=== PATIENT | male | born 1965 | race Caucasian/White ===

== ENCOUNTER 2023-07-11 08:11 | Outpatient (OUT) | payer OTHER, SELFPAY ==
[2023-07-11 08:39] LABS: Basophils Absolute Auto 0.1 10^3/uL (0.0-0.1); Basophils Percent Auto 1.7 % (0.2-2.0); Eosinophils Percent Auto 0.5 % (0.9-7.0); Hematocrit 46.7 % (42.0-54.0); Hemoglobin 15.5 g/dL (14.0-18.0); Immature Granulocytes Pct Auto 1.7 % (0.0-0.5); Lymphocytes Absolute Auto 1.6 10^3/uL (1.2-3.8); Lymphocytes Percent Auto 26.2 % (20.5-60.0); Mean Corpuscular HGB Conc 33.2 g/dL (29.9-35.2); Mean Corpuscular Hemoglobin 29.6 pg (25.9-34.0); Mean Corpuscular Volume 89.3 fL (80.0-94.0); Monocytes Absolute Auto 1.1 10^3/uL (0.3-0.8); Monocytes Percent Auto 18.7 % (1.7-12.0); Neutrophils Absolute Auto 3.1 10^3/uL (1.4-6.5); Neutrophils Percent Auto 51.2 % (43.0-75.0); Platelet Count 144 10^3/uL (150-450); Red Blood Count 5.23 10^6/uL (4.70-6.10); Red Cell Distribution Width 13.2 % (11.0-15.0)
[2023-07-11 08:56] LABS: Alanine Aminotransferase 44 U/L (16-63); Albumin Globulin Ratio 0.9; Albumin Level 3.8 g/dL (3.4-5.0); Alkaline Phosphatase 59 U/L (46-116); Anion Gap 11.5; Aspartate Amino Transferase 38 U/L (15-37); BUN Creatinine Ratio 14.4; Bilirubin Total 0.7 mg/dL (0.2-1.0); Calcium 9.6 mg/dL (8.5-10.1); Carbon Dioxide 30.6 mmol/L (21.0-32.0); Chloride 99 mmol/L (98-107); Chol HDL Ratio 5.3; Cholesterol 282 mg/dL (<=200); Estimated GFR (African America >60 (>=60); Estimated GFR (Non-African Ame >60 (>=60); Globulin 4.3 g/dL; Glucose 117 mg/dL (74-106); HDL Cholesterol 53 mg/dL (40-60); Potassium 4.1 mmol/L (3.5-5.1); Sodium 137 mmol/L (136-145); Total Protein 8.1 g/dL (6.4-8.2); Triglycerides 201 mg/dL (<=150); VLDL CHOLESTEROL 40.2 mg/dL
[2023-07-11 09:16] LABS: Prostate Specific Antigen Scrn 1.58 ng/mL (<=4.00)
== END 2023-07-11 08:12 | disposition home or self-care (01) ==
LOC: LAB 08:15
PROVIDERS: PCP Internal Medicine; Visit Provider Internal Medicine
DX: Z00.00 Encounter for general adult medical examination without abnormal findings (principal)
CPT/HCPCS: 36415; 80053; 80061; 85025; G0103

== ENCOUNTER 2023-09-28 06:44 | Outpatient (OUT) | payer OTHER, SELFPAY ==
--- OUTSIDE RECORDS SUMMARY | 2023-09-28 06:47 | XMS_ITS | CCD ---
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 Name Role Phone Devendra Carr Primary Care Provider BERT WOOTEN Referring Unavailable DEVENDRA CARR Primary Care Unavailable Devendra Carr Primary Care Provider Devendra Carr DO Primary Care Provider [phone] DEVENDRA CARR Referring Unavailable DEVENDRA CARR Primary Care Unavailable Devendra Carr DO Primary Care Provider [phone] DR DEVENDRA CARR Attending Unavailable BALL, DR VIDALES Consulting Unavailable BALL, DR VIDALES Primary Care Unavailable BALL, DR VIDALES Admitting Unavailable Devendra Carr Unavailable Desmond Stoll Unavailable [phone] Allergies Allergy Classification Reported Allergen(s) Allergy Type Date of Onset Reaction(s) Facility (4 sources) Penicillins Propensity to adverse reactions to drug 0 [employer] Phone: (1 source) Penicillins Drug allergy (disorder) 5 [facility] Repository (7 sources) Substance with penicillin structure and antibacterial mechanism of action (substance) Drug allergy 5 Unknown [employer] Other Medications Current Medications Medication Drug Class(es) Dates Sig (Normalized) Sig (Original) atorvastatin 40 mg oral tablet (11 sources) HMG-CoA Reductase Inhibitor Start: 07-20-2019 atorvastatin (LIPITOR) 40 MG tablet take 5 tablets by mo uth every twenty-four hours Atorvastatin Calcium 40 MG 5 mL Orally Once a day for 30 days Active take 1 tablet by john paul th every twenty-four hours Atorvastatin Calcium 80 MG 1 tablet Oral ly Once a day Active cyproheptadine hydrochloride 4 mg oral tablet (11 sources) Start: 07-31-2018 take 1 tablet by mouth three times daily as needed cyproheptadine (PERIACTIN) 4 MG tablet TAKE 1/2 TO 1 TABLET BY MOUTH THREE TIMES DAILY NEEDED FOR ITCHING 0 07/31/2018 Active take 1 tablet by john paul th once daily at bedtime Cyproheptadine HCl 4 MG 1 tablet Orally qhs Not-Taking/PRN loratadine 10 mg oral tablet (7 sources) take 1 tablet by john paul th every twenty-four hours Claritin 10 MG 1 tablet Orally Once a day Active Completed/Discontinued Medications Medication Drug Class(es) Dates Sig (Normalized) Sig (Original) azithromycin 250 mg oral tablet (7 sources) Macrolide Antimicrobial Start: 05-20-2023 Azithromycin 250 MG as directed Orally daily for 5 days May, Not-Taking/PRN doxycycline hyclate 100 mg oral capsule (6 sources) Tetracycline-class Drug Start: 06-04-2023 take 1 capsule by mouth every twelve hours Doxycycline Hyclate 100 MG 1 capsule Orally Twice a day for 7 days May, Not-Taking/PRN fludeoxyglucose F 18 injection 12.46 millicurie (1 source) Start: 07-01-2019 End: 07-01-2019 fludeoxyglucose F 18 injection 12.46 [facility] levoFLOXacin 500 mg oral tablet (6 sources) Quinolone Antimicrobial Start: 06-04-2023 take 1 tablet by mouth every twenty-four hours levoFLOXacin 500 MG 1 tablet Orally Once a day for 7 days May, Not-Taking/PRN 10 ml lidocaine hydrochloride 10 mg/ml injection (1 source) Antiarrhythmic, Amide Local Anesthetic Start: 08-18-2019 End: 08-18-2019 lidocaine PF 1 % injection Suprep Bowel Prep . (7 sources) Start: 07-21-2014 Suprep Bowel Prep . as directed Orally as directed for 1 dose(s) Jul, Not-Taking/PRN Start: 07-21-2014 Suprep Bowel P rep . as directed Orally as directed for 1 dose(s) Jul, Not-Taking Problems Active Problems Problem Classification Problem Date Documented Da te Episodic/Chronic Acute bronchitis (2 sources) Acute bronchitis due to other specified organisms Episodic Allergic reactions (7 sources) Idiopathic urticaria; Translations: [Idiopathic urticaria] Episodic Cancer of testis (7 sources) Malignant neoplasm of descended left testis; Translations: [Primary malignant neoplasm of left descended testis (disorder)] Chronic Cancer of testis (1 source) Personal history of malignant neoplasm of testis Episodic Diabetes mellitus without complication (1 source) Hyperglycemia, unspecified Episodic Disorders of lipid metabolism (10 sources) Pure hypercholesterolemi a; 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 Hyperplasia of prostate (7 sources) Lower urinary tract symptoms due to benign prostatic hypertrophy; Translations: [Benign prostatic hyperplasia with lower urinary tract symptoms] Chronic Lymphadenitis (9 sources) Lymphadenopathy; Translations: [Axillary lymphadenopathy] Episodic Other and unspecified benign neoplasm (7 sources) Lipoma of left upper limb; Translations: [Benign lipomatous neoplasm of skin and subcutaneous tissue of left arm] Episodic Other and unspecified benign neoplasm (5 sources) History of polyp of colon; Translations: [Personal history of colonic polyps] Episodic Other and unspecified benign neoplasm (1 source) Personal history of colonic polyps Episodic Other liver diseases (7 sources) Steatosis of liver; Translations: [Fatty (change of) liver, not elsewhere classified] Chronic Other lower respiratory disease (7 sources) Nodule of lung; Translations: [Solitary pulmonary nodule] Episodic Other nutritional; endocrine; and metabolic disorders (12 sources) Body mass index 30+ - obesity; Translations: [Body mass index (BMI) 36.0-36.9, adult] Chronic Other nutritional; endocrine; and metabolic disorders (7 sources) Severe obesity; Translations: [Morbid (severe) obesity due to excess calories] Chronic Other nutritional; endocrine; and metabolic disorders (2 sources) Morbid (severe) obesity due to excess calories Chronic Other nutritional; endocrine; and metabolic disorders (1 source) Body mass index (BMI) 36.0-36.9, adult Chronic Other nutritional; endocrine; and metabolic disorders (1 source) Body mass index (BMI) 38.0-38.9, adult Chronic Other screening for suspected conditions (not mental disorders or infectious disease) (3 sources) Encounter for screening for malignant neoplasm of prostate; Translations: [Encounter for screening for malignant neoplasm of colon] Onset: 06-28-2022 Episodic Other skin disorders (7 sources) Hair follicle disorder; Translations: [Other specified follicular disorders] Episodic Residual codes; unclassified (7 sources) Family history of cancer of colon; Translations: [Family history of malignant neoplasm of digestive organs] Episodic Residual codes; unclassified (1 source) Family history of malignant neoplasm of digestive organs Episodic Past or Other Problems Problem Classification Problem Date Documented Da te Episodic/Chronic Other lower respiratory disease (1 source) Solitary nodule of lung; Translations: [Incidental pulmonary nodule] Episodic Other lower respiratory disease (1 source) Lung mass Episodic Results Test Name Value Interpretation Reference Range Facility CBC AUTO DIFFon 06-23-2022 BASO # 0.1 103/ul Normal 0.0-0.1 [facility] Comment on above: Performed By: #### C BC #### [facility] [address] [address] [address] Yonas Ivan Basophils/100 WBC (Bld) 1.8 % Normal 0.2-2.0 [facility] Comment on above: Performed By: #### C BC #### [facility] [address] [address] [address] Yonas Ivan EO # 0.2 103/ul Normal 0.0-0.7 [facility] Comment on above: Performed By: #### C BC #### [facility] [address] [address] [address] Yonas Ivan Eosinophils/100 WBC (Bld) 2.7 % Normal 0.9-7.0 [facility] Comment on above: Performed By: #### C BC #### [facility] [address] [place] [address] Dr. Yonas Ivan Erythrocyte distribution width (RBC) [Ratio] 13.1 % Normal 11.0-15.0 [facility] Comment on above: Performed By: #### C BC #### [facility] [address] [place] [address] Dr. Yonas Ivan Hematocrit (Bld) [Volume fraction] 46.8 % Normal 42.0-54.0 [facility] Comment on above: Performed By: #### C BC #### [facility] [address] [place] [address] Dr. Yonas Ivan Hemoglobin (Bld) [Mass/Vol] 15.9 g/dL Normal 14.0-18.0 [facility] Comment on above: Performed By: #### C BC #### [facility] [address] [address] [address] Yonas Ivan IG # 0.09 10e3/ul Critically high 0.00-0.03 [facility] Comment on above: Performed By: #### C BC #### [facility] [address] [address] [address] Yonas Ivan IG % 1.2 % Critically high 0.0-0.5 [facility] Comment on above: Performed By: #### C BC #### [facility] [address] [place] [address] Dr. Yonas Ivan LYMPH # 1.5 103/ul Normal 1.2-3.8 [facility] Comment on above: Performed By: #### C BC #### [facility] [address] [place] [address] Dr. Yonas Ivan Lymphocytes/100 WBC (Bld) 21.2 % Normal 20.5-60.0 [facility] Comment on above: Performed By: #### C BC #### [facility] [address] [place] [address] Dr. Yonas Ivan MANUAL DIFF REQ NO Normal [facility] Comment on above: Performed By: #### C BC #### [facility] [address] [place] [address] Dr. Yonas Ivan MCH (RBC) [Entitic mass] 29.3 pg Normal 25.9-34.0 [facility] Comment on above: Performed By: #### C BC #### [facility] [address] [place] [address] Dr. Yonas Ivan MCHC (RBC) [Mass/Vol] 34.0 g/dL Normal 29.9-35.2 [facility] Comment on above: Performed By: #### C BC #### [facility] [address] [place] [address] Dr. Yonas Ivan MCV (RBC) [Entitic vol] 86.2 fL Normal 80.0-94.0 [facility] Comment on above: Performed By: #### C BC #### [facility] [address] [address] [address] Yonas Ivan MONO # 0.6 103/ul Normal 0.3-0.8 [facility] Comment on above: Performed By: #### C BC #### [facility] [address] [place] [address] Dr. Yonas Ivan Monocytes/100 WBC (Bld) 8.0 % Normal 1.7-12.0 [facility] Comment on above: Performed By: #### C BC #### [facility] [address] [place] [address] Dr. Yonas Ivan NEUT # 4.7 103/ul Normal 1.4-6.5 [facility] Comment on above: Performed By: #### C BC #### [facility] [address] [place] [address] Dr. Yonas Ivan Neutrophils/100 WBC (Bld) 65.1 % Normal 43.0-75.0 [facility] Comment on above: Performed By: #### C BC #### [facility] [address] [place] [address] Dr. Yonas Ivan Platelet mean volume (Bld) [Entitic vol] 9.0 fL Critically low 9.5-13.5 [facility] Comment on above: Performed By: #### C BC #### [facility] [address] [place] [address] Dr. Yonas Ivan PLT 173 103/ul Normal 150-450 [facility] Comment on above: Performed By: #### C BC #### [facility] [address] [place] [address] Dr. Yonas Ivan RBC 5.43 106/ul Normal 4.70-6.10 [facility] Comment on above: Performed By: #### C BC #### [facility] [address] [place] [address] Dr. Yonas Ivan WBC 7.3 103/ul Normal 4.0-11.0 [facility] Comment on above: Performed By: #### C BC #### [facility] [address] [place] [address] Dr. Yonas Ivan LIPID PROFILEon 06-23-2022 CHOL-HDL RATIO NORM SEE BELOW Normal [facility] Comment on above: Result Comment: 3.3 - 4.4 LOW RISK 4.4 - 7.1 AVERAGE RISK 7.1 - 11.0 MODERATE RISK >11.0 HIGH RISK Performed By: #### L IPID, CMP #### [facility] [address] [address] [address] Yonas Ivan Cholesterol [Mass/Vol] 256 mg/dL Critically high <=200 [facility] Comment on above: Performed By: #### L IPID, CMP #### [facility] [address] [address] [address] Yonas Ivan Cholesterol in HDL [Mass/Vol] 52 mg/dL Normal 40-60 [facility] Comment on above: Performed By: #### L IPID, CMP #### [facility] [address] [address] [address] Yonas Ivan Cholesterol in LDL [Mass/Vol] 169.8 mg/dL Normal [facility] Comment on above: Performed By: #### L IPID, CMP #### [facility] [address] [address] [address] Yonas Ivan Cholesterol.total/C holesterol in HDL [Mass ratio] 4.9 {ratio} Normal [facility] Comment on above: Performed By: #### L IPID, CMP #### [facility] [address] [address] [address] Yonas Ivan HDL NORMAL > or = 60 mg/dl - LO W CARDIOVASCULAR RISK <40 mg/dl - HIGH CARDIOVASCULAR RISK Normal [facility] Comment on above: Performed By: #### L IPID, CMP #### [facility] [address] [address] [address] Yonas Ivan LDL CALC NORMAL SEE BELOW Normal [facility] Comment on above: Result Comment: <100 mg/dl OPTIMAL 100 - 129 mg/dl NEAR OR ABOVE OPTIMAL 130 - 159 mg/dl BORDERLINE HIGH 160 - 189 mg/dl HIGH >190 mg/dl VERY HIGH Performed By: #### L IPID, CMP #### [facility] [address] [address] [address] Yonas Ivan Triglyceride [Mass/Vol] 171 mg/dL Critically high <=150 [facility] Comment on above: Performed By: #### L IPID, CMP #### [facility] [address] [place] [address] Dr. Yonas Ivan VLDL CALC 34.2 mg/dL Normal [facility] Comment on above: Performed By: #### L IPID, CMP #### [facility] [address] [place] [address] Dr. Yonas Ivan PROF 14(COMP METB)on 022 Albumin [Mass/Vol] 4.0 g/dL Normal 3.4-5.0 [facility] Comment on above: Performed By: #### L IPID, CMP #### [facility] [address] [place] [address] Dr. Yonas Ivan Albumin/Globulin [Mass ratio] 1.1 {ratio} Normal [facility] Comment on above: Performed By: #### L IPID, CMP #### [facility] [address] [place] [address] Dr. Yonas Ivan ALP [Catalytic activity/Vol] 67 U/L Normal 46-116 [facility] Comment on above: Performed By: #### L IPID, CMP #### [facility] [address] [place] [address] Dr. Yonas Ivan ALT [Catalytic activity/Vol] 29 U/L Normal 16-63 [facility] Comment on above: Performed By: #### L IPID, CMP #### [facility] [address] [place] [address] Dr. Yonas Ivan Anion gap [Moles/Vol] 9.8 mmol/L Normal [facility] Comment on above: Performed By: #### L IPID, CMP #### [facility] [address] [place] [address] Dr. Yonas Ivan AST [Catalytic activity/Vol] 22 U/L Normal 15-37 [facility] Comment on above: Performed By: #### L IPID, CMP #### [facility] [address] [place] [address] Dr. Yonas Ivan Bilirubin [Mass/Vol] 0.6 mg/dL Normal 0.2-1.0 [facility] Comment on above: Performed By: #### L IPID, CMP #### [facility] [address] [place] [address] Dr. Yonas Ivan Calcium [Mass/Vol] 9.4 mg/dL Normal 8.5-10.1 [facility] Comment on above: Performed By: #### L IPID, CMP #### [facility] [address] [place] [address] Dr. Yonas Ivan Chloride [Moles/Vol] 101 mmol/L Normal 98-107 [facility] Comment on above: Performed By: #### L IPID, CMP #### [facility] [address] [place] [address] Dr. Yonas Ivan CO2 [Moles/Vol] 33.5 mmol/L Critically high 21.0-32.0 [facility] Comment on above: Performed By: #### L IPID, CMP #### [facility] [address] [place] [address] Dr. Yonas Ivan Creatinine [Mass/Vol] 0.97 mg/dL Normal 0.70-1.30 [facility] Comment on above: Performed By: #### L IPID, CMP #### [facility] [address] [place] [address] Dr. Yonas Ivan EGFR-AF DJIBOUTIAN >60 Normal >=60 [facility] Comment on above: Performed By: #### L IPID, CMP #### [facility] [address] [place] [address] Dr. Yonas Ivan EGFR-NON AF DJIBOUTIAN >60 Normal >=60 [facility] Comment on above: Performed By: #### L IPID, CMP #### [facility] [address] [place] [address] Dr. Yonas Ivan Globulin (S) [Mass/Vol] 3.7 g/dL Normal [facility] Comment on above: Performed By: #### L IPID, CMP #### [facility] [address] [address] [address] Yonas Ivan Glucose [Mass/Vol] 105 mg/dL Normal 74-106 [facility] Comment on above: Performed By: #### L IPID, CMP #### [facility] [address] [address] [address] Yonas Ivan Potassium [Moles/Vol] 4.3 mmol/L Normal 3.5-5.1 [facility] Comment on above: Performed By: #### L IPID, CMP #### [facility] [address] [place] [address] Dr. Yonas Ivan Protein [Mass/Vol] 7.7 g/dL Normal 6.4-8.2 [facility] Comment on above: Performed By: #### L IPID, CMP #### [facility] [address] [place] [address] Dr. Yonas Ivan Sodium [Moles/Vol] 140 mmol/L Normal 136-145 [facility] Comment on above: Performed By: #### L IPID, CMP #### [facility] [address] [place] [address] Dr. Yonas Ivan Urea nitrogen [Mass/Vol] 13.0 mg/dL Normal 7.0-18.0 [facility] Comment on above: Performed By: #### L IPID, CMP #### [facility] [address] [place] [address] Dr. Yonas Ivan Urea nitrogen/Creatinine [Mass ratio] 13.4 mg/mg Normal [facility] Comment on above: Performed By: #### L IPID, CMP #### [facility] [address] [place] [address] Dr. Yonas Ivan PSA, Screeningon 06-05-2021 Prostatic Spec. Ag 1.30 ug/L Normal <4.1 [facility] Comment on above: Result Comment: The [employer] ECLIA assay is used. Results obtained with different assay methods cannot be used interchangeably. Performed By: #### C P, ZFAST, CDP #### [facility] [address] [place] [address] [employer] Sales Representative: Leo Barnes MD #### PSAS, LIPR #### [employer] [address] [place] [address] [employer] Sales Representative: Al Arriaga MD CBC Auto Differentialon 11-2 Absolute Eos # 0.20 [facility] th Absolute Immature Granulocyte NOT REPORTED [facility] Absolute Lymph # 1.30 [facility] Absolute [place] # 0.50 [facility] He[facility] lth Basophils (Bld) [#/Vol] 0.10 10*3/uL [facility] Basophils/100 WBC (Bld) 1 % 0 - 2 % [facility] Differential Type YES [facility]alth Eosinophils/100 WBC (Bld) 3 % 0 - 5 % [facility] Hematocrit (Bld) [Volume fraction] 44.8 % 41 - 53 % [facility] Hemoglobin.gastroin testinal spec 1 Ql (Stl) 15.4 g/dL 13.5 - 17.5 g/dL [facility] Immature Granulocytes NOT REPORTED 0 % [facility] Lymphocytes/100 WBC (Bld) 18 % 13 - 44 % [facility] MCH (RBC) [Entitic mass] 29.8 pg 26 - [address] [facility] MCHC (RBC) [Mass/Vol] 34.3 g/dL 31 - 37 g/dL [facility] MCV (RBC) [Entitic vol] 87.0 fL 80 - [address] [facility] Monocytes/100 WBC (Bld) 7 % 5 - 9 % [facility] NRBC Automated NOT REPORTED per 100 WBC [facility] [employer] Platelet distribution width (Bld) [Ratio] 13.5 % 12.1 - 15.2 % [facility] Platelet Estimate NOT REPORTED [facility] Platelet mean volume (Bld) [Entitic vol] NOT REPORTED 6.0 - 12.[address] [facility] Platelets (Bld) [#/Vol] 218 10*3/uL [facility] RBC (Bld) [#/Vol] 5.15 10*6/uL 4.5 - 5.9 m/uL [facility] RBC (Bld) [#/Vol] NOT REPORTED [facility] Segmented neutrophils/100 WBC (Bld) 71 % 39 - 75 % [facility] Segs Absolute 5.40 [facility] W[facility] (Bld) [#/Vol] 7.5 10*3/uL [facility] WBC (Bld) [#/Vol] NOT REPORTED [facility] CBC with Diffon 06-04-2021 Abs. Basophil 0.10 k/uL Normal 0.0-0.2 [facility] Comment on above: Performed By: #### C P, ZFAST, CDP #### [facility] [address] [place] [address] [employer] Sales Representative: Leo Barnes MD #### PSAS, LIPR #### [address] [id number] [employer] Sales Representative: Al Arriaga MD Abs.Neutrophil (Seg) 5.40 k/uL Normal 2.1-6.5 [facility] Comment on above: Performed By: #### C P, ZFAST, CDP #### [facility] [address] [place] [address] [employer] Sales Representative: Leo Barnes MD #### PSAS, LIPR #### [address] [id number] [employer] Sales Representative: Al Arriaga MD Auto Diff Performed YES Normal [facility] Comment on above: Performed By: #### C P, ZFAST, CDP #### [facility] [address] [place], [place] [id number] [employer] Sales Representative: Leo Barnes MD #### PSAS, LIPR #### [address] [id number] [employer] Sales Representative: Al Arriaga MD Basophils/100 WBC (Bld) 1 % Normal 0-2 [facility] Comment on above: Performed By: #### C P, ZFAST, CDP #### [facility] [address] [place], [place] [id number] [employer] Sales Representative: Leo Barnes MD #### PSAS, LIPR #### [address], [place] [id number] [employer] Sales Representative: Al Arriaga MD Eosinophils (Bld) [#/Vol] 0.20 10*3/uL Normal 0.0-0.4 [facility] Comment on above: Performed By: #### C P, ZFAST, CDP #### [facility] [address] [place], [place] [id number] [employer] Sales Representative: Leo Barnes MD #### PSAS, LIPR #### [address] [place], [place] [id number] [employer] Sales Representative: Al Arriaga MD Eosinophils/100 WBC (Bld) 3 % Normal 0-5 [facility] Comment on above: Performed By: #### C P, ZFAST, CDP #### [facility] [address] [place] [address] [employer] Sales Representative: Leo Barnes MD #### PSAS, LIPR #### [id number] [place], [place] [id number] [employer] Sales Representative: Al Arriaga MD Erythrocyte distribution width (RBC) [Ratio] 13.5 % Normal 12.1-15.2 [facility] Comment on above: Performed By: #### C P, ZFAST, CDP #### [facility] [address] [place] [address] [employer] Sales Representative: Leo Barnes MD #### PSAS, LIPR #### [id number] [place], [place] [id number] [employer] Sales Representative: Al rAriaga MD Hematocrit (Bld) [Volume fraction] 44.8 % Normal 41-53 [facility] Comment on above: Performed By: #### C P, ZFAST, CDP #### [facility] [address] [place], [place] [id number] [employer] Sales Representative: Leo Barnes MD #### PSAS, LIPR #### [address] [place] [address] [employer] Sales Representative: Al Arriaga MD Hemoglobin (Bld) [Mass/Vol] 15.4 g/dL Normal 13.5-17.5 [facility] Comment on above: Performed By: #### C P, ZFAST, CDP #### [facility] Lab [address] [place], [place] [phone] Title Insurance Sales Representative: eLo Barnes MD #### PSAS, LIPR #### [address] [address] [employer] Sales Representative: Al Arriaga MD Lymphocytes (Bld) [#/Vol] 1.30 10*3/uL Normal 1.0-4.8 [facility] Comment on above: Performed By: #### C P, ZFAST, CDP #### [facility] Lab [address] [phone] [employer] Sales Representative: Leo Barnes MD #### PSAS, LIPR #### [address] [phone] [employer] Sales Representative: Al Arriaga MD Lymphocytes/100 WBC (Bld) 18 % Normal 13-44 [facility] Comment on above: Performed By: #### C P, ZFAST, CDP #### [facility] Lab [address] [phone] [employer] Sales Representative: Leo Barnes MD #### PSAS, LIPR #### [address] [phone] [employer] Sales Representative: Al Arriaga MD MCH (RBC) [Entitic mass] 29.8 pg Normal 26-34 [facility] Comment on above: Performed By: #### C P, ZFAST, CDP #### [facility] [address] [place], [place] [phone] [employer] Sales Representative: Leo Barnes MD #### PSAS, LIPR #### [address] [place], [place] [phone] [employer] Sales Representative: Al Arriaga MD MCHC (RBC) [Mass/Vol] 34.3 g/dL Normal 31-37 [facility] Comment on above: Performed By: #### C P, ZFAST, CDP #### [facility] [address] [phone] ( Title [employer] Sales Representative: Leo Barnes MD #### PSAS, LIPR #### [address] [phone] [employer] Sales Representative: Al Arriaga MD MCV (RBC) [Entitic vol] 87.0 fL Normal 80-100 [facility] Comment on above: Performed By: #### C P, ZFAST, CDP #### [facility] [address] [phone] ( Title [employer] Sales Representative: Leo Barnes MD #### PSAS, LIPR #### [address] [phone] [employer] Sales Representative: Al Arriaga MD Monocytes (Bld) [#/Vol] 0.50 10*3/uL Normal 0.0-1.0 [facility] Comment on above: Performed By: #### C P, ZFAST, CDP #### [facility] [address] [phone] [employer] Sales Representative: Leo Barnes MD #### PSAS, LIPR #### [address] [phone] [employer] Sales Representative: Al Arriaga MD Monocytes/100 WBC (Bld) 7 % Normal 5-9 [facility] Comment on above: Performed By: #### C P, ZFAST, CDP #### [facility] [address] [address] [employer] Sales Representative: Leo Barnes MD #### PSAS, LIPR #### [address] [place] [address] Title [employer] Sales Representative: Al Arriaga MD Neutrophil (Seg) 71 % Normal 39-75 [facility] Comment on above: Performed By: #### C P, ZFAST, CDP #### [facility] [address] [place] [address] Title [employer] Sales Representative: Leo Barnes MD #### PSAS, LIPR #### [address] [address] [employer] Sales Representative: Al Arriaga MD Platelets (Bld) [#/Vol] 218 10*3/uL Normal 140-450 [facility] Comment on above: Performed By: #### C P, ZFAST, CDP #### [facility] [address] [place] [address] [employer] Sales Representative: Leo Barnes MD #### PSAS, LIPR #### [address] [address] [employer] Sales Representative: Al Arriaga MD RBC (Bld) [#/Vol] 5.15 10*6/uL Normal 4.5-5.9 [facility] Comment on above: Performed By: #### C P, ZFAST, CDP #### [facility] [address] [place], [place] [phone] [employer] Sales Representative: Leo Barnes MD #### PSAS, LIPR #### [address] [id number] [employer] Sales Representative: Al Arriaga MD WBC (Bld) [#/Vol] 7.5 10*3/uL Normal 3.5-11.0 [facility] Comment on above: Performed By: #### C P, ZFAST, CDP #### [facility] [address] [place] [address] [employer] Sales Representative: Leo Barnes MD #### PSAS, LIPR #### [address] [phone] Title [employer] Sales Representative: Al Arriaga MD Abs.Imm.Granulocyte NOT REPORTED Normal 0.00-0.30 [facility] Comment on above: Performed By: #### C P, ZFAST, CDP #### [facility] [address] [place], [place] 2479290 Title [employer] Sales Representative: Leo Barnes MD #### PSAS, LIPR #### [address] [phone] Title [employer] Sales Representative: Al Arriaga MD Immature Granulocyte NOT REPORTED Normal 0 [facility] Comment on above: Performed By: #### C P, ZFAST, CDP #### [facility] [address] [phone] [employer] Sales Representative: Leo Barnes MD #### PSAS, LIPR #### [address] [phone] Title [employer] Sales Representative: Al Arriaga MD MPV NOT REPORTED Normal 6.0-12.0 [facility] Comment on above: Performed By: #### C P, ZFAST, CDP #### [facility] [address] [phone] [employer] Sales Representative: Leo Barnes MD #### PSAS, LIPR #### [address] [address] Title [employer] Sales Representative: Al Arriaga MD NRBC Automated NOT REPORTED Normal [facility] Comment on above: Performed By: #### C P, ZFAST, CDP #### [facility] [address] [place], [place] 1411090 Title [employer] Sales Representative: Leo Barnes MD #### PSAS, LIPR #### [address] [address] [employer] Sales Representative: Al Arriaga MD Platelet Comment NOT REPORTED Normal [facility] Comment on above: Performed By: #### C P, ZFAST, CDP #### [facility] [address] [place], [place] [phone] Title Insurance Sales Representative: Leo Barnes MD #### PSAS, LIPR #### [facility] [address] [place] [id number] [employer] Sales Representative: Al Arriaga MD RBC morphology finding Nom (Bld) NOT REPORTED Normal [facility] Comment on above: Performed By: #### C P, ZFAST, CDP #### [facility] [address] [place], [place] [phone] Title [employer] Sales Representative: Leo Barnes MD #### MARYLU, LIPR #### [address] [phone] [employer] Sales Representative: Al Arriaga MD WBC Morphology NOT REPORTED Normal [facility] Comment on above: Performed By: #### C PKOMALAST, CDP #### [facility] [address] [place] [address] [employer] Sales Representative: Leo Barnes MD #### PSAS, LIPR #### [address] [address] [employer] Sales Representative: Al Arriaga MD Comp Metabolic Profon 2020 (cont.) Normal [facility] Comment on above: Result Comment: Aver age GFR for 50-59 years old: 93 mL/min/1.73sq m Chronic Kidney Disease: <60 mL/min/1.73sq m Kidney failure: <15 mL/min/1.73sq m eGFR calculated using average adult body mass. Additional eGFR calculator available at: http://www.Rapidlea.com/multiple_crcl_2011.htm Performed By: #### C P ZFAST, CDP #### [facility] [address] [place], [place] [phone] Title [employer] Sales Representative: Leo Barnes MD #### PSAS, LIPR #### [address] [place], [place] [phone] Title [employer] Sales Representative: Al Arriaga MD Albumin [Mass/Vol] 4.5 g/dL Normal 3.5-5.2 [facility] Comment on above: Performed By: #### C P, ZFAST, CDP #### [facility] [address] [place], [place] [phone] [employer] Sales Representative: Leo Barnes MD #### MARYLU, LIPR #### [address] [phone] [employer] Sales Representative: Al Arriaga MD Alkaline Phos 66 U/L Normal 40-129 [facility] Comment on above: Performed By: #### C PKOMALAST, CDP #### [facility] [address] [place], [place] [phone] [employer] Sales Representative: Leo Barnes MD #### MARYLU, LIPR #### [address] [phone] [employer] Sales Representative: Al Arriaga MD ALT [Catalytic activity/Vol] 21 U/L Normal 5-41 [facility] Comment on above: Performed By: #### C P, ZFAST, CDP #### [facility] [address] [place], [place] [phone] [employer] Sales Representative: Leo Barnes MD #### PSAS, LIPR #### [address] [phone] [employer] Sales Representative: Al Arriaga MD Anion gap [Moles/Vol] 7 mmol/L Low 9-17 [facility] Comment on above: Performed By: #### C PKOMALAST, CDP #### [facility] [address] [place], [place] 9756190 Title [employer] Sales Representative: Leo Barnes MD #### PSAS, LIPR #### [address] [phone] [employer] Sales Representative: Al Arriaga MD AST [Catalytic activity/Vol] 19 U/L Normal <40 [facility] Comment on above: Performed By: #### C P, ZFAST, CDP #### [facility] [address] [place], [place] 1996390 [employer] Sales Representative: Leo Barnes MD #### MARYLU, LIPR #### [address] [phone] [employer] Sales Representative: Al Arriaga MD Bilirubin [Mass/Vol] 0.60 mg/dL Normal 0.30-1.20 [facility] Comment on above: Performed By: #### Len P, ZFAST, CDP #### [facility] [address] [place], [place] [phone] [employer] Sales Representative: Leo Barnes MD #### PSANoris, LIPR #### [address] [phone] [employer] Sales Representative: Al Arriaga MD BUN/CRE Ratio 19 Normal 9-20 [facility] Comment on above: Performed By: #### C P, ZFAST, CDP #### [facility] [address] [place], [place] [phone] Title [employer] Sales Representative: Leo Barnes MD #### PSAS, LIPR #### [address] [phone] [employer] Sales Representative: Al Arriaga MD Calcium [Mass/Vol] 10.0 mg/dL Normal 8.6-10.4 [facility] Comment on above: Performed By: #### C P, ZFAST, CDP #### [facility] [address] [place] [address] [employer] Sales Representative: Leo Barnes MD #### PSAS, LIPR #### [address] [place], [place] [phone] Title [employer] Sales Representative: Al Arriaga MD Chloride [Moles/Vol] 103 mmol/L Normal 98-107 [facility] Comment on above: Performed By: #### C P, ZFAST, CDP #### [facility] [address] [place], [place] [phone] [employer] Sales Representative: Leo Barnes MD #### PSAS, LIPR #### [address] [phone] [employer] Sales Representative: Al Arriaga MD CO2 [Moles/Vol] 30 mmol/L Normal 20-31 [facility] Comment on above: Performed By: #### C P, ZFAST, CDP #### [facility] [address] [phone] [employer] Sales Representative: Leo Barnes MD #### PSAS, LIPR #### [address] [phone] [employer] Sales Representative: Al Arriaga MD Creatinine [Mass/Vol] 0.90 mg/dL Normal 0.70-1.20 [facility] Comment on above: Performed By: #### C P, ZFAST, CDP #### [facility] [address] [place] [address] [employer] Sales Representative: Leo Barnes MD #### PSAS, LIPR #### [address] [phone] [employer] Sales Representative: Al Arriaga MD GFR, Amer >60 Normal >60 [facility] Comment on above: Performed By: #### C P, ZFAST, CDP #### [facility] [address] [place] [address] [employer] Sales Representative: Leo Barnes MD #### PSAS, LIPR #### [address] [place], [place] [phone] Title [employer] Sales Representative: Al Arriaga MD GFR,non Amer >60 Normal >60 [facility] Comment on above: Performed By: #### C P, ZFAST, CDP #### [facility] [address] [place], [place] [phone] [employer] Sales Representative: Leo Barnes MD #### PSAS, LIPR #### [address] [address] [place], [place] [phone] Title [employer] Sales Representative: Al Arriaga MD Glucose [Mass/Vol] 102 mg/dL High 70-99 [facility] Comment on above: Performed By: #### C P, ZFAST, CDP #### [facility] [address] [place] [address] [employer] Sales Representative: Leo Barnes MD #### PSAS, LIPR #### [address] [phone] [employer] Sales Representative: Al Arriaga MD Potassium [Moles/Vol] 4.4 mmol/L Normal 3.7-5.3 [facility] Comment on above: Performed By: #### C P, ZFAST, CDP #### [facility] [address] [place] [address] [employer] Sales Representative: Leo Barnes MD #### PSAS, LIPR #### [address] [phone] [employer] Sales Representative: Al Arriaga MD Protein [Mass/Vol] 7.4 g/dL Normal 6.4-8.3 [facility] Comment on above: Performed By: #### C P, ZFAST, CDP #### [facility] [address] [place] [address] [employer] Sales Representative: Leo Barnes MD #### PSAS, LIPR #### [address] [place], [place] 0003408 [employer] Sales Representative: Al Arriaga MD Sodium [Moles/Vol] 140 mmol/L Normal 135-144 [facility] Comment on above: Performed By: #### C P, ZFAST, CDP #### [facility] [address] [place], [place] [phone] [employer] Sales Representative: Leo Barnes MD #### PSAS, LIPR #### [address] [phone] [employer] Sales Representative: Al Arriaga MD Urea nitrogen [Mass/Vol] 17 mg/dL Normal 6-20 [facility] Comment on above: Performed By: #### C P, ZFAST, CDP #### [facility] [address] [place], [place] [phone] [employer] Sales Representative: Leo Barnes MD #### PSAS, LIPR #### [address] [address] [employer] Sales Representative: Al Arriaga MD Albumin/Glob Ratio NOT REPORTED Normal 1.0-2.5 [facility] Comment on above: Performed By: #### C P, ZFAST, CDP #### [facility] [address] [place] [address] [employer] Sales Representative: Leo Barnes MD #### PSAS, LIPR #### [address] [address] [employer] Sales Representative: Al Arriaga MD Staging: NOT REPORTED Normal [facility] Comment on above: Performed By: #### C P, ZFAST, CDP #### [facility] [address] [place] [address] [employer] Sales Representative: Leo Barnes MD #### PSAS, LIPR #### [address] [place] [address] [employer] Sales Representative: Al Arriaga MD Comprehensive Metabolic Pane larissa 06-04-2021 Albumin [Mass/Vol] 4.5 g/dL 3.5 - 5.2 g/dL [facility] Albumin/Globulin Ratio NOT REPORTED [facility] [employer] ALP (Bld) [Catalytic activity/Vol] 66 U/L 40 - 129 U/L [facility] [employer] ALT [Catalytic activity/Vol] 21 U/L 5 - 41 U/L [facility] [employer] Anion gap [Moles/Vol] 7 mmol/L Low 9 - 17 mmol/L [facility] [employer] AST [Catalytic activity/Vol] 19 U/L <40 [facility] [employer] Bilirubin [Mass/Vol] 0.60 mg/dL 0.30 - 1.20 mg/dL [facility] [employer] Calcium [Mass/Vol] 10.0 mg/dL 8.6 - 10. 4 mg/dL [facility] [employer] Chloride [Moles/Vol] 103 mmol/L 98 - 107 mmol/L [facility] [employer] CO2 [Moles/Vol] 30 mmol/L 20 - 31 mmol/L [facility] [employer] Creatinine [Mass/Vol] 0.9 mg/dL 0.70 - 1.20 mg/dL [facility] [employer] Free PSA/Total PSA [Mass fraction] 7.4 g/dL 6.4 - 8.3 g/dL [facility] [employer] GFR >60 >60 mL/min [facility] [employer] GFR Non- >60 >60 mL/min [facility] [employer] GFR/1.73 sq M.predicted MDRD (S/P/Bld) [Vol rate/Area] [facility] [employer] Comment on above: Average GFR for 50-5 9 years old: 93 mL/min/1.73sq m Chronic Kidney Disease: <60 mL/min/1.73sq m Kidney failure: <15 mL/min/1.73sq m eGFR calculated using average adult body mass. Additional eGFR calculator available at: http://www.Rapidlea.Countercepts/multiple_crcl_2012.htm GFR/1.73 sq M.predicted MDRD (S/P/Bld) [Vol rate/Area] NOT REPORTED [facility] [employer] Glucose [Mass/Vol] 102 mg/dL High 70 - 99 mg/dL [facility] Interpretation and review of laboratory results Abnormal [facility] Potassium [Moles/Vol] 4.4 mmol/L 3.7 - 5.3 mmol/L [facility] Sodium [Moles/Vol] 140 mmol/L 135 - 144 mmol/L [facility] Urea nitrogen (BldV) [Mass/Vol] 17 mg/dL 6 - 20 mg/dL [facility] Urea nitrogen/Creatinine (Bld) [Mass ratio] [address] [facility] Lipid Panelon 06-04-2021 Cholesterol [Mass/Vol] 254 mg/dL High <200 [facility] Comment on above: Cholesterol Guidelines: <200 Desirable 200-240 Borderline >240 Undesirable Cholesterol in HDL [Mass/Vol] 47 mg/dL >40 [facility] Comment on above: HDL Guidelines: <40 Undesirable 40-59 Borderline >59 Desirable Cholesterol in LDL [Mass/Vol] 169 mg/dL High 0 - 130 mg/dL [facility] Comment on above: LDL Guidelines: <100 Desirable 100-129 Near to/above Desirable 130-159 Borderline >159 Undesirable Direct (measured) LDL and calculated LDL are not interchangeable tests. Cholesterol in VLDL [Mass/Vol] NOT REPORTED High 1 - 30 mg/dL [facility] Cholesterol.total/C holesterol in HDL [Mass ratio] 5.4 {ratio} High <5 [facility] Interpretation and review of laboratory results Abnormal [facility] Triglyceride [Mass/Vol] 190 mg/dL High <150 [facility] Comment on above: Triglyceride Guidelines: <150 Desirable 150-199 Borderline 200-499 High >499 Very high Based on AHA Guidelines for fasting triglyceride, April 2012. [facility] Lipid Profileon 06-04-2021 Cholesterol [Mass/Vol] 254 mg/dL High <200 [facility] Comment on above: Result Comment: Cholesterol Guidelines: <200 Desirable 200-240 Borderline >240 Undesirable Performed By: #### C P, ZFAST, CDP #### [facility] [address] [place] [address] [employer] Sales Representative: Leo Barnes MD #### PSAS, LIPR #### [facility] [employer] [address] [place] [address] [employer] Sales Representative: Al Arriaga MD Cholesterol in HDL [Mass/Vol] 47 mg/dL Normal >40 [facility] Comment on above: Result Comment: HDL Guidelines: <40 Undesirable 40-59 Borderline >59 Desirable Performed By: #### C P, ZFAST, CDP #### [facility] [address] [place], [place] [phone] [employer] Sales Representative: Leo Barnes MD #### PSAS, LIPR #### [facility] [employer] [address] [place] [address] [phone] [employer] Sales Representative: Al Arriaga MD Cholesterol in LDL [Mass/Vol] 169 mg/dL High 0-130 [facility] Comment on above: Result Comment: LDL Guidelines: <100 Desirable 100-129 Near to/above Desirable 130-159 Borderline >159 Undesirable Direct (measured) LDL and calculated LDL are not interchangeable tests. Performed By: #### C P, KOMALAST, CDP #### [facility] [address] [phone] [employer] Sales Representative: Leo Barnes MD #### PSAS, LIPR #### [facility] [employer] [address] [place] [address] [phone] [employer] Sales Representative: Al Arriaga MD Cholesterol.total/C holesterol in HDL [Mass ratio] 5.4 {ratio} High <5 [facility] Comment on above: Performed By: #### C P, ZFAST, CDP #### [facility] [address] [phone] [employer] Sales Representative: Leo Barnes MD #### PSAS, LIPR #### [facility] [employer] [address] [place] [address] [phone] [employer] Sales Representative: Al Arriaga MD Triglyceride [Mass/Vol] 190 mg/dL High <150 [facility] Comment on above: Result Comment: Triglyceride Guidelines: <150 Desirable 150-199 Borderline 200-499 High >499 Very high Based on AHA Guidelines for fasting triglyceride, April 2012. Performed By: #### C P, ZFAST, CDP #### [facility] [address] [phone] [employer] Sales Representative: Leo Barnes MD #### PSAS, LIPR #### [facility] [address] [place] [address] [employer] Sales Representative: Al Arriaga MD Cholesterol,VLDL NOT REPORTED Normal 08-13 [facility] Comment on above: Performed By: #### C P, ZFAST, CDP #### [facility] [address] [place] [address] [employer] Sales Representative: Leo Barnes MD #### PSAS, LIPR #### [facility] [address] [place] [address] [employer] Sales Representative: Al Arriaga MD PSA screeningon 06-04-2021 [facility] Patient Fasting?on 1 Patient Fasting? YES [facility] Patient fasting?on 1 Patient fasting? YES Normal [facility] Comment on above: Performed By: #### C P, ZFAST, CDP #### [facility] [address] [place] [address] [employer] Sales Representative: Leo Barnes MD #### PSAS, LIPR #### [facility] [address] [place], [place] [phone] [employer] Sales Representative: Al Arriaga MD Comprehensive Metabolic Pane [facility] 06-04-2020 Albumin [Mass/Vol] 4.8 g/dL 3.5 - 5.2 g/dL [place], [place] Albumin/Globulin [Mass ratio] NOT REPORTED [place], [place] ALP [Catalytic activity/Vol] 79 U/L 40 - 129 U/L [place] ALT [Catalytic activity/Vol] 18 U/L 5 - 41 U/L [place] Anion gap [Moles/Vol] 9 mmol/L 9 - 17 mmol/L [place] AST [Catalytic activity/Vol] 20 U/L <40 [place] Bilirubin Ql (U) 0.80 mg/dL 0.3 - 1.2 mg/dL [place] Bun/Cre Ratio 17 [place], [place] Calcium [Mass/Vol] 10.1 mg/dL 8.6 - 10. 4 mg/dL [place] Chloride [Moles/Vol] 104 mmol/L 98 - 107 mmol/L [place] CO2 [Moles/Vol] 25 mmol/L 20 - 31 mmol/L [place] Creatinine [Mass/Vol] 0.75 mg/dL 0.7 - 1.2 mg/dL [place] GFR >60 >60 mL/min [place] GFR Non- >60 >60 mL/min [place] GFR/1.73 sq M predicted among non-blacks MDRD (S/P/Bld) [Vol rate/Area] NOT REPORTED [place] GFR/1.73 sq M predicted among non-blacks MDRD (S/P/Bld) [Vol rate/Area] [place] Comment on above: Average GFR for 50-5 9 years old: 93 mL/min/1.73sq m Chronic Kidney Disease: <60 mL/min/1.73sq m Kidney failure: <15 mL/min/1.73sq m eGFR calculated using average adult body mass. Additional eGFR calculator available at: http://www.[employer] Style/multiple_crcl_2012.htm Glucose [Mass/Vol] 92 mg/dL 70 - 99 mg/dL [place], [place] Potassium [Moles/Vol] 4.1 mmol/L 3.7 - 5.3 mmol/L [place] Protein [Mass/Vol] 8.0 g/dL 6.4 - 8.3 g/dL [place], [place] Sodium [Moles/Vol] 138 mmol/L 135 - 144 mmol/L [place] Urea nitrogen [Mass/Vol] 13 mg/dL 6 - 20 mg/dL [place] Lipid Panelon 06-04-2020 Cholesterol [Mass/Vol] 183 mg/dL <200 [place] Comment on above: Cholesterol Guidelines: <200 Desirable 200-240 Borderline >240 Undesirable Cholesterol in HDL [Mass/Vol] 47 mg/dL >40 [place] Comment on above: HDL Guidelines: <40 Undesirable 40-59 Borderline >59 Desirable Cholesterol in LDL [Mass/Vol] 113 mg/dL 0 - 130 mg/dL [place] Comment on above: LDL Guidelines: <100 Desirable 100-129 Near to/above Desirable 130-159 Borderline >159 Undesirable Direct (measured) LDL and calculated LDL are not interchangeable tests. Cholesterol in VLDL [Mass/Vol] NOT REPORTED 1 - 30 mg/dL [place] Cholesterol.total/C holesterol in HDL [Mass ratio] 3.9 {ratio} <5 [place] Triglyceride [Mass/Vol] 115 mg/dL <150 [place] Comment on above: Triglyceride Guidelines: <150 Desirable 150-199 Borderline 200-499 High >499 Very high Based on AHA Guidelines for fasting triglyceride, April 2012. Patient Fasting?on 0 Patient Fasting? YES [place], [place] Flow Cytometry,Nd/Flon 08-21 Flow Cyto,Node/Fluid VS20 1901 Normal [facility] Comment on above: Result Comment: SEE SEPARATE REPORT Performed By: #### F LNF #### [facility] [employer] [address] [place] [phone] [employer] Sales Representative: Al Arriaga MD Surgical Pathologyon 020 Surgical Pathology Report [id number] [facility] CONSULTING PATHOLOGISTS [facility] ANATOMIC PATHOLOGY [address] [place] [phone] SURGICAL PATHOLOGY CONSULTATION Patient Name: MARLO LACEY [facility] Rec: [id number] Path Number: [id number] Collected: 08/18/2019 Received: 08/19/2019 Reported: 08/20/2019 11:37 -- Diagnosis -- LEFT AXILLARY LYMPH NODE, ULTRASOUND-GUIDED CORE BIOPSIES: REACTIVE FOLLICULAR LYMPHOID HYPERPLASIA. NEGATIVE FOR MALIGNANCY AND GRANULOMATA. Jose Tang Electronically Signed Out ajb/08/20/2019 Procedures/Addenda FLOW CYTOMETRY REPORT Date Ordered: 08/19/2019 Status: Complete Date Complete: 08/19/2019 By: Date Reported: Clinical Information Pre-op Diagnosis: ABNORMAL LEFT AXILLARY LYMPH NODE, LYMPHADENOPATHY Operation Performed: ULTRASOUND GUIDED LEFT AXILLARY LYMPH NODE BIOPSY Source of Specimen 1: LEFT AXILLARY NODE (PER CONTAINER) Gross Description MARLO LACEY, LEFT AXILLARY NODE Three magana-white cores from 0.8 to 1.1 cm in length, < 0.1 cm in diameter. Entirely 1cs. mpb tm Microscopic Description Microscopic examination performed. [facility] [employer] Phone: Flow Cytometry,Nd/Flon 08-19 Flow Cytom Source LEFT AXILLARY LYMPH NODE Normal [facility] Comment on above: Performed By: #### F LNF #### [employer] [address] [place] [id number] Title Insurance Sales Representative: Al Arriaga MD Surgical Pathologyon 020 Surgical Pathology (NOTE) [id number] [employer] CONSULTING PATHOLOGISTS [facility] ANATOMIC PATHOLOGY [address] [place] [phone] SURGICAL PATHOLOGY CONSULTATION Patient Name: MARLO LACEY MR#: [id number] Specimen #[id number] Procedures/Addenda FLOW CYTOMETRY REPORT Date Ordered: 08/19/2019 Status: Signed Out Date Complete: 08/19/2019 By: Armando Huggins M.D. Date Reported: 08/20/2019 INTERPRETATION FLOW CYTOMETRIC IMMUNOPHENOTYPING OF LEFT AXILLARY LYMPH NODE IS NEGATIVE FOR B-CELL MONOCLONALITY AND T-CELL ABERRANCY (REACTIVE LYMPHOCYTES). RESULTS-COMMENTS SPECIMEN TYPE: CYTOCENTRIFUGE DIFFERENTIAL CELL COUNT: Lymph Node Tissue Lymphocytes 67% Degenerated Cells 30% Viability: 87% [place]/Hist 3% Flow cytometric immunophenotyping analysis is performed on left axillary lymph node following RBC lysis procedure. These cells are labeled by direct, five color immunostaining procedure, and analyzed on a FC500 flow cytometer. % POSITIVE Target Cells RESULTS: (Lymphocytes) 1. CD1a 0 2. CD2 63 3. CD3 61 4. CD4 49 5. CD5 67 6. CD7 58 7. CD8 12 8. CD10 3 9. CD11c 6 10. CD16/56 2 11. CD19 34 12. CD20 35 13. CD22 34 14. CD23 34 15. CD25 2 16. CD45 100 17. CD57 5 18. CD103 2 19. FMC7 34 20. [place] 20 21. Lambda 14 This test was developed and its performance characteristics determined by [facility]. It has not been cleared or approved by the U.S. Food and Drug Administration. The FDA does not require this test to go through premarket FDA review. This test is used for clinical purposes. It should not be regarded as investigational or for research. This laboratory is certified under the Clinical Laboratory Improvement Amendments of 1988 (CLIA) as qualified to perform high complexity clinical laboratory testing. Armando Huggins M.D. Final Diagnosis LEFT AXILLARY LYMPH NODE, ULTRASOUND-GUIDED CORE BIOPSIES: REACTIVE FOLLICULAR LYMPHOID HYPERPLASIA. NEGATIVE FOR MALIGNANCY AND GRANULOMATA. Jose Tang Electronically Signed Out ajb/08/20/2019 Clinical Information Pre-op Diagnosis: ABNORMAL LEFT AXILLARY LYMPH NODE, LYMPHADENOPATHY Operation Performed: ULTRASOUND GUIDED LEFT AXILLARY LYMPH NODE BIOPSY Source: 1: LEFT AXILLARY NODE (PER CONTAINER) Gross Description MARLO LACEY, LEFT AXILLARY NODE Three magana-white cores from 0.8 to 1.1 cm in length, < 0.1 cm in diameter. Entirely 1cs. mpb tm Microscopic Description Microscopic examination performed. Normal [facility] Comment on above: Performed By: #### P PPVS #### [facility] [employer] [facility] [place] [address] Title Insurance Sales Representative: Al Arriaga MD BIOPSY LYMPH NODEon 08-18 Lymphocytes (Bld) [#/Vol] PROCEDURE: ULTRASOUND GUIDED CORE BIOPSY LYMPH NODE 08/18/2019 HISTORY: ORDERING SYSTEM PROVIDED HISTORY: Enlarged lymph node History of testicular cancer with a hypermetabolic, enlarged left axillary lymph node. Biopsy has been requested. PHYSICIANS: Charlie Zavala MD SEDATION: None TECHNIQUE: Informed consent was obtained after a detailed discussion about the procedure including the risk, benefits, and alternatives. [place] protocol was followed. Axial images were obtained through the left axilla and the enlarged lymph node was localized. A suitable skin site was prepped and draped in sterile fashion. Local anesthesia was achieved with lidocaine. Core biopsy was performed with ultrasound guidance. 5 18 gauge core biopsy specimens were obtained using coaxial technique. Samples were submitted for both pathology and flow cytometry and the patient tolerated the procedure well. Dose modulation, iterative reconstruction, and/or weight based adjustment of the mA/kV was utilized to reduce the radiation dose to as low as reasonably achievable. FINDINGS: 5 18 gauge core needle biopsies obtained from an enlarged left axillary lymph node, with samples submitted for both pathology and flow cytometry. IMPRESSION: Successful ultrasound guided core needle left axillary lymph node biopsy. No immediate complications. Interpreted by: Charlie Zavala MD Signed by: Charlie Zavala MD 08/18/19 Final result Normal [facility] Successful ultrasoun d guided core needle left axillary lymph node biopsy. No immediate complications. [employer] Phone: PROCEDURE: ULTRASOUN D GUIDED CORE BIOPSY LYMPH NODE 08/18/2019 HISTORY: ORDERING SYSTEM PROVIDED HISTORY: Enlarged lymph node History of testicular cancer with a hypermetabolic, enlarged left axillary lymph node. Biopsy has been requested. PHYSICIANS: Charlie Zavala MD SEDATION: None TECHNIQUE: Informed consent was obtained after a detailed discussion about the procedure including the risk, benefits, and alternatives. [place] protocol was followed. Axial images were obtained through the left axilla and the enlarged lymph node was localized. A suitable skin site was prepped and draped in sterile fashion. Local anesthesia was achieved with lidocaine. Core biopsy was performed with ultrasound guidance. 5 18 gauge core biopsy specimens were obtained using coaxial technique. Samples were submitted for both pathology and flow cytometry and the patient tolerated the procedure well. Dose modulation, iterative reconstruction, and/or weight based adjustment of the mA/kV was utilized to reduce the radiation dose to as low as reasonably achievable. FINDINGS: 5 18 gauge core needle biopsies obtained from an enlarged left axillary lymph node, with samples submitted for both pathology and flow cytometry. [employer] Phone: [place], [facility] Incoming Radiant Results From reQwip/Zaask - 08/18/2019 2:35 PM EST PROCEDURE: ULTRASOUND GUIDED CORE BIOPSY LYMPH NODE 08/18/2019 HISTORY: ORDERING SYSTEM PROVIDED HISTORY: Enlarged lymph node History of testicular cancer with a hypermetabolic, enlarged left axillary lymph node. Biopsy has been requested. PHYSICIANS: Charlie Zavala MD SEDATION: None TECHNIQUE: Informed consent was obtained after a detailed discussion about the procedure including the risk, benefits, and alternatives. [place] protocol was followed. Axial images were obtained through the left axilla and the enlarged lymph node was localized. A suitable skin site was prepped and draped in sterile fashion. Local anesthesia was achieved with lidocaine. Core biopsy was performed with ultrasound guidance. 5 18 gauge core biopsy specimens were obtained using coaxial technique. Samples were submitted for both pathology and flow cytometry and the patient tolerated the procedure well. Dose modulation, iterative reconstruction, and/or weight based adjustment of the mA/kV was utilized to reduce the radiation dose to as low as reasonably achievable. FINDINGS: 5 18 gauge core needle biopsies obtained from an enlarged left axillary lymph node, with samples submitted for both pathology and flow cytometry. IMPRESSION: Successful ultrasound guided core needle left axillary lymph node biopsy. No immediate complications. [employer] Phone: US EXTREMITY LEFT NON VASC L IMITEDOrdered By: Bert Wooten on 07-30-2019 1. Confirmation of enlarged lymph node in the left axilla with a thickened cortex. 2. In light of the abnormal uptake on PET/CT, consider needle biopsy. The findings were discussed with Dr. Wooten. [employer] Phone: EXAM: US EXTREMITY LEFT NON VASC LIMITED HISTORY: Reason for exam:->Reference PET scan 07/01/19, enlarged lymph node left axilla COMPARISON: PET/CT 07/01/2019, CT chest 06/12/2019. TECHNIQUE: Left upper extremity nonvascular ultrasound. FINDINGS: Enlarged lymph node in the left axilla 3 cm deep to the skin measuring 2.1 x 0.3 x 1.4 cm shows a thickened cortex measuring up to 7 mm in thickness and is consistent with the abnormal lymph node on PET/CT of 07/01/2019. [employer] Phone: Fidel, pn Incoming Radiant Results From reQwip/Zaask - 07/30/2019 2:09 PM EST EXAM: US EXTREMITY LEFT NON VASC LIMITED HISTORY: Reason for exam:->Reference PET scan 07/01/19, enlarged lymph node left axilla COMPARISON: PET/CT 07/01/2019, CT chest 06/12/2019. TECHNIQUE: Left upper extremity nonvascular ultrasound. FINDINGS: Enlarged lymph node in the left axilla 3 cm deep to the skin measuring 2.1 x 0.3 x 1.4 cm shows a thickened cortex measuring up to 7 mm in thickness and is consistent with the abnormal lymph node on PET/CT of 07/01/2019. IMPRESSION: 1. Confirmation of enlarged lymph node in the left axilla with a thickened cortex. 2. In light of the abnormal uptake on PET/CT, consider needle biopsy. The findings were discussed with Dr. Wooten. [employer] Phone: PET CT SKULL BASE TO MID THI GHOrdered By: Devendra Carr on 07-01-2019 Metabolically active enlarged left axillary lymph node measuring 1.5 x 1.0 cm. Recommend tissue sampling. Non-metabolically active right middle lobe 1 cm pulmonary nodule consistent with pulmonary hamartoma. Fatty liver. [employer] Phone: NUCLEAR MEDICINE PET/CT HISTORY: Testicular carcinoma. Solitary pulmonary nodule. COMPARISON: CT chest 06/12/2019. METHOD: Following IV injection of 12.46 mCi of F-18 FDG, PET tumor imaging was acquired from above the vertex of the skull to the mid thighs. Computer tomography was for the sole purposes of attenuation correction and anatomic localization. The glucose level equals 86 mg/dL. FINDINGS: HEAD AND NECK: There are no metabolically active lymph nodes in the neck. CHEST: There are no metabolically active mediastinal or hilar lymph nodes. There is a stable left axillary enlarged 1.5 x 1.0 cm metabolically active lymph node with a maximum SUV of 2.4. The major airways are patent. There is no pericardial effusion. There is no evidence of abnormal metabolic uptake in the esophagus. There is a non-metabolically active right middle lobe pulmonary nodule measuring 1 cm with internal fat components. There is no evidence of abnormal metabolic uptake in the lung parenchyma. There are no pleural effusions. There is no pneumothorax. ABDOMEN AND PELVIS: There is no evidence of abnormal metabolic activity in the liver or adrenal glands. There is no evidence of abnormal metabolic activity active lymph nodes in the abdomen or pelvis. There is no free fluid. There is physiologic uptake in the urinary system and bowel. The liver is fatty. MUSCULOSKELETAL: There is no evidence of abnormal metabolically active bony lesions. [employer] Phone: Fidel, [facility] Incoming Radiant Results From reQwip/Zaask - 07/01/2019 7:09 PM EST NUCLEAR MEDICINE PET/CT HISTORY: Testicular carcinoma. Solitary pulmonary nodule. COMPARISON: CT chest 06/12/2019. METHOD: Following IV injection of 12.46 mCi of F-18 FDG, PET tumor imaging was acquired from above the vertex of the skull to the mid thighs. Computer tomography was for the sole purposes of attenuation correction and anatomic localization. The glucose level equals 86 mg/dL. FINDINGS: HEAD AND NECK: There are no metabolically active lymph nodes in the neck. CHEST: There are no metabolically active mediastinal or hilar lymph nodes. There is a stable left axillary enlarged 1.5 x 1.0 cm metabolically active lymph node with a maximum SUV of 2.4. The major airways are patent. There is no pericardial effusion. There is no evidence of abnormal metabolic uptake in the esophagus. There is a non-metabolically active right middle lobe pulmonary nodule measuring 1 cm with internal fat components. There is no evidence of abnormal metabolic uptake in the lung parenchyma. There are no pleural effusions. There is no pneumothorax. ABDOMEN AND PELVIS: There is no evidence of abnormal metabolic activity in the liver or adrenal glands. There is no evidence of abnormal metabolic activity active lymph nodes in the abdomen or pelvis. There is no free fluid. There is physiologic uptake in the urinary system and bowel. The liver is fatty. MUSCULOSKELETAL: There is no evidence of abnormal metabolically active bony lesions. IMPRESSION: Metabolically active enlarged left axillary lymph node measuring 1.5 x 1.0 cm. Recommend tissue sampling. Non-metabolically active right middle lobe 1 cm pulmonary nodule consistent with pulmonary hamartoma. Fatty liver. [employer] Phone: CT CHEST WO CONTRASTon 06-12 Indeterminant noncalcified pulmonary nodule in the lateral segment of the right middle lobe measuring 1 cm in size. This could be further evaluated with PET/CT or tissue sampling. Please note, a CT-guided biopsy may be technically challenging given its location to the nearby minor fissure and pulmonary vessels. At the very least, a follow-up CT in 3 months should be performed. Lastly, comparison imaging to document stability would be helpful, if available. Prominent left axillary lymph node of unknown clinical significance. Attention on follow-up imaging is recommended. No mediastinal lymphadenopathy. Hepatic steatosis. Small hiatal hernia. Distal esophageal wall thickening which could relate to incomplete distention or esophagitis. [place], [place] EXAMINATION: CT CHES T WO CONTRAST HISTORY: History of pulmonary nodule. Patient has a history of testicular cancer and is a nonsmoker. COMPARISON: Comparison study was not available at time of interpretation. TECHNIQUE: CT examination of the chest without IV contrast. Coronal and sagittal reformations were performed. Dose reduction techniques were achieved by using automated exposure control and/or adjustment of mA and/or kV according to patient size and/or use of iterative reconstruction technique. FINDINGS: The imaged thyroid appears homogenous. There is a left axillary lymph node measuring 1.1 cm in short axis. No supraclavicular, mediastinal or hilar lymphadenopathy is identified utilizing CT size criteria. The thoracic aorta is normal in caliber. The pulmonary trunk is unremarkable. The heart is normal in size without pericardial effusion. Coronary artery calcifications are present. The central airways are patent. Dilation of the lung parenchyma is motion degraded particularly in the middle third of the lungs and at the level of the subsequently mentioned pulmonary nodule. Within the lateral segment of the right middle lobe there is a noncalcified pulmonary nodule measuring approximately 1.0 x 1.0 x 0.9 cm. It is closely opposed to the minor fissure and close proximity to nearby pulmonary vasculature. No focal consolidation, pleural effusion or pneumothorax is identified. There is diffuse hepatic steatosis, as visualized. A small hiatal hernia is present. The remainder of the imaged upper abdomen appears unremarkable, as visualized. Gynecomastia is suspected bilaterally. The imaged osseous structures are intact without acute abnormality. No suspicious lytic or blastic lesion is identified. Multilevel endplate spurring is noted throughout the thoracic spine. [place], [place] Fidel, pn Incoming Radiant Results From reQwip/Zaask - 06/12/2019 4:49 PM EST EXAMINATION: CT CHEST WO CONTRAST HISTORY: History of pulmonary nodule. Patient has a history of testicular cancer and is a nonsmoker. COMPARISON: Comparison study was not available at time of interpretation. TECHNIQUE: CT examination of the chest without IV contrast. Coronal and sagittal reformations were performed. Dose reduction techniques were achieved by using automated exposure control and/or adjustment of mA and/or kV according to patient size and/or use of iterative reconstruction technique. FINDINGS: The imaged thyroid appears homogenous. There is a left axillary lymph node measuring 1.1 cm in short axis. No supraclavicular, mediastinal or hilar lymphadenopathy is identified utilizing CT size criteria. The thoracic aorta is normal in caliber. The pulmonary trunk is unremarkable. The heart is normal in size without pericardial effusion. Coronary artery calcifications are present. The central airways are patent. Dilation of the lung parenchyma is motion degraded particularly in the middle third of the lungs and at the level of the subsequently mentioned pulmonary nodule. Within the lateral segment of the right middle lobe there is a noncalcified pulmonary nodule measuring approximately 1.0 x 1.0 x 0.9 cm. It is closely opposed to the minor fissure and close proximity to nearby pulmonary vasculature. No focal consolidation, pleural effusion or pneumothorax is identified. There is diffuse hepatic steatosis, as visualized. A small hiatal hernia is present. The remainder of the imaged upper abdomen appears unremarkable, as visualized. Gynecomastia is suspected bilaterally. The imaged osseous structures are intact without acute abnormality. No suspicious lytic or blastic lesion is identified. Multilevel endplate spurring is noted throughout the thoracic spine. IMPRESSION: Indeterminant noncalcified pulmonary nodule in the lateral segment of the right middle lobe measuring 1 cm in size. This could be further evaluated with PET/CT or tissue sampling. Please note, a CT-guided biopsy may be technically challenging given its location to the nearby minor fissure and pulmonary vessels. At the very least, a follow-up CT in 3 months should be performed. Lastly, comparison imaging to document stability would be helpful, if available. Prominent left axillary lymph node of unknown clinical significance. Attention on follow-up imaging is recommended. No mediastinal lymphadenopathy. Hepatic steatosis. Small hiatal hernia. Distal esophageal wall thickening which could relate to incomplete distention or esophagitis. [place], [place] Comprehensive Metabolic Pane larissa 06-06-2019 Albumin [Mass/Vol] 4.7 g/dL 3.5 - 5.2 g/dL [place], [place] Albumin/Globulin [Mass ratio] NOT REPORTED [place], [place] ALP [Catalytic activity/Vol] 67 U/L 40 - 129 U/L [place] ALT [Catalytic activity/Vol] 21 U/L 5 - 41 U/L [place] Anion gap [Moles/Vol] 12 mmol/L 9 - 17 mmol/L [place] AST [Catalytic activity/Vol] 18 U/L <40 [place] Bilirubin Ql (U) 0.45 mg/dL 0.3 - 1.2 mg/dL [place] Bun/Cre Ratio 17 [place], [place] Calcium [Mass/Vol] 10.4 mg/dL 8.6 - 10. 4 mg/dL [place] Chloride [Moles/Vol] 101 mmol/L 98 - 107 mmol/L [place] CO2 [Moles/Vol] 27 mmol/L 20 - 31 mmol/L [place] Creatinine [Mass/Vol] 0.88 mg/dL 0.7 - 1.2 mg/dL [place] GFR >60 >60 mL/min [place] GFR Non- >60 >60 mL/min [place] GFR/1.73 sq M predicted among non-blacks MDRD (S/P/Bld) [Vol rate/Area] [place], [place] Comment on above: Average GFR for 50-5 9 years old: 93 mL/min/1.73sq m Chronic Kidney Disease: <60 mL/min/1.73sq m Kidney failure: <15 mL/min/1.73sq m eGFR calculated using average adult body mass. Additional eGFR calculator available at: http://www.[employer]/multiple_crcl_2012.htm GFR/1.73 sq M predicted among non-blacks MDRD (S/P/Bld) [Vol rate/Area] NOT REPORTED [place], [place] Glucose [Mass/Vol] 109 mg/dL High 70 - 99 mg/dL [place], [place] Potassium [Moles/Vol] 4.5 mmol/L 3.7 - 5.3 mmol/L [place] Protein [Mass/Vol] 8.0 g/dL 6.4 - 8.3 g/dL [place], [place] Sodium [Moles/Vol] 140 mmol/L 135 - 144 mmol/L [place] Urea nitrogen [Mass/Vol] 15 mg/dL 6 - 20 mg/dL [place] Lipid Panelon 06-06-2019 Cholesterol [Mass/Vol] 264 mg/dL High <200 [place] Comment on above: Cholesterol Guidelines: <200 Desirable 200-240 Borderline >240 Undesirable Cholesterol in HDL [Mass/Vol] 50 mg/dL >40 [place] Comment on above: HDL Guidelines: <40 Undesirable 40-59 Borderline >59 Desirable Cholesterol in LDL [Mass/Vol] 180 mg/dL High 0 - 130 mg/dL [place] Comment on above: LDL Guidelines: <100 Desirable 100-129 Near to/above Desirable 130-159 Borderline >159 Undesirable Direct (measured) LDL and calculated LDL are not interchangeable tests. Cholesterol in VLDL [Mass/Vol] NOT REPORTED High 1 - 30 mg/dL [place] Cholesterol.total/C holesterol in HDL [Mass ratio] 5.3 {ratio} High <5 [place] Triglyceride [Mass/Vol] 168 mg/dL High <150 [place] Comment on above: Triglyceride Guidelines: <150 Desirable 150-199 Borderline 200-499 High >499 Very high Based on AHA Guidelines for fasting triglyceride, April 2012. Otheron 06-06-2019 Interpretation and review of laboratory results Abnormal [place], [place] Patient Fasting?on 9 Patient Fasting? YES [place], [place] TSH without Reflexon 019 TSH Qn 2.56 m[IU]/L [place], [place] CNOVon 12-30-2018 CNOV Office Visit (GENSAV ) AGUSTÍN LACEY ([id number]) 1965 M Date Time Provider Department 12/30/18 9:00 AM SUNNY PACHECO During your visit today, we recorded the following information about you: Referring Provider: SUNNY PACHECO [[id number]] Allergies As of Date: 12/30/2018 Noted Allergy Reaction PENICILLIN 10/17/2018 16 - Unknown Comments: As a child. Date Reviewed: 12/30/2018 Reviewed by: Sunny Pacheco - Fully Assessed Reason for Visit: Post Op [174] Cmt: Incisional hernia Primary Visit Diagnosis:Incisional hernia, without obstruction or gangrene [K43.2] Prescriptions as of 12/30/2018 Sig: CYPROHEPTADINE 4 MG TABLET TAKE 1/2 TO 1 TABLET BY MOUTH* Problem List As Of Date 12/30/2018 Noted Resolved Class 2 obesity in adult [E66.9] INVALID FOR* More... Letter Text Encounter Status:Closed by SUNNY PACHECO MD on 12/30/18 Normal [facility] PROGRESSon 12-30-2018 Protein mass conc HNO ID: [id number] Author: Sunny Pacheco Service: General Surgery Author Type: Physician Type: Progress Notes Filed: 12/30/2018 12:46 PM Note Text: [facility] [place] General Surgery Sunny Pacheco M.D., F.A.C.S. [facility] [address] [address] NAME: AGUSTÍN LACEY [facility] NO: [id number] DATE OF SERVICE: 12/30/2018 PLACE OF ENCOUNTER: Vicenta Now [id number] weeks from incisional hernia right lower quadrant from old appendectomy. He has done quite well. Abdominal wall is quite stable. No pain patterns. Returning to work without restrictions on January 15. Call or return as needed otherwise. The patient is quite pleased with the results. SUNNY PACHECO M.D. BB/102 Audio #: [id number] cc: Dr. Bernarda Delacruz Date Dictated: 12/30/2018 09:22:40 Date Typed: 12/30/2018 12:09:13 Date Revised: Normal [facility] CNOVon 12-09-2018 CNOV Office Visit (GENSAV ) AGUSTÍN LACEY ([id number]) 1965 M Date Time Provider Department 12/09/18 10:15 AM SUNNY PACHECO During your visit today, we recorded the following information about you: Referring Provider: SUNNY PACHECO [[id number]] Allergies As of Date: 12/09/2018 Noted Allergy Reaction PENICILLIN 10/17/2018 16 - Unknown Comments: As a child. Date Reviewed: 12/09/2018 Reviewed by: Sunny Pacheco - Fully Assessed Reason for Visit: Post Op [174] Cmt: Incisional hernia Primary Visit Diagnosis:Incisional hernia, without obstruction or gangrene [K43.2] Prescriptions as of 12/09/2018 Sig: CYPROHEPTADINE 4 MG TABLET TAKE 1/2 TO 1 TABLET BY MOUTH* Problem List As Of Date 12/09/2018 Noted Resolved Class 2 obesity in adult [E66.9] INVALID FOR* More... Encounter Status:Closed by SUNNY PACHECO MD on 12/09/18 Normal [facility] PROGRESSon 12-09-2018 Protein mass conc HNO ID: [id number] Author: Sunny Pacheco Service: General Surgery Author Type: Physician Type: Progress Notes Filed: 12/09/2018 4:26 PM Note Text: [facility] [place] General Surgery Sunny Pacheco M.D., F.YessicaS. Chaitanya Guerrero [facility] [address] [address] NAME: AGUSTÍN LACEY CLINIC NO: [id number] DATE OF SERVICE: 12/09/2018 PLACE OF ENCOUNTER: [facility] Doing extremely well. No pain. Thick healing ridge throughout repair, as expected. All wounds progressing nicely. No avoid heavy lifting and straining for another three weeks and to return at that time. May become more active otherwise. Continue to lose weight. SUNNY PACHECO M.D. BB/089 Audio #: [id number] Date Dictated: 12/09/2018 10:39:41 Date Typed: 12/09/2018 14:35:16 Date Revised: Normal [facility] CNOVon 11-28-2018 CNOV Office Visit (GENSAV ) AGUSTÍN LACEY ([id number]) 1965 Jose Date Time Provider Department 11/28/18 10:00 AM SUNNY PACHECO GENSAV During your visit today, we recorded the following information about you: Referring Provider: SUNNY PACHECO [[id number]] Allergies As of Date: 11/28/2018 Noted Allergy Reaction PENICILLIN 10/17/2018 16 - Unknown Comments: As a child. Date Reviewed: 11/28/2018 Reviewed by: Sunny Pacheco - Fully Assessed Reason for Visit: Post Op [174] Cmt: Incisional hernia Primary Visit Diagnosis:Incisional hernia, without obstruction or gangrene [K43.2] Prescriptions as of 11/28/2018 Sig: HYDROCODONE 5 MG-ACETAMINOPHE* Take 1 tablet by mouth every * Patient not taking: Reported on 11/28/2018 CYPROHEPTADINE 4 MG TABLET TAKE 1/2 TO 1 TABLET BY MOUTH* Problem List As Of Date 11/28/2018 Noted Resolved Class 2 obesity in adult [E66.9] INVALID FOR* More... Encounter Status:Closed by SUNNY PACHECO MD on 11/28/18 Normal [facility] PROGRESSon 11-28-2018 Protein mass conc HNO ID: [id number] Author: Sunny Pacheco Service: General Surgery Author Type: Physician Type: Progress Notes Filed: 11/30/2018 8:15 AM Note Text: [facility] [place] General Surgery Sunny Pacheco M.D., F.A.C.S. Chaitanya Guerrero [facility] [address] [id number] NAME: AGUSTÍN LACEY CLINIC NO: [id number] DATE OF SERVICE: 11/28/2018 PLACE OF ENCOUNTER: [facility] One week status post repair of complex large right lower quadrant iliac fossa hernia with primary closure and bridging technique with intra-abdominal mesh. Minimal drainage, 15 mL total the last two days. This is serosanguineous. Removed without difficulty. All wounds progressing well and jony are removed. Tolerating a regular diet. Very little pain, not taking any narcotics. Avoid heavy lifting and straining. Continue wearing the binder. Return in 10-14 days, sooner p.r.n. SUNNY PACHECO M.D. 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 No Advance Directive: Current Advance Directive: None Fashion Consultant Selling Attempted to Assist with AD Completion: Yes Action: Education Provided Health Literacy: 1. How often do you need to have someone help you when you read instructions, pamphlets, or other written material from your doctor or pharmacy? Never - 1 2. How confident are you filling out medical forms by yourself? Extremely - 1 If Patient scores > 3 on either question, the following interventions were put into place: Patient did not score > 3 FUNCTIONAL AND COGNITIVE/BEHAVIORAL PRIOR TO ADMISSION: Baseline Mental Status: Alert AND Oriented, Person, Place , Time and Situation Functional Status: Independent Does Patient Currently Receive Any Community Services or Home Care? None Equipment Prior to Admission: None Has the Patient Been in a Prison Facility in the Past 30 days? No SOCIAL: Living Arrangement: Home Lives With: Spouse Financial Resources: Employed: Primary Contact: Extended Emergency Contact Information Primary Emergency Contact: Kathy Lacey Mobile Relation: Spouse Supportive: Yes Other Important Patient Contacts: None Caregiver Assessment: Caregiver is ready, willing and able to meet the patient's needs as recommended by the inter-professional team? No Caregiver Needed Patient's transition needs and plan for meeting these needs: physician follow up Does the patient have an acute stroke diagnosis, or has the patient had a stroke during this admission? No Medicaiton Adherence: Patient is unable to complete at this time due to patient does not take any home medications. Are you interested in bedside delivery of your medications? No Food Concerns: In the Last Month, Have You had Trouble Getting Food? No trouble getting food During the Last Month, Have You Worried Whether Your Food Would Run Out Before You Had Enough Money to Buy More? No Is the Patient Psychosocially Complex? No ASSESSMENT AND PLAN: Medical Needs: None Psychosocial Needs: None FREEDOM OF CHOICE EXPLAINED: N/A POTENTIAL TRANSITION PLANS No Services Indicated Pt from home and independent. Anticipate home no needs. SIGNATURE: Jena Valdez RN PATIENT NAME: Agustín Lacey DATE: November 22, 2018 TIME: 12:37 PM PAGER/CONTACT #: [phone] [facility] PROGRESSon 11-22-2018 Protein mass conc HNO ID: [id number] Author: Randall Jones Jr. Service: General Surgery Author Type: Physician Type: Progress Notes Filed: 11/22/2018 6:38 AM Note Text: Brief Note Doing well, pain well controlled. Hasn't gotten up out of bed. EXAM: abd soft, abdominal binder in place IMPRESSION: s/p lap incisional hernia PLAN: advance activities, possible home this afternoon. [facility] ANES Tricia 11-21-2018 ANES POST HNO ID: [id number] Author: Little Rose Service: Anesthesiology Author Type: Physician Type: Anesthesia PostOp Filed: 11/21/2018 7:36 PM Note Text: POST ANESTHESIA EVALUATION NOTE SERVICE DATE: 11/21/2018 SERVICE TIME: 1936 : 1965 Vitals: 11/21/18 1156 11/21/18 16511/21/181835 Temp: 36.3 ?C (97.3 ?F) 36.1 ?C (97 ?F) 36.4 ?C (97.5 ?F) 11/21/18174411/21/18179911/21/18181411/21/181835 BP: 119/67 111/66 124/79 120/70 11/21/18174411/21/18179911/21/18181411/21/181835 Pulse: 71 70 73 72 11/21/18174411/21/18179911/21/18181411/21/181835 Resp: 16 16 16 16 11/21/18174411/21/18179911/21/18181411/21/181835 SpO2: 98% 95% 98% 97% Validated Vital Signs: Yes POST ANES STATUS: No apparent anesthetic complications. The patient is appropriately hydrated with stable respiratory and cardiovascular status. Patient has safe and adequate airway control. The patient has appropriate pain relief and no significant post operative nausea or vomiting. The patient has achieved baseline mental status. Intra-Operative Events: No Significant Anesthesia Events Further assessment by Anesthesia Service: None Other Remarks: SIGNATURE: Little Rose MD PATIENT NAME: Agustín Lacey DATE: November 21, 2018 TIME: 7:36 PM PAGER/CONTACT #: [facility] ANES PREOPon 11-21-2018 ANES PREOP HNO ID: [id number] Author: Little Rose Service: Anesthesiology Author Type: Physician Type: Anesthesia PreOp Filed: 11/21/2018 12:31 PM Note Text: ANESTHESIOLOGY DAY OF SURGERY NOTE SERVICE DATE: 11/21/2018 SERVICE TIME: 9 : 1965 Procedure(s) (LRB): LAPAROSCOPIC REPAIR HERNIA REDUCIBLE INCISIONAL W/MESH (N/A) HERNIORRHAPHY INCISIONAL ABDOMINAL ADULT INITIAL REDUCIBLE (N/A) Surgeon(s): Sunny Pacheco Estimated body mass index is 38.77 kg/m? as calculated from the following: Height as of this encounter: 172.7 cm (5' 8 ). Weight as of this encounter: 115.7 kg (255 lb). Most recent hematocrit and potassium results: Hematocrit 45.5 10/30/2018 Potassium 4.3 10/30/2018 ANES DOS/PREOP NOTE: Vitals: 11/21/18 1156 BP: 135/79 Pulse: 76 Resp: 16 Temp: 36.3 ?C (97.3 ?F) TempSrc: Temporal SpO2: 99% Weight: 115.7 kg (255 lb) Height: 172.7 cm (5' 8 ) ACTIVE PROBLEM LIST Class 2 Obesity in Adult PAST MEDICAL HISTORY Diagnosis Date - Incisional hernia - Obesity - Testicular cancer (HCC) 2014 Radiation tx PAST SURGICAL HISTORY Procedure Laterality Date - APPENDECTOMY open ruptured - REMOVAL TESTIS,SIMPLE Left 2014 Orchiectomy FAMILY HISTORY Problem Relation Age of Onset - Heart Father Social History: Social History Tobacco Use - Smoking status: Never Smoker - Smokeless tobacco: Never Used Substance Use Topics - Alcohol use: Not Currently Frequency: Never - Drug use: Not Currently Comment: denies tx for drug/alcohol abuse in the past. No current facility-administered medications on file prior to encounter. Current Outpatient Medications on File Prior to Encounter: cyproheptadine (PERIACTIN) 4 mg tablet TAKE 1/2 TO 1 TABLET BY MOUTH THREE TIMES DAILY NEEDED FOR ITCHING Current Facility-Administered Medications: lactated ringers infusion 5-30 mL/hr INTRAVENOUS CONTINUOUS Sunny Pacheco Last Rate: 30 mL/hr at 11/21/18 1224 30 mL/hr at 11/21/18 1224 clindamycin iv piggyback 900 mg in D5W 50 mL (CLEOCIN) 900 mg INTRAVENOUS Pre-Op Once Sunny Pacheco Allergies: ALLERGIES Allergen Reactions - Penicillin Unknown As a child. DOS EXAM: Adequate NPO Status: Yes Anesthetic Risks, Benefits, Alternatives, Personnel and Consent Discussed: Yes Patient agrees to proceed: Yes Previous Anesthesia: No history of adverse event Airway Assessment: MP 2; Neck ROM: Full ROM without neurologic symptoms; Airway Evaluation: Thick neck Symptoms of Sleep Apnea: Snoring, BMI > 35, Age over 50 (53 year old), Neck circumference > 15.75 inches and Male gender Dentition: Teeth intact Additional Physical Exam: Lungs: Patient health status unchanged since recent history and physical. See history and physical for exam findings. Cardiac: Patient health status unchanged since recent history and physical. See history and physical for exam findings. Additional Pertinent Findings: N/A Blood Products: Not anticipated for this procedure Anesthetic Plan: General Anesthetic Monitoring: Standard ASA Monitors Pain Management Plan: Parenteral or Oral ASA Class: 3 Other Medical Problems: None Chronic Beta Toñito medication administered within 24 hours: N/A I have interviewed and examined the patient. I have reviewed the medical record and/or the pre-anesthesia evaluation, pertinent labs, and test results. Significant changes in the patient's condition since the History and Physical, not otherwise documented in primary service progress notes: No This contains updated information obtained within 48 hours of Surgery/Procedure. SIGNATURE: Little Rose MD PATIENT NAME: Agustín Lacey DATE: November 21, 2018 TIME: 12:29 PM CSN: [id number] Normal [facility] OPERATIVE NOon 11-21-2018 OPERATIVE NO HNO ID: [id number] Author: Sunny Pacheco Service: General Surgery Author Type: Physician Type: Operative Report Filed: 11/24/2018 9:16 AM Note Text: [facility] - Operative Report AGUSTÍN LACEY : 1965 AGE: 53. SEX: M PATIENT TYPE: A HOSP [facility] [place] [facility] [place] [facility] LOCATION: [facility] ATTENDING PHYSICIAN: Sunny Pacheco M.D. CSN NUMBER: [id number] DATE OF SURGERY/PROCEDURE: 11/21/2018 INCISION/PROCEDURE START TIME: 2:04 PM INCISION CLOSE/PROCEDURE END TIME: 4:40 PM PREOPERATIVE DIAGNOSIS: Incisional hernia; right lower quadrant, status post remote open appendectomy. POSTOPERATIVE DIAGNOSIS: Incisional hernia; right lower quadrant, status post remote open appendectomy. SURGEON: Sunny Pacheco M.D. BOBBIN HANDLER: Stella CORCORAN SURGERY/PROCEDURE: Laparoscopic and open repair of incisional hernia, right lower quadrant abdominal with implantation of 20 x 15 parietene DS mesh. ANESTHESIA: General BLEEDING: None. DRAINS: JOSE 19 x1, subcutaneous space. COMPLICATIONS: None. FINDINGS: The patient had a 10 cm defect with a large amount of small bowel and omentum present within a multiloculated hernia sac. DESCRIPTION OF PROCEDURE: With the patient under adequate general anesthesia, the entire abdomen widely prepped and draped with ChloraPrep, Ioban drape in a sterile manner. Audible time-out was completed with all team members. Beginning laparoscopically in the left upper quadrant, an Optiview 5 mm port was inserted under direct vision easily without difficulty. Pneumoperitoneum was well established. Additional 5 mm trocars were subsequently inserted as needed in the left lower quadrant, right upper quadrant and superior midline. He had a Huang catheter inserted preoperatively. Through these 4 ports, dissection was commenced primarily with sharp cold dissection and as needed Harmonic Scalpel of omentum. Great care was given in protection of very densely adherent small bowel to the mid abdominal wall and cecum in the right lower quadrant and in the hernia, this area was later inspected again through the open technique as well and again laparoscopically at conclusion of procedure, no enterotomies or serosal tears had occurred. After freeing up all the soft tissue from the hernia defect, the estimated size of mesh was made, but not yet chosen. He had a McBurney's long incision in the right lower quadrant laterally, which was excised full-thickness for better cosmetic appearance along with a large amount of subcutaneous fat scar in hernia sac. Antibacterial solution was liberally used throughout the case. The fascia was intact and I was able to plicate this with simple interrupted #0 PDS sutures. After the mesh had been chosen and oriented correctly, vertical mattresses in the 4 cardinal locations of this rectangular piece placed, this was placed in the abdominal cavity, oriented correctly after immersed in antibacterial solution. Before handling the mesh, surgical gloves were changed. The device was used to help close the fascia, this was removed. Sponge, needle and instrument counts were correct x2 after the fascia was completed. Before the fascia was completely closed, hemostasis was assured in the subcutaneous space. A JOSE 19 was brought out through inferior stab wound in the right lower quadrant and sewn in position with nylon. The Kat's and deep dermis reapproximated with 3-0 Vicryl and the skin closed with jony along the right lower quadrant incision. Laparoscopically again with pneumoperitoneum recreated, the mesh was oriented correctly and brought out through the abdominal wall, this paralleled and mirrored the right lower quadrant oblique incision. The lateral sutures were brought through 1st and it was noted that the mesh was slightly too low, these were removed and the mesh withdrawn back and taken through additional small stab wounds about 2 cm above the lateral initial site was chosen. These were the cardinal transfascial suture locations corresponding to replace opposite this on the other side of the repair and brought through the abdominal wall nicely. The mesh layed out nicely and overlapped the hernia repair in all directions by at least 5 cm. A ProTacker was used securely in all directions assuring that there were no open lips of exposed mesh. The mesh was oriented before placement, after placement and again laparoscopically before securing with the cardinal transfascial fixation sutures and ProTacker. Reinspected the abdominal cavity. There was no bleeding. There was no succus or any evidence of visceral injury. Pneumoperitoneum was evacuated and the trocar sites were removed. Marcaine with epinephrine had been infiltrated for postop pain control before removing the trocars. The pneumoperitoneum was evacuated and the trocars were removed. He was extubated in the operating room and transferred to recovery room in stable condition. As the operating surgeon, I was present throughout the entire procedure. esl instructional assistant, DELMI Douglas was responsible for exposure, retraction, and assistance with wound closure and camera operation. Sunny Pacheco M.D. BB:[id number] /[id number] Normal [facility] SURGICAL PATHOLOGYon -10-2 019 SURGICAL PATHOLOGY Specimen originated from [facility] Specimen #: [id number] Submitting Physician: SUNNY PACHECO FINAL DIAGNOSIS Soft tissue, abdominal, herniorrhaphy - Hernia sac and scar. RANDY/IRMA/vincent 11/26/2018 Bran Huerta M.D. (Electronic Signature) _ SPECIMEN SUBMITTED A: ABDOMINAL INCISION SCAR AND HERNIA SAC CLINICAL DATA Incisional hernia [K43.2] GROSS DESCRIPTION A. Received in formalin designated abdominal incisional scar and hernia is an elliptical-shaped segment of skin with attached fibrofatty tissue measuring 13.8 x 1.3 cm, excised to a depth of 8 cm. The skin surface is magana and wrinkled. On the opposing surface to the skin is adherent membranous tissue measuring 3 x 1.5 cm. Sectioning and palpation does not reveal any areas of induration or nodularity. Electrician Control Equipment sections are submitted as follows: A1 skin, A2 membranous tissue. Gross examination performed at [facility], [address] [place] [address] BF/lbk 11/24/2018 Date of Report: 11/26/2018 Date of Procedure: 11/21/2018 Date of Receipt: 11/21/2018 Submitted by: SUNNY PACHECO Location: AV5E Diagnostic interpretation performed at [place] [address]. CLIA Number: [id number] [facility] Comment on above: Performed By: #### S #### See report for performing lab information. NURSING PROGon 11-14-2018 Protein mass conc HNO ID: [id number] Author: Chey HernandezRn) HERLINDA Silva Service: Anesthesiology Author Type: Registered Nurse Type: Nursing Progress Note Filed: 11/14/2018 1:27 PM Note Text: PACC Nurse Progress Note History AND Physical: PACC Visit Date: 10/30/2018 Labs Within Last 6 Months: CBC: Date 10/30/2018 BMP/CMP: Date 10/30/2018 Labs in [facility] and within acceptable anesthesia guidelines Imaging Within Last 12 Months: CT Scan abd/pel Date 10/30/2018 Cardiac Testing: N/A Last Menstrual Period: LMP Date: N/A Postmenopausal >1yr: N/A, S/P Hysterectomy: N/A BMI Percentile (PEDS): N/A Risk Assessment: N/A Anesthesia Review: N/A Narrative: N/A Pre-op Considerations: Class 2 obesity in adult Assessment: Body mass index is 38.77 kg/m?. Chart Check: COMPLETED Chey Silva RN November 14, 2018 12:02 PM [facility] CBC and Differentialon 10-30 Abs Baso 0.10 k/uL Normal <0.11 [facility] Comment on above: Performed By: #### C BCDIF, CMP #### [place] [id number] [place] [phone] Abs [place] 0.61 k/uL Normal <0.87 [facility] Comment on above: Performed By: #### C BCDIF, CMP #### [place] [address] [place] [phone] Abs Neut 5.19 k/uL Normal 1.45-7.50 [facility] Comment on above: Performed By: #### C BCDIF, CMP #### [place] [phone] Absolute nRBC <0.01 Normal <0.01 [facility] Comment on above: Performed By: #### C BCDIF, CMP #### [place] [phone] Basophils/100 WBC (Bld) 1.3 % Normal [facility] Comment on above: Performed By: #### C BCDIF, CMP #### [place] [phone] DTYPE Auto Diff Normal [facility] Comment on above: Performed By: #### C BCDIF, CMP #### [phone] Eosinophils #/vol (Bld) 0.21 10*3/uL Normal <0.46 [facility] Comment on above: Performed By: #### C BCDIF, CMP #### [place] [phone] Eosinophils/100 WBC (Bld) 2.7 % Normal [facility] Comment on above: Performed By: #### C BCDIF, CMP #### [place] [phone] Erythrocyte distribution width Ratio (RBC) 13.2 % Normal 11.5-15.0 [facility] Comment on above: Performed By: #### C BCDIF, CMP #### [place] [address] Hematocrit Volume Fraction (Bld) 45.5 % Normal 39.0-51.0 [facility] Comment on above: Performed By: #### C BCDIF, CMP #### [place] [address] Hemoglobin mass conc (Bld) 15.1 g/dL Normal 13.0-17.0 [facility] Comment on above: Performed By: #### C BCDIF, CMP #### [place] [address] Lymphocytes #/vol (Bld) 1.77 10*3/uL Normal 1.00-4.00 [facility] Comment on above: Performed By: #### C BCDIF, CMP #### [place] [address] Lymphocytes/100 WBC (Bld) 22.5 % Normal [facility] Comment on above: Performed By: #### C BCDIF, CMP #### [place] [address] MCH Entitic mass (RBC) 29.6 pG Normal 26.0-34.0 [facility] Comment on above: Performed By: #### C BCDIF, CMP #### [place] [address] MCHC mass conc (RBC) 33.2 g/dL Normal 30.5-36.0 [facility] Comment on above: Performed By: #### C BCDIF, CMP #### [place] [address] MCV Entitic volume (RBC) 89.2 fL Normal 80.0-100.0 [facility] Comment on above: Performed By: #### C BCDIF, CMP #### [place] [id number] [place] [address] Monocytes/100 WBC (Bld) 7.7 % Normal [facility] Comment on above: Performed By: #### C BCDIF, CMP #### [place] [address] Neutrophils/100 WBC (Bld) 65.8 % Normal [facility] Comment on above: Performed By: #### C BCDIF, CMP #### [place] [phone] NRBCs 0.0 /100 WBC Normal 0 [facility] Comment on above: Performed By: #### C BCDIF, CMP #### [place] [phone] Platelet mean volume Entitic volume (Bld) 9.9 fL Normal 9.0-12.7 [facility] Comment on above: Performed By: #### C BCDIF, CMP #### [place] [address] Platelets #/vol (Bld) 241 10*3/uL Normal 150-400 [facility] Comment on above: Performed By: #### C BCDIF, CMP #### [place] [address] RBC #/vol (Bld) 5.10 10*6/uL Normal 4.20-6.00 [facility] Comment on above: Performed By: #### C BCDIF, CMP #### [place] [address] WBC #/vol (Bld) 7.88 10*3/uL Normal 3.70-11.00 [facility] Comment on above: Performed By: #### C BCDIF, CMP #### [facility] [address] [place], [place] [address] CT ABD/PEL W IVCONon 019 CT ABD/PEL W IVCON * * *Final Report* * * DATE OF EXAM: Oct 30 2018 3:15PM [facility] 0530 - CT ABD/PEL W IVCON / PROCEDURE REASON: Incisional hernia, without obstruction or gangrene * * * * Physician Interpretation * * * * RESULT: EXAMINATION: CT ABDOMEN AND PELVIS WITH IV CONTRAST CLINICAL HISTORY: Incisional hernia. TECHNIQUE: CT of the abdomen and pelvis was performed using standard technique, scanning from just above the dome of the diaphragm to the symphysis pubis. MQ: CTAP_3 Contrast: IV: 150 ml of Omnipaque 300 Oral: 900 ml of 50ML Omnipaque [address] Radiation dose: Integrated Dose-length product (DLP) for this visit = 1069 mGy*cm. CT Dose Reduction Employed: Automated exposure control (AEC) COMPARISON: None. RESULT: Liver: Mild fatty filtration is noted. No discrete hepatic lesion is appreciated. Biliary Tract: No bile duct dilation. No mass. Spleen: No splenomegaly. No mass. Pancreas: No mass or ductal dilatation. Adrenal glands: No mass. Kidneys: No enhancing mass or hydronephrosis. Lymph nodes: Mildly prominent portacaval lymph node measures 2.8 x 1.3 cm. A mildly prominent low-attenuation lymph node is noted within the periportal region measuring 1.3 x 1.0 cm, image 43, series 2. Additional, subcentimeter central mesenteric lymph nodes are identified. No substantial pelvic lymphadenopathy is identified. GI Tract: No bowel wall thickening or dilation. Mesentery: No ascites. No mass. Retroperitoneum: No mass. Vasculature: The celiac axis and SMA are patent. The portal vein and branches, splenic vein, SMV, and hepatic veins are patent. Arterial atherosclerotic disease, the abdominal aorta and common iliac arteries are normal in caliber. Pelvis: No free fluid or pelvic mass. Fat-containing left inguinal hernia is noted. Bones/Soft Tissues: Mild degenerative change within the lumbar spine is noted. No osseous destructive process is appreciated. Right lateral abdominal wall hernia, containing mesenteric fat, as well as a portion of the ascending colon and loops of nonobstructed small bowel are appreciated. Lower Thorax: 9 mm right middle lobe nodule is incompletely imaged, image 1, series 2. Further workup with dedicated CT examination of the chest is recommended. IMPRESSION: 1. 9 MM INCOMPLETELY IMAGED, PULMONARY NODULE IS NOTED WITHIN THE RIGHT MIDDLE LOBE, ABOVE. THE POSSIBILITY OF UNDERLYING NEOPLASM CANNOT BE EXCLUDED. FURTHER WORKUP WITH DEDICATED CT EXAMINATION OF THE CHEST IS RECOMMENDED. 2. Several mildly prominent periportal and portacaval lymph nodes are identified, as above. Suggest correlation with a follow-up examination in 6 months to assess for stability. 3. Right lateral abdominal wall hernia, containing loops of nonobstructed small and large bowel, as above. COMMUNICATION: Communicated via telephone with: Dr. Pacheco's office staff Nel on 10/31/2018 at 10:55. Transcribe Date/Time: Oct 31 2018 10:43A Dictated by: LYNETTE SALAZAR MD This examination was interpreted and the report reviewed and electronically signed by: LYNETTE SALAZAR MD on Oct 31 2018 10:59AM EST Thank you for allowing us to participate in the care of your patient. Should there be any questions regarding this interpretation, please call [phone]. If you are unable to reach us at the number above, please feel free to contact [facility] at [phone]. [id number] Normal [facility] Comp Metabolic Panelon 10-30 Albumin mass conc 4.5 g/dL Normal 3.9-4.9 [facility] Comment on above: Performed By: #### C BCDIF, CMP #### [facility] [employer] [address] [place], [place] [address] ALP enzyme act/vol 54 U/L Normal 38-[address] [facility] Comment on above: Performed By: #### C BCDIF, CMP #### [facility] [employer] [address] [place], [place] [address] ALT enzyme act/vol 29 U/L Normal 10-[address] [facility] Comment on above: Performed By: #### C BCDIF, CMP #### [facility] [employer] [address] [place] [phone] Anion gap molar conc 13 mmol/L Normal 9-18 [facility] Comment on above: Performed By: #### C BCDIF, CMP #### [place] [id number] [place] [phone] AST enzyme act/vol 29 U/L Normal 14-[address] [facility] Comment on above: Performed By: #### C BCDIF, CMP #### [place] [id number] [place] [phone] Bilirubin mass conc 0.5 mg/dL Normal 0.2-1.3 [facility] Comment on above: Performed By: #### C BCDIF, CMP #### [place] [phone] Calcium mass conc 9.4 mg/dL Normal 8.5-10.2 [facility] Comment on above: Performed By: #### C BCDIF, CMP #### [place] [id number] [place] [phone] Chloride molar conc 100 mmol/L Normal 97-105 [facility] Comment on above: Performed By: #### C BCDIF, CMP #### [place] [phone] CO2 molar conc 27 mmol/L Normal 22-30 [facility] Comment on above: Performed By: #### C BCDIF, CMP #### [place] [id number] [place] [phone] Creatinine mass conc 0.89 mg/dL Normal 0.73-1.22 [facility] Comment on above: Performed By: #### C BCDIF, CMP #### [place] [id number] [place] [phone] eGFR- Amer. >[address] [facility] Comment on above: Performed By: #### C BCDIF, CMP #### [place] [address] [place], [place] [address] GFR/1.73 sq M predicted among non-blacks MDRD vol rate/area (S/P/Bld) mL/min/{1.73_m2} Normal [facility] Comment on above: Result Comment: eGFR (Estimated GFR) Units of measure: mL/min/1.73 meters squared eGFR is derived from the reexpressed MDRD Study equation using the following parameters: serum creatinine, age, gender and race. The creatinine assay has been calibrated to be traceable to IDMS. An eGFR <60 mL/min/1.73m2 for >3 months is consistent with chronic kidney disease. Refer to KDOQI guidelines for clinical interpretation. In patients with unstable renal function, e.g. those with acute kidney injury, the eGFR may not accurately reflect actual GFR. Performed By: #### C REGIS, CMP #### [facility] [employer] [address] [place] [address] Glucose mass conc 75 mg/dL Normal 74-99 [facility] Comment on above: Result Comment: The [place] Diabetes Association (ADA) provides guidance for cutoff values for fasting glucose and random glucose. The ADA defines fasting as no caloric intake for at least 8 hours. Fasting plasma glucose results between 100 to 125 mg/dL indicate increased risk for diabetes (prediabetes). Fasting plasma glucose results greater than or equal to 126 mg/dL meet the criteria for diagnosis of diabetes. In the absence of unequivocal hyperglycemia, results should be confirmed by repeat testing. In a patient with classic symptoms of hyperglycemia or hyperglycemic crisis, random plasma glucose results greater than or equal to 200 mg/dL meet the criteria for diagnosis of diabetes. Reference: Standards of Medical Care in Diabetes 2016, [place] Diabetes Association. Diabetes Care. 2016.39(Suppl 1). Performed By: #### C REGIS, CMP #### [facility] [employer] [address] [place], [place] [address] Potassium molar conc 4.3 mmol/L Normal 3.7-5.1 [facility] Comment on above: Performed By: #### C REGIS, CMP #### [facility] [employer] [address], [place] [id number] Protein mass conc 7.5 g/dL Normal 6.3-8.0 [facility] Comment on above: Performed By: #### C BCDIF, CMP #### [facility] [address] [place], [place] [phone] Sodium molar conc 140 mmol/L Normal 136-144 [facility] Comment on above: Performed By: #### C BCDIF, CMP #### [facility] [address] [place], [place] [address] Urea nitrogen mass conc 12 mg/dL Normal 9-24 [facility] Comment on above: Performed By: #### C BCDIF, CMP #### [facility] [address] [place], [place] [address] HISTORY PHYSICALon HISTORY PHYSICAL HNO ID: [id number] Author: Khadijah Skaggs Service: ? Author Type: Nurse Practitioner Type: HANDP Filed: 10/31/2018 6:37 AM Note Text: HISTORY AND PHYSICAL EXAMINATION SERVICE DATE: 10/30/2018 SERVICE TIME: 12:51 PM PRIMARY CARE PHYSICIAN: Devendra Carr MD REASON FOR VISIT: Agustín Lacey is a 53 year old male who is scheduled for PAT at the request of Dr. Sunny Pacheco for consultation. My final recommendation will be communicated back to the requesting physician by way of shared medical record or letter. The patient has the following: There is no problem list on file for this patient. Subjective CHIEF COMPLAINT: Incisional hernia HPI: 53 yr old male with incisional hernia scheduled for repair -08/24 discomfort , pressure states since appendectomy and getting bigger Normal stool, takes nothing for pain No fever chills or nausea PAST MEDICAL HISTORY Diagnosis Date - Incisional hernia - Obesity - Testicular cancer (HCC) 2014 Radiation tx PAST SURGICAL HISTORY Procedure Laterality Date - APPENDECTOMY -2018 open ruptured - REMOVAL TESTIS,SIMPLE Left 2014 Orchiectomy FAMILY HISTORY Problem Relation Age of Onset - Heart Father SOCIAL HISTORY: Social History Socioeconomic History Marital status: Spouse name: Not on file Number of children: Not on file Years of education: Not on file Highest education level: Not on file Social Needs Financial resource strain: Not on file Food insecurity - worry: Not on file Food insecurity - inability: Not on file Transportation needs - medical: Not on file Transportation needs - non-medical: Not on file Occupational History Not on file Tobacco Use Smoking status: Never Smoker Smokeless tobacco: Never Used Substance and Sexual Activity Alcohol use: Not Currently Frequency: Never Drug use: Not Currently Comment: denies tx for drug/alcohol abuse in the past. Sexual activity: Not on file Other Topics Concerns: Not on file Social History Narrative Not on file MEDICATIONS: Prior to Admission medications as of 10/30/18 1302 Medication Sig Last Dose Taking cyproheptadine (PERIACTIN) 4 mg tablet TAKE 1/2 TO 1 TABLET BY MOUTH THREE TIMES DAILY NEEDED FOR ITCHING Yes No medication comments found. CURRENT ALLERGIES: ALLERGIES Allergen Reactions - Penicillin Unknown As a child. REVIEW OF SYSTEMS: PAIN ASSESSMENT: General: No weight loss, malaise or fevers. Neuro: No history of TIA's, stroke, MESMERIST tumor, impaired sensorium, hemiplegia, paraplegia or quadraplegia. No neurological symptoms or problems. Respiratory: No history of current cough or dyspnea, or pneumonia in the past 6 weeks. No history of respiratory/pulmonary symptoms or problems. Cardiovascular: No history of HTN requiring medication, no history of angina, CHF, AK, cardiac surgery or stents. Denies rest pain, gangrene or revascularization/ampu tation for PVD. No history of cardiovascular symptoms or problems. GI: See HPI : periactin daily, hx of testicular cancer Endocrine: No history of diabetes. Has not taken steroids within the past 30 days. No history of endocrinological symptoms or problems. Hematology: No history of bleeding or clotting disorder. Pt is not taking anti-coagulation or platelet medications. No history of hematological symptoms or problems. Oncology: hx of testicular cancer, surgery removed left testicle , radiation 4 years ago Psych: No history of psychiatric symptoms or problems. Musculoskeletal: Negative for joint pain or swelling, back pain or muscle pain. Skin: Negative for lesions, rash and itching. Objective PHYSICAL EXAM: VITALS: BP 127/66 Pulse 70 Temp (Src) 98.2 (Temporal Artery) Resp 18 Ht 5' 8 (1.73m) Wt 255 lb (115.7kg) SpO2 99% BMI 38.78 kg/(m2). General: Alert and oriented Skin: Normal color, no rash, no lesions. HEENT: EOM, pupils equal, round and reactive. Cardiovascular: Normal S1 AND S2, no rubs, murmurs or gallops. No JVD. Pulse regular. Lungs: Normal breath sounds, no wheezes or crackles. Abdomen: Positive bowel sounds, lower right quadrant incision s/p appendectomy -hernia, tender Extremities: No deformity, no edema or tenderness, no joint swelling or clubbing. Neurological: Normal cognition and motor skills. Pulses: Carotid and radial pulses normal +2. Diagnostic tests reviewed for today's visit: Lab Value Units Date High Low HB 15.1 g/dL 10/30/2018 17.0 13.0 HCT 45.5 % 10/30/2018 51.0 39.0 WBC 7.88 k/uL 10/30/2018 11.00 3.70 PLT 241 k/uL 10/30/2018 400 150 NA 140 mmol/L 10/30/2018 144 136 K 4.3 mmol/L 10/30/2018 5.1 3.7 GLUC 75 mg/dL 10/30/2018 99 74 BUN 12 mg/dL 10/30/2018 24 9 CREAT 0.89 mg/dL 10/30/2018 1.22 0.73 PTSEC No results within date range. INR No results within date range. APTT No results within date range. ALT 29 U/L 10/30/2018 54 10 AST 29 U/L 10/30/2018 40 14 TBILI 0.5 mg/dL 10/30/2018 1.3 0.2 TSH No results within date range. Lab Value Units Date High Low HCGQT No results within date range. UHCG No results within date range. HCG, BODY* No results within date range. Lab Value Units Date High Low ABORHD No results within date range. ABSCREEN No results within date range. Assessment/Plan Class 2 obesity in adult Assessment: Body mass index is 38.77 kg/m?. METS: Do yardwork, such as raking leaves, weeding,or pushing a power mower (4.50 METs) Climb a flight of stairs or walk up a hill (5.50 METs) Patient denies any chest pain or undue shortness of breath with the above physical activity. ASA Class: 3 ANESTHESIA FINDINGS: Intubation History: No history of difficult intubation Significant Anesthesia Considerations: None Airway Exam: General: Morbid obesity Mallampati Score is CLASS II ULBT: Unable to perform Neck: Distance from hyoid to mentum during neck extension is at least 3 finger breaths, Short neck, thick, facial hair, +snoring, Body mass index is 38.77 kg/m?. Mouth: Normal tongue size and Mouth opening greater than 2 finger breaths Dentition: Intact Airway History: No abnormal airway history STOP BANG Score: Criteria: Snoring BMI > 35 Age over 50 (53 year old) Neck circumference > 15.75 inches Male gender Score = 5 PLAN This patient is optimally prepared for surgery CONSULTS: Patient does not require consults for optimization at this time. The Following Tests/Procedures Have Been Initiated: per protocol Planned Anesthetic: General Instructions Given to Patient: Patient given verbal and written preop instructions and voices comprehension and compliance. SIGNATURE: Khadijah Skaggs APRN.CNP PATIENT NAME: Agustín Lacey DATE: October 30, 2018 TIME: 11:05 AM PAGER/CONTACT #: [facility] PROCEDUREon 10-30-2018 Protein mass conc HNO ID: [id number] Author: Rossy Hughes Service: ? Author Type: ? Type: Procedures Filed: 10/30/2018 3:13 PM Note Text: Radiology Service Progress Note DATE OF SERVICE: October 30, 2018 TIME: 3:12 PM PATIENT IDENTITY VERIFICATION COMPLETED USING TWO (2) METHODS: Patient confirmed name verbally and Date of . PATIENT GENDER DATA: Male PATIENT RELEVANT IMPLANT DATA REVIEWED: Not Applicable ALLERGIES: Reviewed and unchanged CONTRAST ALLERGY: NO. EXAM: CT -CONTRAST INDUCED NEPHROPATHY RISK FACTORS: Not applicable CREATININE: No results found for: CREAT, EGFROTH, EGFRAA P.O.C.T. RESULTS: POC done: Yes, See Lab Tab October 30, 2018 TREATMENT: N/A PERIPHERAL IV DATA: Ambulatory: A peripheral IV was started in the Right antecubital site with a Angio cath: 22 gauge. RADIOLOGY DEPARTMENT: CT; Exam(s) Completed: Abdomen/Pelvis SIGNATURE: Rossy Hughes PATIENT NAME: Agustín Lacey DATE: October 30, 2018 TIME: 3:12 PM Normal [facility] CNOVon 10-17-2018 CNOV Office Visit (GENSAV ) AGUSTÍN LACEY ([id number]) 1965 M Date Time Provider Department 10/17/18 1:15 PM SUNNY PACHECO During your visit today, we recorded the following information about you: Weight Height 113.9 kg 1.727 m Referring Provider: DEVENDRA CARR [[id number]] Allergies As of Date: 10/17/2018 Noted Allergy Reaction PENICILLIN 10/17/2018 16 - Unknown Comments: As a child Date Reviewed: 10/17/2018 Reviewed by: Sunny Pacheco - Fully Assessed Reason for Visit: Consult [173] Cmt: incisional hernia Primary Visit Diagnosis:Incisional hernia, without obstruction or gangrene [K43.2] Order(s):CT ABD/PEL W IVCON [[id number]] Order #: [id number] FUTURE iv contrast (will be provided with radiology test)CT ABD/PEL -Inject, intravenously, once for 1 dose.No IV access, insert saline lock prior to the beginning of sedation, infusion, injection of imaging exam. Discontinue saline lock post exam. If Pt. has a central line or IVAD, may access for administration according to line specific nursing protocol. Once exam is complete flush line and de-access according to line specific nursing protocol in the CT contrast administration guidelines link.Disp: 1 EachRfl: 0 enteric contrast (will be provided with radiology test)For CT ABD/PEL W IVCON Routine order Administer, As Directed One Time Only, via Oral, Rectal, both Oral and Rectal, Enteric Tube, Stoma or Indwelling Catheter, Enteric Contrast as designated per enteric contrast guidelinesDisp: 1 EachRfl: 0 Prescriptions as of 10/17/2018 Sig: CYPROHEPTADINE 4 MG TABLET TAKE 1/2 TO 1 TABLET BY MOUTH* TRIAMCINOLONE ACETONIDE 0.5 %* Apply to affected area twice * IV CONTRAST (RADIOLOGY PROCED* CT ABD/PEL -Inject, intraveno* ENTERIC CONTRAST (RADIOLOGY P* For CT ABD/PEL W IVCON Routin* Problem List As Of Date: 10/17/2018 (None) Prescriptions ordered this encounter Disp Refills Start End IV CONTRAST (RADIOLOGY PROCEDURE) 1 Ea* 0 10/17/2018 10/18/2018 Class: In Office Sig: CT ABD/PEL -Inject, intravenously, once for 1 dose.No IV access, insert saline lock prior to the beginning of sedation, infusion, injection of imaging exam. Discontinue saline lock post exam. If Pt. has a central line or IVAD, may access for administration according to line specific nursing protocol. Once exam is complete flush line and de-access according to line specific nursing protocol in the CT contrast administration guidelines link. ENTERIC CONTRAST (RADIOLOGY PROCEDUR* 1 Ea* 0 10/17/2018 10/18/2018 Class: In Office Sig: For CT ABD/PEL W IVCON Routine order Administer, As Directed One Time Only, via Oral, Rectal, both Oral and Rectal, Enteric Tube, Stoma or Indwelling Catheter, Enteric Contrast as designated per enteric contrast guidelines Encounter Status:Closed by SUNNY PACHECO MD on 10/17/18 [facility] HOSP 10-17-2018 HOSP Patient:Nicho Lacey joshua MRN: Height:5' 8 (1.727 m) Weight:255 lb (115.667 kg) Outpatient Medications as of 11/21/18: cyproheptadine (PERIACTIN) 4 mg tablet Admission/Clinic Administered Medications as of 11/21/18: lactated ringers infusion clindamycin iv piggyback 900 mg in D5W 50 mL (CLEOCIN) Problem List: Class 2 obesity in adult [E66.9] Allergies: Penicillin Date Verified: 11/21/18 Lab Values Lab Value Units Date High Low POTA* 4.3 mmol/L 10/30/2018 5.1 3.7 CHAI* 45.5 % 10/30/2018 51.0 39.0 Progress Notes ([facility]): Nel Garcia 11/07/2018 9:33 AM Signed From PA: Called and spoke to patient. He states he has known about this lung nodule for years and has remained stable. CT chest order has been placed, but will have him follow up with PCP for continued surveillance if necessary. Keep hernia surgery as scheduled. Thank you! Nel Garcia 11/07/2018 9:33 AM Signed Called and lmom to schedule CT Scan. Will follow up. Nel Garcai 11/07/2018 11:31 AM Signed Patient states that he is not interested in scheduling at this time. Patient states that he has had this for many years, PCP aware, and nodule is stable. Patient states that he follows with PCP for this, and will continue to do so. Nothing further needed at this time. Progress Notes ([facility]): Inés Evangelistaa COORD 11/05/2018 3:53 PM Signed Patient called inquiring about his medical leave forms faxed yesterday to Dr Pacheco's office, patient states forms have to be completed within 15 days, he is requesting to speak with [place] patient scheduler, please return his call at [phone]. Thank you. Cande Ortiz COORD 11/06/2018 11:11 AM Signed Spoke with patient and he will have the forms sent to [phone]. Sveta Zenaida COVARRUBIAS 11/17/2018 10:04 AM Signed FMLA forms recvd in [place], will complete and have Dr Pacheco sign after surgery on 11-21-18. [facility] Protein mass conc HNO ID: [id number] Author: Sunny Pacheco Service: General Surgery Author Type: Physician Type: Progress Notes Filed: 10/20/2018 8:09 AM Note Text: [facility] General Surgery Sunny Pacheco M.D., F.A.C.S. Chaitanya Guerrero [facility] [address] [place], [place] [address] NAME: AGUSTÍN LACEY [facility] NO: [id number] DATE OF SERVICE: 10/17/2018 PLACE OF ENCOUNTER: [place] HISTORY OF PRESENT ILLNESS: Referred by Dr. Devendra Carr D.O. at the [facility]. Mr. Lacey is here with his . He is a 54-year- old man with modest abdominal obesity at 5'8 and 261 pounds. 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 He lives in [place], [place]. No history of cigarettes. Enjoys reasonably good health. Available [facility] records are verified, confirmed and updated. He is here for a hernia in the right lower quadrant abdominal wall, incisional, from an appendectomy he had performed through a large McBurney's incision about six months ago in 03/2018 at [place], [place]. Those operative records are reviewed. His recovery was aggravated by discomfort and a bulge and an open wound that healed by secondary intention. 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 This was radiation therapy and a left orchiectomy. PHYSICAL EXAMINATION: Examination standing and supine, abdominal wall obesity. A very large 10-12 cm hernia in the right lower quadrant abdomen. Large McBurney's incision. This does self-reduce completely at recumbency. No abdominal organomegaly, masses or lymphadenopathy otherwise. PLAN: Available CT scan reports are reviewed. I would like another scan and will visualize this one with oral and I.V. contrast to confirm that there is no bowel present within hernia content which clinically is not apparent. He is not having any signs or symptoms of bowel obstruction or abdominal pain. He is continuing to work with this large hernia. I have asked him to lose some weight prior to surgery. Anticipate surgery in the next few weeks, however. This will be a combination of laparoscopic and open with intra- abdominal mesh repair for reinforcement. A subcutaneous drain will be placed for the large subcutaneous space that will exist postoperatively. Regarding the surgery, the benefits, risks, alternatives, no guarantees of the eventual outcome and personnel are discussed at length in detail in layman's terms with the patient and his . They understand, agree and wish to proceed with surgical alternative. To be performed at [facility]. SUNNY PACHECO M.D. BB/102 Audio #: [id number] cc: Devendra Carr D.O. [address] [place] [address] [address] [place] [address] Date Dictated: 10/17/2018 15:14:15 Date Typed: 10/18/2018 00:56:31 Date Revised: Normal [facility] Coding Summary.on 07-14-2018 Coding Summary. CODING DATE: 07/14/2018 FINAL [facility] STATUS: Home (Routine DC) PAYOR: [employer] Insurance APC DESCRIPTION 5571 Level 1 Imaging with Contrast ADMIT DX: REASON FOR VISIT DX: R10.11 Right upper quadrant pain R10.31 Right lower quadrant pain FINAL DX: PRINCIPAL: G89.18 Other acute postprocedural pain SECONDARY: R10.11 Right upper quadrant pain R10.31 Right lower quadrant pain E78.00 Pure hypercholesterolemia, unspecified Z88.0 Allergy status to penicillin PYMT PROC APC STAT DESCRIPTION DOCTOR NAME DATE NOTE: The code number assigned matches the documented diagnosis and / or procedure in the patient's chart. However, the narrative phrase printed from the coding software may appear abbreviated, or result in slightly different terminology. Coded By: Estee Travis Date Saved: 07/14/2018 12:19 pm Normal [facility] [place] [facility] ED Note-Physicianon 07-12-20 ED Note-Physician Basic Information Time Seen: Natacha Shaffer DO 07/11/2018 18:41 Chief Complaint Open appy 04/02. States swelling RUQ/RLQ abdomen. Unable to get in to see PCP or surgeon until next month. Incision closed with no drainage. Denies fever, N/V. C/O itching and visualized rash on upper incision. No unusual redness to incision noted. History of Present Illness 53M PRESENTS TO THE ED WITH SWELLING AROUND HIS SURGICAL SITE HE HAD AN OPEN APPENDECTOMY ON 04/02 AT [facility]. HE STATES HE DID NOT FEEL WELL POST OPERATIVELY, THE AREA HEALED WELL, NO DRAINAGE NOTED. HE DENIES ANY CHEST PAIN, SHORTNESS OF BREATH, NAUSEA, VOMITING OR ABDOMINAL PAIN. HE STATES HE FEEL SOME SWELLING AROUND THE SURGICAL SITE AND IT FEELS LIKE IT IS GETTING WORSE. HE IS HAVING NORMAL BOWEL MOVEMENTS, NO DIARRHEA OR CONSTIPATION. EATING AND DRINKING WELL. HE STATES HE DOES NOT WANT TO FOLLOW UP WITH HE SURGEON WHO DID THE SURGERY HE HAS BEEN VERY HARD TO GET A HOLD OF. NO RASH. Review of Systems Unless otherwise stated in this report the patient's positive and negative responses for review of systems for constitutional, eyes, ENT, cardiovascular, respiratory, gastrointestinal, neurological, genitourinary, musculoskeletal, and integument systems and related systems to the presenting problem are either as stated in the HPI or were not pertinent or were negative for the symptoms and/or complaints related to the presenting medical problem. Physical Exam Vitals & Measurements T: 36.8 ?C (Oral) HR: 80(Peripheral) RR: 18 BP: 138/80 SpO2: 97% HT: 173 cm WT: 113.5 kg BMI: 37.92 Nursing notes reviewed. Vitals reviewed. No hypoxia. Afebrile. General: Alert, no acute distress, patient resting comfortably, patient does not appear toxic or ill. Skin: warm, intact, no pallor noted Head: Normocephalic, atraumatic Eye: Normal conjunctiva Cardiac: Normal peripheral perfusion. Respiratory: No acute distress. Respirations nonlabored. Gastrointestinal: Abdomen soft, no distension, nontender, bowel sounds present. surgical scar present in the RLQ, there is some fluctuance around the area, no induration or erythema, no discharge, the scar is well appearing. no tenderness. Musculoskeletal: No deformity, full ROM. No edema Neurological: alert and oriented, normal sensory and motor observed. Psychiatric: Cooperative Medical Decision Making WILL CHECK LABS AND CT CT REVIEWED CASE DISCUSSED WITH WELDING PROCESS ENGINEER SURGEON HE WILL SEE THE PATIENT IN THE OFFICE - NO NEED FOR ANTIBIOTICS AT THIS TIME PATIENT IS ASYMPTOMATIC, NO FEVER AND NO LEUKOCYTOSIS PATIENT AND FAMILY UPDATED AND THEY AGREE WITH THE PLAN DISCHARGED HOME Assessment/Plan 1. Post-op pain Orders: Automated Diff CBC w/ Auto Diff Comprehensive Metabolic Panel CT Abdomen/Pelvis w/ Contrast eGFR Extra Blue Tube Extra SST Tube Disposition Plan Patient Discharge Condition STABLE Discharge Disposition HOME Discharge Prescription List Prescriptions No active prescription medications Follow-up With When Contact Information Bert QUIROZ In 3 days 07/14/2018 EST [address] [facility] [address] [place] [address]- Business (1) Additional Instructions: please call the office in the AM Dr Quiroz will see you for follow up if symptoms worsen, please return to the ED DEVENDRA CARR Within 1 to 2 days [address] [place] [address]- Business (1) Additional Instructions: Return to ED if symptoms worsen Patient Education Open Appendectomy, Care After Problem List/Past Medical History Ongoing Hypercholesterolemia Historical Appendicitis with perforation Benign polyp of colon. Cancer Procedure/Surgical History Appendectomy; for ruptured appendix with abscess or generalized peritonitis, Colonoscopy and biopsy of colon. Medications Inpatient No active inpatient medications Home No active home medications Allergies penicillin (unknown) Social History Alcohol - Denies Alcohol Use, 07/11/2018 Substance Abuse - Denies Substance Abuse, 07/11/2018 Tobacco - Denies Tobacco Use, 07/11/2018 Lab Results WBC: 8.8 E9/L (07/11/18 19:10:00 EST) RBC: 5 E12/L (07/11/18 19:10:00 EST) Hgb: 14.8 gm/dL (07/11/18 19:10:00 EST) Hct: 43.1 % (07/11/18 19:10:00 EST) MCV: 87.1 fL (07/11/18 19:10:00 EST) MCH: 29.9 pg (07/11/18 19:10:00 EST) MCHC: 34.3 gm/dL (07/11/18 19:10:00 EST) RDW: 14.2 % (07/11/18 19:10:00 EST) Platelet: 202 E9/L (07/11/18 19:10:00 EST) MPV: 7.2 fL (07/11/18 19:10:00 EST) Neutro Auto: 65.1 % (07/11/18 19:10:00 EST) Lymph Auto: 21.9 % (07/11/18 19:10:00 EST) [place] Auto: 7.2 % (07/11/18 19:10:00 EST) Eos Auto: 3.8 % (07/11/18 19:10:00 EST) Basophil Auto: 2 % (07/11/18 19:10:00 EST) Neutro Absolute: 5.7 E9/L (07/11/18 19:10:00 EST) Lymph Absolute: 1.9 E9/L (07/11/18 19:10:00 EST) [place] Absolute: 0.6 E9/L (07/11/18 19:10:00 EST) Eos Absolute: 0.3 E9/L (07/11/18 19:10:00 EST) Basophil Absolute: 0.2 E9/L (07/11/18 19:10:00 EST) Glucose Lvl: 89 mg/dL (07/11/18 19:10:00 EST) BUN: 14 mg/dL (07/11/18 19:10:00 EST) Creatinine: 0.9 mg/dL (07/11/18 19:10:00 EST) eGFR: >60 (07/11/18 19:10:00 EST) eGFR AA: >60 (07/11/18 19:10:00 EST) BUN/Creat Ratio: 16 (07/11/18 19:10:00 EST) Sodium Lvl: 135 mmol/L (07/11/18 19:10:00 EST) Potassium Lvl: 3.8 mmol/L (07/11/18 19:10:00 EST) Chloride: 100 mmol/L Low (07/11/18 19:10:00 EST) CO2: 26 mmol/L (07/11/18 19:10:00 EST) AGAP: 13 mEq/L (07/11/18 19:10:00 EST) Calcium Lvl: 9.2 mg/dL (07/11/18 19:10:00 EST) Alk Phos: 49 Int._Unit/L (07/11/18 19:10:00 EST) ALT: 32 Int._Unit/L (07/11/18 19:10:00 EST) AST: 27 Int._Unit/L (07/11/18 19:10:00 EST) Total Protein: 7.1 gm/dL (07/11/18 19:10:00 EST) Albumin Lvl: 4.1 gm/dL (07/11/18 19:10:00 EST) Globulin: 3 gm/dL (07/11/18 19:10:00 EST) A/G Ratio: 1.4 (07/11/18 19:10:00 EST) Bili Total: 0.6 mg/dL (07/11/18 19:10:00 EST) Diagnostic Results CT Abdomen/Pelvis w/ Contrast 07/11/18 20:21:17 IMPRESSION: 1. APPROXIMATELY 3 X 2 CM SOFT TISSUE DENSITY WITHIN RLQ ABDOMINAL WALL AT THE APPENDECTOMY SITE WITHOUT A FLUID COLLECTION OR KIRILL ABSCESS. HOWEVER, A FOCAL INFLAMMATORY PROCESS OR?PHLEGMON?IN RLQ ABDOMINAL WALL POSSIBLE. 2. NO MASS,?FREE FLUID?, ABSCESS OR PNEUMOPERITONEUM IN THE ABDOMEN. 3. HEPATIC STEATOSIS WITHOUT HEPATOMEGALY OR FOCAL LIVER LESIONS. 4. INCIDENTAL LEFT RENAL PARAPELVIC CYST AND A DISTAL RIGHT URETEROCELE. 5. NONDILATED LARGE AND SMALL BOWEL UNREMARKABLE AND NO BOWEL OBSTRUCTION. 6. ADDITIONAL INCIDENTAL FINDINGS IN BODY OF REPORT. CLINICAL HISTORY: HISTORY OF TESTICULAR CANCER WITH RADIOTHERAPY, PRIOR APPENDECTOMY, PATIENT WITH RLQ ABDOMINAL PAIN COMMENT: CT ABDOMEN AND PELVIS WITH IV CONTRAST TECHNIQUE: CT abdomen and pelvis was obtained following intravenous injection 100 cc of Isovue-300. Also, oral contrast media was given for this CT scan. FINDINGS: There is hepatic steatosis but no hepatomegaly or focal liver lesion. The gallbladder, spleen, pancreas and adrenal glands appear normal. There is a left renal parapelvic cyst. There is no nephrolithiasis or hydronephrosis. There is bilateral nonspecific mild?perinephric stranding?. There is no retroperitoneal adenopathy. There is atherosclerotic calcification of the abdominal aorta without an abdominal aorta aneurysm. No?free fluid?, abscess or pneumoperitoneum in abdomen. Nondistended stomach and upper GI tract unremarkable. Nondilated small bowel unremarkable and there is no SBO. There are postoperative changes in the RLQ abdominal wall presumably from the recent appendectomy. There is an approximately 3 x 2 cm soft tissue density in the RLQ abdominal wall which may very well represent a small phlegmon. However, there is no fluid collection or abscess in the RLQ. Nondilated colon unremarkable and no CT evidence of diverticulitis or colitis. No bowel obstruction. CT scan of the pelvis demonstrates normal appearance of the prostate gland and seminal vesicles. There is evidence of a 2 cm ureterocele in the right side of the urinary bladder. There is no pelvic mass, adenopathy or?free fluid?in the pelvis. There is a fat-containing left inguinal hernia. All CT scans at this facility use dose modulation, iterative reconstruction, and/or weight based dosing when appropriate to reduce radiation dose to as low as reasonably achievable. Signed By: Theodore Gee MD 07/11/18 19:55:39 GFR (mL/min/1/73m2) >60 Contrast: Isovue 300 Contrast amount in ml?s: 100 Rectal Contrast Given? No Signed By: Theodore Gee MD Normal [facility] Comment on above: Result Comment: Elec tronically Signed By: Natacha Shaffer DO\.br\Date and Time Signed: 07/12/18 03:41 EST Auto Diffon 07-11-2018 Basophils/100 WBC (Bld) 2.0 % Normal 0.0-2.0 [facility] Comment on above: Order Comment: Order Added by Discern Expert. Performed By: #### 2 [id number], 9363331, [id number], [id number] #### [facility] [address] [place] [address] Basophils/Leukocyte s Auto (Bld) [Pure # fraction] 0.2 E9/L Normal 0.0-0.2 [facility] Comment on above: Order Comment: Order Added by Discern Expert. Performed By: #### 2 312069, 0379184, 0176763, [id number] #### [facility] [address] [place] [address]52 Eosinophils/100 WBC (Bld) 3.8 % Normal 0.0-8.0 [facility] Comment on above: Order Comment: Order Added by Discern Expert. Performed By: #### 2 145433, 3798410, 7742582, [id number] #### [facility] [address] [place] [address] Eosinophils/Leukocy sandeep Auto (Bld) [Pure # fraction] 0.3 E9/L Normal 0.0-0.5 [facility] Comment on above: Order Comment: Order Added by Discern Expert. Performed By: #### 2 014085, 9327042, 0461222, [id number] #### [facility] [address] [place] [address] 21687 Lymphocytes/100 WBC (Bld) 21.9 % Normal 14.0-50.0 [facility] Comment on above: Order Comment: Order Added by Discern Expert. Performed By: #### 2 446414, 2976613, 3205831, [id number] #### [facility] [address] [place] [address]657 Lymphocytes/Leukocy sandeep Auto (Bld) [Pure # fraction] 1.9 E9/L Normal 1.0-4.0 [facility] Comment on above: Order Comment: Order Added by Discern Expert. Performed By: #### 2 566833, 1031127, 5280410, [id number] #### [facility] [address] [place] [address] Monocytes/100 WBC (Bld) 7.2 % Normal 4.0-14.0 [facility] Comment on above: Order Comment: Order Added by Discern Expert. Performed By: #### 2 762202, 1198386, 9529320, 60884760 #### [facility] [address] [place] [address] Monocytes/Leukocyte s Auto (Bld) [Pure # fraction] 0.6 E9/L Normal 0.2-1.0 [facility] Comment on above: Order Comment: Order Added by Discern Expert. Performed By: #### 2 002131, 9113966, 0778481, [id number] #### [facility] [address] [place] [address] Neutrophils/100 WBC (Bld) 65.1 % Normal 36.0-75.0 [facility] Comment on above: Order Comment: Order Added by Discern Expert. Performed By: #### 2 194419, 4808941, 3518364, 34557587 #### [facility] [address] [place] [address] Neutrophils/Leukocy sandeep Auto (Bld) [Pure # fraction] 5.7 E9/L Normal 2.0-7.5 [facility] Comment on above: Order Comment: Order Added by Discern Expert. Performed By: #### 2 070479, 1440740, 5410883, 74093378 #### [facility] [address] [place] [address] CBC w/ Auto Diffon 8 Erythrocyte distribution width (RBC) [Ratio] 14.2 % Normal 10.9-14.2 [facility] Comment on above: Performed By: #### 2 014677, 4711398, 9774918, 94962981 #### [facility] [address] [place] [address] Hematocrit (Bld) [Volume fraction] 43.1 % Normal 37.7-49.0 [facility] Comment on above: Performed By: #### 2 126462, 9775157, 0609537, 43912026 #### [facility] [address] [place] [address]8986 Hemoglobin (Bld) [Mass/Vol] 14.8 g/dL Normal 13.5-17.5 [facility] Comment on above: Performed By: #### 2 395772, 1668654, 4013064, 66886467 #### [facility] [address] [place] [address] MCH (RBC) [Entitic mass] 29.9 pg Normal 27.0-34.0 [facility] Comment on above: Performed By: #### 2 425917, 6637682, 0083894, 64403644 #### [facility] [address] [place] [address] MCHC (RBC) [Mass/Vol] 34.3 g/dL Normal 31.4-39.3 [facility] Comment on above: Performed By: #### 2 088703, 6778342, 7708209, 65862127 #### [facility] [address] [place] [address] MCV (RBC) [Entitic vol] 87.1 fL Normal 80.0-100.0 [facility] Comment on above: Performed By: #### 2 755296, 5873434, 3913952, 86049671 #### [facility] [address] [place] [address] Platelet mean volume (Bld) [Entitic vol] 7.2 fL Normal 6.4-10.8 [facility] Comment on above: Performed By: #### 2 028540, 7751800, 8762284, 60505498 #### [facility] [address] [place] [address] Platelets (Bld) [#/Vol] 202.0 E9/L Normal 150.0-500.0 [facility] Comment on above: Performed By: #### 2 691873, 4709127, 6475599, 08136045 #### [facility] [address] [place] [address] 53062 RBC (Bld) [#/Vol] 5.0 E12/L Normal 4.3-5.9 [facility] Comment on above: Performed By: #### 2 365692, 9266875, 8299842, 67711831 #### [facility] [address] [id number] WBC corrected for nucl RBC Auto (Bld) [#/Vol] 8.8 E9/L Normal 4.0-11.0 [facility] Comment on above: Performed By: #### 2 743767, 4139577, 4924481, 98322939 #### [facility] [address] [place] [address] CMPon 07-11-2018 Albumin [Mass/Vol] 4.1 g/dL Normal 3.3-5.0 [facility] Comment on above: Performed By: #### 2 538094, 0942382, 6132641, 96936193 #### [facility] [address] [place] [address] Albumin [Mass/Vol] 1.4 g/dL Normal 1.1-2.2 [facility] Comment on above: Performed By: #### 2 603489, 3707183, 9592764, 20768666 #### [facility] [address] [place] [address] ALP [Catalytic activity/Vol] 49 Int._Unit/L Normal 21-98 [facility] Comment on above: Performed By: #### 2 398460, 6192563, 5224221, 42589698 #### [facility] [address] [place] [address]57 ALT No additional P-5'-P [Catalytic activity/Vol] 32 Int._Unit/L Normal 6-46 [facility] Comment on above: Performed By: #### 2 501644, 5821235, 4898939, 43883158 #### [facility] [address] [place] [address] AST [Catalytic activity/Vol] 27 Int._Unit/L Normal 5-43 [facility] Comment on above: Performed By: #### 2 620477, 0128747, 4671418, 15591866 #### [facility] [address] [place] [address] Bilirubin [Mass/Vol] 0.6 mg/dL Normal 0.0-1.1 [facility] Comment on above: Performed By: #### 2 769934, 7380255, 2732621, 37052382 #### [facility] [address] [place] [address] Creatinine [Mass/Vol] 0.9 mg/dL Normal 0.5-1.3 [facility] Comment on above: Performed By: #### 2 958246, 0461082, 5361241, 37026936 #### [facility] [address] [place] [address] Globulin (S) [Mass/Vol] 3.0 g/dL Normal 1.4-4.0 [facility] Comment on above: Performed By: #### 2 563822, 7352639, 3004305, 35647226 #### [facility] [address] [place] [address] Protein [Mass/Vol] 7.1 g/dL Normal 6.0-7.8 [facility] Comment on above: Performed By: #### 2 954734, 2223234, 3269519, 97585135 #### [facility] [address] [place] [address] Urea nitrogen [Mass/Vol] 14 mg/dL Normal 5-21 [facility] Comment on above: Performed By: #### 2 189052, 2335607, 3273223, 59951317 #### [facility] [address] [place] [address] Urea nitrogen/Creatinine [Mass ratio] 16 No Units Normal 10-20 [facility] Comment on above: Performed By: #### 2 114416, 1720770, 8560791, 59258036 #### [facility] [address] [place] [address] Anion gap [Moles/Vol] 13 mmol/L Normal 6-16 [facility] Comment on above: Performed By: #### 2 328097, 1085563, 5563112, 89353700 #### [facility] [address] [place] [address] Calcium [Mass/Vol] 9.2 mg/dL Normal 8.9-11.1 [facility] Comment on above: Performed By: #### 2 877645, 1436518, 4216083, 13526482 #### [facility] [address] [place] [address] Chloride [Moles/Vol] 100 mmol/L Low 101-111 [facility] Comment on above: Performed By: #### 2 702833, 0272727, 5394893, 85135070 #### [facility] [address] [place] [address] CO2 [Moles/Vol] 26 mmol/L Normal 21-[address] [facility] Comment on above: Performed By: #### 2 002703, 5596815, 2828700, 89105083 #### [facility] [address] [place] [address] Glucose [Mass/Vol] 89 mg/dL Normal 55-199 [facility] Comment on above: Result Comment: If t his glucose result represents a fasting glucose, interpretation should refer to the following reference range: 55-99 mg/dL Performed By: #### 2 349480, 8897262, 3820313, 94770445 #### [facility] [address] [place] [address] Potassium [Moles/Vol] 3.8 mmol/L Normal 3.5-5.3 [facility] Comment on above: Performed By: #### 2 091764, 4231281, 0077485, 82970773 #### [facility] [address] [place] [address] Sodium [Moles/Vol] 135 mmol/L Normal 135-145 [facility] Comment on above: Performed By: #### 2 411593, 1076260, 3013480, 46644157 #### [facility] [address] [place] [address] ED Clinical Summaryon 2017 ED Clinical Summary [address] [address] ED Clinical Summary Person Information Name: AGUSTÍN LACEY Jyothi/[facility] Age: 53 Years : 1965 12:00 AM Sex: Male Language: Egyptian PCP: DEVENDRA CARR DO Marital Status: Phone: [phone] Visit Id: Visit Reason: Abdominal swelling; Rash; Abdominal pain; ABD PAIN Speciality: Acuity: 3 Enc Type: Emergency Med Service: Emergency Arrival: 07/11/2018 4:20 PM Discharge: 07/11/2018 9:18 PM LOS: 000 04:58 Checkin: 07/11/2018 4:20 PM Checkout: 07/11/2018 9:18 PM Dispo Type: Home (Routine DC) EVENTS: Event Name Event Status Request Date/Time Start Date/Time Complete Date/Time Arrive Complete 07/11/2018 4:20 PM 07/11/2018 4:20 PM 07/11/2018 4:20 PM Document Home Meds Complete 07/11/2018 4:20 PM 07/11/2018 6:38 PM 07/11/2018 6:38 PM Triage Complete 07/11/2018 4:20 PM 07/11/2018 4:44 PM 07/11/2018 4:44 PM Bed Assign Complete 07/11/2018 6:18 PM 07/11/2018 6:18 PM 07/11/2018 6:[address] Exam Complete 07/11/2018 6:18 PM 07/11/2018 6:41 PM 07/11/2018 6:41 PM RN Exam Complete 07/11/2018 6:18 PM 07/11/2018 6:38 PM 07/11/2018 6:38 PM Registration Complete 07/11/2018 6:41 PM 07/11/2018 6:41 PM 07/11/2018 6:41 PM Reg Complete Request 07/11/2018 6:41 PM Patient Care Request 07/11/2018 6:41 PM Patient Care Request 07/11/2018 6:41 PM Patient Care Request 07/11/2018 6:41 PM Patient Care Request 07/11/2018 6:41 PM Registration Complete 07/11/2018 6:41 PM 07/11/2018 6:48 PM 07/11/2018 6:48 PM Pending Labs Complete 07/11/2018 6:50 PM 07/11/2018 7:41 PM Lab Complete 07/11/2018 6:50 PM 07/11/2018 7:[address] Complete 07/11/2018 6:50 PM 07/11/2018 7:41 PM 07/11/2018 7:55 PM Pending Labs Complete 07/11/2018 7:20 PM 07/11/2018 7:20 PM 07/11/2018 7:41 PM Lab Complete 07/11/2018 7:20 PM 07/11/2018 7:20 PM 07/11/2018 7:41 PM Pending Labs Complete 07/11/2018 7:31 PM 07/11/2018 7:31 PM 07/11/2018 7:31 PM Lab Complete 07/11/2018 7:31 PM 07/11/2018 7:31 PM 07/11/2018 7:31 PM Pending Labs Complete 07/11/2018 8:35 PM 07/11/2018 8:35 PM 07/11/2018 8:35 PM Consult Request 07/11/2018 8:38 PM Discharge Complete 07/11/2018 8:39 PM 07/11/2018 9:18 PM 07/11/2018 9:18 PM Transfer Complete 07/11/2018 9:18 PM 07/11/2018 9:18 PM 07/11/2018 9:18 PM ADDRESS: [address] [place] [id number] [facility] DOC NOTES: MEDICAL INFORMATION: Prescriptions Given: PATIENT EDUCATION INFORMATION: Instructions: Open Appendectomy, Care After Follow up: With: Address: When: Bert ERIC, [address] [place] [address] Business (1) In 3 days 07/14/2018 Comments: please call the office in the AM Dr Quiroz will see you for follow up if symptoms worsen, please return to the ED With: Address: When: DEVENDRA CARR [address] [facility], [place], [place] [id number] Business (1) Within 1 to 2 days Comments: Return to ED if symptoms worsen DIAGNOSIS: 1:Post-op pain Normal [facility] ED Patient Education Noteon 07-11-2018 ED Patient Education Note Family Medicine Open Appendectomy Care After Refer to this sheet in the next few weeks. These instructions provide you with information on caring for yourself after your procedure. Your caregiver may also give you more specific instructions. Your treatment has been planned according to current medical practices, but problems sometimes occur. Call your caregiver if you have any problems or questions after your procedure. HOME CARE INSTRUCTIONS ? Do not drive while taking narcotic pain medicines. ? Use stool softener if you become constipated from your pain medicines. ? Change your bandages (dressings) as directed. ? Keep your wounds clean and dry. You may wash the wounds gently with soap and water. Gently pat the wounds dry with a clean towel. ? Do not take baths, swim, or use hot tubs for 10 days, or as instructed by your caregiver. ? Only take ezvp-dol-uegmyqe or prescription medicines for pain, discomfort, or fever as directed by your caregiver. ? You may continue your normal diet as directed. ? Do not lift more than 10 pounds (4.5 kg) or play contact sports for 3 weeks, or as directed. ? Slowly increase your activity after surgery. ? Take deep breaths to avoid getting a lung infection (pneumonia). SEEK MEDICAL CARE IF: ? You have redness, swelling, or increasing pain in your wounds. ? You have pus coming from your wounds. ? You have drainage from a wound that lasts longer than 1 day. ? You notice a bad smell coming from the wounds or dressing. ? Your wound edges break open after stitches (sutures) have been removed. ? You notice increasing pain in the shoulders (shoulder strap areas) or near your shoulder blades. ? You develop dizzy episodes or fainting while standing. ? You develop shortness of breath. ? You develop persistent nausea or vomiting. ? You cannot control your bowel functions or lose your appetite. ? You develop diarrhea. SEEK IMMEDIATE MEDICAL CARE IF: ? You have a fever. ? You develop a rash. ? You have difficulty breathing or chest pain. ? You develop any reaction or side effects to medicines given. MAKE SURE YOU: ? Understand these instructions. ? Will watch your condition. ? Will get help right away if you are not doing well or get worse. Document Released: 02/12/2005 Document Revised: 09/22/2012 Document Reviewed: 01/08/2012 ExitCare? Patient Information ?2014 [employer]. This information is not intended to replace advice given to you by your health care provider. Make sure you discuss any questions you have with your health care provider. Normal [facility] ED Patient Summaryon 018 ED Patient Summary [address] [address] Patient Discharge Instructions Person Information Name: AGUSTÍN LACEY Age: 53 Years Arrival Date: 07/11/2018 4:20 PM Discharge Diagnosis: 1:Post-op pain Primary Care Physician: DEVENDRA CARR DO Provider Information Primary Provider: Natacha Shaffer DO Advanced Litigation Paralegal:None The exam and treatment you received in the Emergency Department were for an urgent problem and are not intended as complete care. It is important that you follow up with a doctor, nurse practitioner, or physician?s account assistant for ongoing care. If your symptoms become worse or you do not improve as expected and you are unable to reach your usual health care provider, you should return to the Emergency Department. We are available 24 hours a day. AGUSTÍN LACEY has been given the following list of patient education materials, prescriptions and follow-up instructions: Follow-up Instructions: With: Address: When: Bert QUIROZ [address] [facility], [address] [place] [address] Business (1) In 3 days 07/14/2018 Comments: please call the office in the AM Dr Quiroz will see you for follow up if symptoms worsen, please return to the ED With: Address: When: DEVENDRA CARR [address] [place] [id number] Business (1) Within 1 to 2 days Comments: Return to ED if symptoms worsen In the event that this physician does not participate in your insurance network, please consult with your insurance company to find a nearby participating provider. Patient Education Materials: Open Appendectomy, Care After A MESSAGE TO ALL PATIENTS REGARDING OPIOIDS PRESCRIPTION OPIOIDS: WHAT YOU NEED TO KNOW Prescription opioids can be used to help relieve avfjqhrv-xy-vvzpnu pain and are often prescribed following a surgery or injury, or for certain health conditions. These medications can be an important part of the treatment but also come with serious risks. It is important to work with your healthcare provider to make sure you are getting the safest, most effective care. WHAT ARE THE RISKS AND SIDE EFFECTS OF OPIOID USE? Prescription opioids carry serious risks of addiction and overdose, especially with prolonged use. An opioid overdose, often marked by slowed breathing, can cause sudden . The use of prescription opioids can have a number of side effects as well, even when taken as directed: ? Tolerance?meaning you might need to take more of the medication for the same pain relief ? Physical dependence?meaning you have symptoms of withdrawal when a medication is stopped ? Increased sensitivity to pain ? Constipation ? Nausea, vomiting, and dry mouth ? Sleepiness and dizziness ? Confusion ? Depression ? Low levels of testosterone that can result in lower sex drive, energy, and strength ? Itching and sweating RISKS ARE GREATER WITH: ? History of drug misuse, substance use disorder, or overdose ? Mental health conditions (such as depression or anxiety) ? Sleep apnea ? Older age (65 years and older) ? Avoid alcohol while taking prescription opioids. Also, unless specifically advised by your health care provider, medications to avoid include: ? Benzodiazepines (such as Xanax or Valium) ? Muscle relaxants (such as Soma or Flexeril) ? Hypnotics (such as Ambien or Lunesta) ? Other prescription opioids KNOW YOUR OPTIONS Talk to your health care provider about ways to manage your pain that don?t involve prescription opioids. Some of these options may actually work better and have fewer risks and side effects. Options may include: ? Pain relievers such as acetaminophen, ibuprofen, and naproxen ? Some medication that are also used for depression or seizures ? Physical therapy and exercise ? Cognitive behavioral therapy, a psychological, goal-directed approach, in which patients learn how to modify physical, behavioral, and emotional triggers of pain and stress. IF YOU ARE PRESCRIBED OPIOIDS FOR PAIN: ? Never take opioids in greater amounts or more often than prescribed. ? Follow up with your primary health care provider. o Work together to create a plan on how to manage your pain. o Talk about ways to help manage your pain that don?t involve prescription opioids. o Talk about any and all concerns and side effects. ? Help prevent misuse and abuse o Never sell or share prescription opioids. o Never use another person?s prescription opioids. ? Store prescription opioids in a secure place and out of reach of others (this may include visitors, children, friends, and family). ? Safely dispose of unused prescription opioids: Find your community drug take-back program or your pharmacy mail-back program, or flush them down the toilet, following guidance from the Food and Drug Administration (www.fda.gov/Drugs/Res ourcesForYou). ? Visit www.cdc.gov/drugoverdo se to learn about the risks of opioids abuse and overdose. ? If you believe you may be struggling with addiction, tell your health career technical supervisor and ask for guidance or call [facility]S National Helpline at 8-053-403-VHRP. e Source: US Department of Health and Human Services/Center for Disease Control & Prevention [facility] Medications Given: Medication Dose Route No medications found. Medication Information: Comment: Pharmacy Information: PRISCILLA Nguyen Thank you for choosing [facility] Patient Education Materials: Open Appendectomy Care After Refer to this sheet in the next few weeks. These instructions provide you with information on caring for yourself after your procedure. Your caregiver may also give you more specific instructions. Your treatment has been planned according to current medical practices, but problems sometimes occur. Call your caregiver if you have any problems or questions after your procedure. HOME CARE INSTRUCTIONS ? Do not drive while taking narcotic pain medicines. ? Use stool softener if you become constipated from your pain medicines. ? Change your bandages (dressings) as directed. ? Keep your wounds clean and dry. You may wash the wounds gently with soap and water. Gently pat the wounds dry with a clean towel. ? Do not take baths, swim, or use hot tubs for 10 days, or as instructed by your caregiver. ? Only take ocqu-omv-quobnka or prescription medicines for pain, discomfort, or fever as directed by your caregiver. ? You may continue your normal diet as directed. ? Do not lift more than 10 pounds (4.5 kg) or play contact sports for 3 weeks, or as directed. ? Slowly increase your activity after surgery. ? Take deep breaths to avoid getting a lung infection (pneumonia). SEEK MEDICAL CARE IF: ? You have redness, swelling, or increasing pain in your wounds. ? You have pus coming from your wounds. ? You have drainage from a wound that lasts longer than 1 day. ? You notice a bad smell coming from the wounds or dressing. ? Your wound edges break open after stitches (sutures) have been removed. ? You notice increasing pain in the shoulders (shoulder strap areas) or near your shoulder blades. ? You develop dizzy episodes or fainting while standing. ? You develop shortness of breath. ? You develop persistent nausea or vomiting. ? You cannot control your bowel functions or lose your appetite. ? You develop diarrhea. SEEK IMMEDIATE MEDICAL CARE IF: ? You have a fever. ? You develop a rash. ? You have difficulty breathing or chest pain. ? You develop any reaction or side effects to medicines given. MAKE SURE YOU: ? Understand these instructions. ? Will watch your condition. ? Will get help right away if you are not doing well or get worse. Document Released: 02/12/2005 Document Revised: 09/22/2012 Document Reviewed: 01/08/2012 ExitCare? Patient Information ?2014 [employer]. This information is not intended to replace advice given to you by your health care provider. Make sure you discuss any questions you have with your health care provider. DEEPTHI Riley WILLIAM D , have received the following patient education materials/instructions and have verbalized understanding: Patient Education Materials: Open Appendectomy, Care After Follow-up Instructions: With: Address: When: [address], [address] [place], [place] [id number] [employer] (1) In 3 days 07/14/2018 Comments: please call the office in the AM Dr Quiroz will see you for follow up if symptoms worsen, please return to the ED With: Address: When: DEVENDRA CARR [address] [place] [address] Business (1) Within 1 to 2 days Comments: Return to ED if symptoms worsen Prescriptions: Patient Signature Date Clinician/Nurse Signature ___ Date 07/11/18 21:18:59 Normal [facility] eGFRon 07-11-2018 GFR/1.73 sq M predicted among blacks MDRD (S/P/Bld) [Vol rate/Area] mL/min/{1.73_m2} Normal >=59 [facility] Comment on above: Order Comment: Order added by Discern Expert. Result Comment: eGFR is race adjusted. AA=. Performed By: #### 2 [id number] #### [facility] [address] [place] [address] GFR/1.73 sq M predicted among non-blacks MDRD (S/P/Bld) [Vol rate/Area] mL/min/{1.73_m2} Normal >=59 [facility] Comment on above: Order Comment: Order added by Discern Expert. Result Comment: Mold Sander nilay kidney disease could be indicated at eGFR's of less than 60 mL/min/1.73m2. Kidney failure is indicated at less than 15 mL/min/1.73m2. Performed By: #### 2 [id number] #### [facility] [address] [place] [address] Coding Summary.on 06-09-2018 Coding Summary. CODING DATE: 06/09/2018 FINAL [facility] STATUS: Home (Routine DC) PAYOR: Commercial Insurance APC DESCRIPTION 5523 Level 3 Imaging without Contrast ADMIT DX: REASON FOR VISIT DX: R09.89 Other specified symptoms and signs involving the circulatory and respiratory systems FINAL DX: PRINCIPAL: R09.89 Other specified symptoms and signs involving the circulatory and respiratory systems SECONDARY: PYMT PROC APC STAT DESCRIPTION DOCTOR NAME DATE NOTE: The code number assigned matches the documented diagnosis and / or procedure in the patient's chart. However, the narrative phrase printed from the coding software may appear abbreviated, or result in slightly different terminology. Coded By: Elisa Hua CphT Date Saved: 06/09/2018 07:37 am [facility] Vital Signs Date Time Vital Sign Value Performing Clinician Facility 06-24-2023 15:30-0500 Body height 172.72 cm Devendra [employer] Other [employer] Other 06-24-2023 15:30-0500 Body mass index (BMI) [Ratio] 38.22 kg/m2 Devendra [employer] Other [facility] Other 06-24-2023 15:30-0500 Body weight 114.04 kg Devendra Ball Other [facility] Other 06-24-2023 15:30-0500 Diastolic blood pressure 80 mm[Hg] Devendra [employer] Other [facility] Other 06-24-2023 15:30-0500 Respiratory rate 12 /min Devendra [employer] Other [facility] Other 06-24-2023 15:30-0500 Systolic blood pressure 136 mm[Hg] Devendra Ball Other [facility] Other 08-18-2019 14:32-0500 BP Diastolic 89 mm[Hg] [facility] [employer] Phone: 08-18-2019 14:32-0500 BP Systolic 167 mm[Hg] [facility] [employer] Phone: 08-18-2019 14:32-0500 Pulse (Heart Rate) 78 /min [facility] [employer] Phone: 08-18-2019 14:32-0500 Pulse Oximetry 98 % [facility] [employer] Phone: 08-18-2019 14:32-0500 Respiratory Rate 16 /min [facility] [employer] Phone: Encounters Encounter Date Encounter Type Care Provider Facility Start: 08-22-2023 End: 08-22-2023 ambulatory Devendra Carr Other [facility] Other Start: 08-22-2023 Telephone encounter Devendra [facility] Start: 07-30-2023 End: 07-30-2023 ambulatory Desmond Stoll Other [employer] Other Start: 07-30-2023 Telephone encounter Desmond Bravo [facility] Start: 07-12-2023 End: 07-12-2023 ambulatory Devendra Carr Other [facility] Other Start: 07-12-2023 Telephone encounter Devendra [facility] Start: 06-24-2023 End: 06-24-2023 ambulatory Devendra Carr Other [employer] Other Start: 06-24-2023 Encounter for genera l adult medical examination without abnormal findings Devendra Carr [facility] Start: 06-24-2023 Periodic preventive med est patient 40-64yrs Devendra Carr [facility] Start: 06-24-2023 Telephone encounter Devendra [facility] Start: 06-04-2023 End: 06-04-2023 ambulatory Devendra Carr Other [employer] Other Start: 06-04-2023 Office outpatient visit 15 minutes Devendra Carr [facility] Start: 05-20-2023 End: 05-20-2023 ambulatory Devendra Carr Other [employer] Other Start: 05-20-2023 Office outpatient visit 15 minutes [facility] Start: 06-28-2022 Encounter for genera l adult medical examination without abnormal findings DR DEVENDRA CARR [facility] Start: 06-23-2022 End: 06-24-[address] DEVENDRA CARR Facility:[facility] Start: 06-23-2022 End: 06-24-2022 Encounter for general adult medical examination without abnormal findings DR DEVENDRA CARR Facility:[facility] Start: 06-04-2021 End: 06-05-2021 ambulatory [facility]ENDRA CARR [facility] Start: 06-04-2021 End: 06-04-2021 Subsequent hospital visit by physician Devendra Carr DO Work Phone: [facility] Start: 06-04-2020 End: 06-04-2020 Subsequent hospital visit by physician Devendra Carr [facility] Start: 08-18-2019 End: 08-21-2019 Patient encounter procedure BERT WOOTEN [facility] Start: 08-18-2019 End: 08-20-2019 Subsequent hospital visit by physician [facility] Ultrasound Comment on above: Enlarged lymph node Start: 07-30-2019 End: 08-01-2019 [facility] Ultrasound Comment on above: Enlarged lymph node Start: 07-01-2019 End: 07-01-2019 Subsequent hospital visit by physician [facility] PET Scan Comment on above: Lung nodule Start: 06-12-2019 End: 06-14-2019 Subsequent hospital visit by physician [facility] Cat Scan Room [facility] CT Scan Comment on above: Incidental pulmonary nodule Start: 06-06-2019 End: 06-06-2019 Subsequent hospital visit by physician Devendra Carr [facility] Laboratory Procedures Date Procedure Procedure Detail Performing Clinician Start: 06-23-[address] BONNY CARR Comment on above: Performed By: #### [facility] #### [facility] [address] [place] [address] Dr. Yonas Ivan Start: 06-04-2021 PSA screening Devendra Carr DO Work Phone: Comment on above: The [employer] ECLIA as say is used. Results obtained with different assay methods cannot be used interchangeably. Start: 06-04-2021 Comprehensive metabo lic panel Devendra Carr DO Work Phone: Start: 06-04-2021 Lipid panel Devendra Quick all DO Work Phone: Start: 06-04-2021 PATIENT FASTING? Bonny in Bruno DO Work Phone: Start: 06-04-2020 [object Object] Randi Carr Comment on above: The [employer] ECLIA as say is used. Results obtained with different assay methods cannot be used interchangeably. Start: 06-04-2020 Comprehensive metabo lic panel Devendra Carr Work Phone: Start: 06-04-2020 Lipid panel Devendra Quick all Work Phone: Start: 06-04-2020 PATIENT FASTING? Bonny in [place] Work Phone: Start: 06-04-2020 PSA screening Devendra Carr Work Phone: Start: 08-18-2019 Bx/exc lymph node ne edle superficial BERT WOOTEN Start: 08-18-2019 Protein total xcpt refractometry urine BERT WOOTEN Start: 08-18-2019 Bx/exc lymph node ne edle superficial Bert Wooten Work Phone: Start: 08-18-2019 Level iv surg pathol ogy gross&microscopic exam BERT WOOTEN Start: 08-18-2019 Level iv surg pathol ogy gross&microscopic exam Charlie Zavala Work Phone: Start: 07-30-2019 Us lmtd joint/oth no nvasc xtr strux r-t w/img Bert Wooten MD Work Phone: Start: 07-01-[address] atten uation skull base mid-thigh Devendra Carr DO Work Phone: Start: 06-12-2019 Ct thorax w/o contra st material Devendra Carr Work Phone: Start: 06-06-2019 Assay of thyroid stimulating hormone tsh Devendra Carr Work Phone: Start: 06-06-2019 Comprehensive metabo lic panel Devendra Carr Work Phone: Start: 06-06-2019 Lipid panel Devendra piper Work Phone: Start: 06-06-2019 PATIENT FASTING? Benjam in Bruno Work Phone: Start: 06-06-2019 End: 06-06-2019 PSA screening Devendra Carr Work Phone: Comment on above: The [employer] ECLIA as say is used. Results obtained with different assay methods cannot be used interchangeably. Plan of Treatment Date Care Activity Detail Author Start: 06-06-2024 Lipid screen Lipid screen [place], [place] Start: 06-04-2021 Lipid panel Lipid screen [facility] Start: 03-15-2021 Influenza vaccination Flu vaccine (# 1) [facility] Start: 06-06-2020 Lipid panel Lipid screen [place], [place] Start: 06-06-2020 Lipid screen Lipid screen [facility] Work Phone: Start: 03-15-2020 Influenza vaccination Flu vaccine (# 1) [place], [place] Start: 03-15-2019 Influenza vaccination Flu vaccine (# 1) [place], [place] Start: 2013 Colon cancer screen colonoscopy Colon cancer screen colonoscopy [place], [place] Start: 2013 Screening for malign ant neoplasm of colon Colon cancer screen colonoscopy [place], [place] Start: 2013 Shingles Vaccine (1 of 2) Shingles Vaccine (1 of 2) [facility] Start: 2008 Screening for malign ant neoplasm of colon Colon cancer screen colonoscopy [facility] Start: 2003 Diabetes screen Diabetes screen [facility] Work Phone: Start: 1982 DTaP/Tdap/Td vaccine (1 - Tdap) DTaP/Tdap/Td vaccine (1 - Tdap) [facility] Start: 1978 HIV screen HIV screen [place], [place] Start: 1978 HIV screening HIV screen [facility] Start: 1975 COVID-19 Vaccine (1) COVID-19 Vaccin e (1) [facility] Start: 1974 DTaP/Tdap/Td vaccine (1 - Tdap) DTaP/Tdap/Td vaccine (1 - Tdap) [place], [place] Start: 1963 Hepatitis C screen Hepatitis C darin pineda [place], [place] Start: 1963 Hepatitis C screening Hepatitis C prince benitez [facility] End: 08-18-2019 Flow cytometry leukemia/lymphoma nodes or fluids Flow cytometry leukemia/lymphoma nodes or fluids Lab Routine Once for 1 Occurrences starting 08/18/2019 until 08/18/[address] [facility]: Comment on above: Once for 1 Occurrenc es starting 08/18/2019 until 08/18/2019 Flow cytometry leukemia/lymphoma nodes or fluids Flow cytometry leukemia/lymphoma nodes or fluids Lab Routine 08/18/2019 2:09 PM [facility] [employer] Phone: End: 06-04-2020 HbA1c (Bld) [Mass fraction] Hemoglobin A1C Lab Routine Once for 1 Occurrences starting 06/04/2020 until 06/04/2020 [place], [place] Comment on above: Once for 1 Occurrenc es starting 06/04/2020 until 06/04/2020 HbA1c (Bld) [Mass fraction] Hemoglobin A1C Lab Routine 06/04/2020 8:05 AM [place], [place] Immunizations Immunization Date Immunization Notes Care Provider Bin dodson 10-21-2020 COVID-19 Vaccine Pfi zer - Documentation Purposes Only Devendra Carr Other [employer] Other 09-30-2020 COVID-19 Vaccine Pfi zer - Documentation Purposes Only Devendra Carr Other [employer] Other Payers Date Payer Category Payer Unknown [employer] xxxxxxxxx 2014-Present [phone] [address] [place] [address] xxxxxxxxx [id number] 1965 Unknown [id number] 1965 Unknown [id number] 1965 Unknown [id number] 1959 Unknown [id number] Unknown [id number] Unknown [id number] Social History Date Type Detail Facility Tobacco smoking status NHIS Unknown if ever smoked [employer] Start: 1965 Sex Assigned At Not on file M Yu Rong Start: 07-30-2019 End: 08-18-2019 Tobacco smoking status NHIS Never smoker [employer] Phone: Start: 07-30-2019 End: 08-18-2019 Alcohol intake Ex-drinker (finding) [employer] Phone: Start: 07-30-2019 End: 08-18-2019 Tobacco use and exposure Never used [employer] Sex Assigned At Sex Assigned At Bir th [facility] Other Evaluation note 08-22-2023 Note Date & Type Note Facility 08-22-2023 Evaluation note Encounter Date Diagnosis Assessment Notes Aug, Hyperlipidemia type II (ICD-10 - E78.01) Aug, Hyperglycemia (ICD-10 - R73.9) [facility] Other Evaluation note 07-12-2023 Note Date & Type Note Facility 07-12-2023 Evaluation note Encounter Date Diagnosis Assessment Notes Jun, Hyperlipidemia type II (ICD-10 - E78.01) [facility] Other Evaluation note 06-24-2023 Note Date & Type Note Facility 06-24-2023 Evaluation note Encounter Date Diagnosis Assessment Notes Jun, Wellness examination (ICD-10 - Z00.00) Healthy diet and exercise. Reviewed age-appropriate preventive testing recommended. Jun, Hyperlipidemia type II (ICD-10 - E78.01) Instructed on diet and exercise with continued statin therapy.Discussed the beneficial effects of lowering cholesterol in reducing the risk for cerebrovascular and cardiovascular disease. Jun, Morbid (severe) obesity due to excess calories (ICD-10 - E66.01) This patient has been instructed on a low-fat, high-fiber diet. They are instructed to reduce calories, portion sizes and snacks. It is recommended that they exercise for 30 minutes, 3-5 times weekly. Jun, Body mass index [BMI] 38.0-38.9, adult (ICD-10 - Z68.38) Jun, Personal history of testicular cancer (ICD-10 - Z85.47) Orchiectomy left testes 2014 No s/s recurrence. No longer being followed by Urology. Jun, Hx of colonic polyp (ICD-10 - Z86.010) Due to personal hx of polyps as well as family hx of colon cancer, he is being referred for screening colonoscopy. Jun, Family history of colon cancer (ICD-10 - Z80.0) Places him at higher risk for developing CRC. Recommend screening colonoscopy, last scope in 2014. Jun, Colon cancer screening (ICD-10 - Z12.11) Asymptomatic, high risk patient. He has father w/ colon cancer and personal hx of polyps. Due to COVID pandemic, routine surveillance was not completed. He denies change in appetite, weight or bowel habits He denies melena or hematochezia Recommend referral for screening colonoscopy, previous scope was in 2014Jun, Screening PSA (prostate specific antigen) (ICD-10 - Z12.5) Yearly ALEXANDER and PSA [employer] Other Evaluation note 06-04-2023 Note Date & Type Note Facility 06-04-2023 Evaluation note Encounter Date Diagnosis Assessment Notes May, Acute bronchitis due to other specified organisms (ICD-10 - J20.8) Instructed to use Robitussin or Mucinex for cough, saline or Flonase NS for congestion, Tylenol for pain and fever. Switched to Levofloxacin due to Doryx not on health plan formulary [facility] Other Evaluation note 05-20-2023 Note Date & Type Note Facility 05-20-2023 Evaluation note Encounter Date Diagnosis Assessment Notes May, Acute bronchitis due to other specified organisms (ICD-10 - J20.8) Instructed to use Robitussin or Mucinex for cough, saline or Flonase NS for congestion, Tylenol for pain and fever. May, Morbid (severe) obesity due to excess calories (ICD-10 - E66.01) This patient has been instructed on a low-fat, high-fiber diet. They are instructed to reduce calories, portion sizes and snacks. It is recommended that they exercise for 30 minutes, 3-5 times weekly. Increases risk for respiratory complications May, Body mass index [BMI] 36.0-36.9, adult (ICD-10 - Z68.36) [facility] Other Evaluation note Note Date & Type Note Facility Evaluation note Diagnosis Lung nodule Solitary pulmonary nodule documented in this encounter [employer] Phone: Evaluation note Note Date & Type Note Facility Evaluation note Diagnosis Enlarged lymph node Enlargement of lymph nodes documented in this encounter [employer] Phone: Evaluation note Note Date & Type Note Facility Evaluation note No Information [employer] Other History general Narrative - Reported Note Date & Type Note Facility History general Narrative - Reported Type Medical History Hepatic steatosis Medical History Pulmonary nodule Medical History 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 Medical History Lipoma of left upper extremity Medical History Family history of colon cancer Medical History Idiopathic urticaria Medical History Axillary lymphadenopathy Medical History Infected sebaceous gland Medical History Hyperlipidemia type II Medical History Benign prostatic hyp erplasia with lower urinary tract symptoms Surgical History APPENDECTOMY 03/2018 Surgical History BIOPSY, LYMPH NODE, AXILLARY 2019 Surgical History COLONOSCOPY 2014 Surgical History INCISIONAL HERNIA REPAIR WITH M ESH 11/2018 Surgical History ORCHIECTOMY, LEFT 08/2014 Hospitalization History see surgical history [employer] Other Summary Purpose Family History No Family History Records FoundNo Family History Records FoundNo Family History Records FoundNo Family History Records FoundNo Family History Records FoundNo Family History Records FoundNo Family History Records Found Advance Directives Documents on File Type Date Recorded Patient Electrician Control Equipment Expl anation Advance Directives and Living Will Power of Shoe Shanker Documents on File Type Date Recorded Patient Electrician Control Equipment Expl anation Advance Directives and Living Will Power of Shoe Shanker Documents on File Type Date Recorded Patient Electrician Control Equipment Expl anation ACP-Advance Directive ACP-Power of Shoe Shanker Procedure Findings Note HNO ID: [id number] Author: Ynes Pacheco Service: General Surgery Author Type: Physician Type: Brief Op Note Filed: 11/21/2018 5:05 PM Note Text: BRIEF OPERATIVE / PROCEDURE NOTE LOG ID: [id number] SURGERY/PROCEDURE DATE: 11/21/2018 INCISION/PROCEDURE START TIME: 2:04 PM INCISION CLOSE/PROCEDURE END TIME: 4:40 PM SURGEON(S)/PROCEDURALIST(S) AND BOBBIN HANDLER(S): Surgeon(s) and Role: * Sunny Pacheco - Primary Physician Ticket Dispenser Changer: Anastasia Douglas (Pa) SURGERY/PROCEDURE(S): lap and open repair of incisional hernia with intra-abdominal implantation of mesh, #19 jose ANESTHESIA: General FINDINGS: 10 cm rlq henia incisional ESTIMATED BLOOD LOSS: 0 ml SPECIMENS: skin scar and hernia sac COMPLICATIONS: None PRE-OP/PRE-PROCEDURE DIAGNOSIS: incisional hernia POST-OP/POST-PROCEDURE DIAGNOSIS: Incisional hernia [K43.2] SIGNATURE: Sunny Pacheco MD PATIENT NAME: Agustín Lacey DATE: November 21, 2018 TIME: 4:57 PM PAGER/CONTACT #: [id number] Reason for Referral Status Reason Specialty Diagnoses / Procedures Referre d By Contact Referred To Contact [facility] Diagn[facility] Enlarged lymph node Procedures US BIOPSY LYMPH NODE Bert Wooten MD [address] [place] [address] Status Reason Specialty Diagnoses / Procedures Referre d By Contact Referred To Contact [facility] Incidental pulmonary nodule Procedures CT CHEST WO CONTRAST Bruno Devendra, DO [address] [id number] Status Reason Specialty Diagnoses / Procedures Referre d By Contact Referred To Contact [facility] Lung nodule Procedures PET CT SKULL BASE TO MID THIGH Devendra Carr, DO [address] [place] [address] Status Reason Specialty Diagnoses / Procedures Referre d By Contact Referred To Contact Open [facility] Enlarged lymph node Procedures US EXTREMITY LEFT NON VASC LIMITED HC US EXTREM LIMITED NONVASC Bert Wooten MD [address] [facility] [address] [place] [address] Reason *Waiting for appt He is being referred for screening colonoscopy Diagnosis 1 Colon cancer cheryl sanabria (Z12.11) Diagnosis 2 Hx of colonic polyp (Z86.010) Diagnosis 3 Family history of co larissa cancer (Z80.0) Referral Organization [facility] Bruno Ivy C linjaylene Referring Provider First Name Devendra Referring Provider Last Name Bruno Referring Provider Specialty Internal Me dicine Referred Organization [facility] Gastroenterolo gy Referred Provider Desmond Stoll Referred Address [address] [facility] [address] ,[place], [place],[address] Referred Provider Specialty Gastroentero logy Referral Priority Routine General Notes Mr. Lacey is belen ng referred for a screening colonoscopy. He is a asymptomatic, high risk patient with a family history for colon cancer and a personal history for polyps. He is overdue for a screening colonoscopy due to the pandemic and hesitancy of the patient to pursue screening. He denies change in appetite, weight or bowel habits. He denies abdominal pain, melena or hematochezia. Ju Ordonez 06/25/2023 04:41:08 PM >received today, referral faxed P2P Discharge Instructions * Instructions* Lois Benedict, RN - 08/18/2019 Needle Biopsy: What to Expect at Home (thyroid, neck, axilla, etc) Your Recovery During your biopsy, your doctor placed a thin needle through your skin to take a sample of tissue. This may have been done to find what is causing a lump or growth. You may find it uncomfortable to lie still. The biopsy site may be sore and tender for 1 to 2 days. This care sheet gives you a general idea about how long it will take for you to recover, but each person recovers at a different pace. Follow the steps below to feel better as quickly as possible. How can you care for yourself at home? Activity Rest when you feel tired. Getting enough sleep will help you recover. Diet You can eat your normal diet. If your stomach is upset, try bland, low-fat foods like plain rice, broiled chicken, toast, and yogurt. Medicines Your doctor will tell you if and when you can restart your medicines. He or she will also give you instructions about taking any new medicines. If you take blood thinners, such as warfarin (Coumadin), clopidogrel (Plavix), or aspirin, be sure to talk to your doctor. He or she will tell you if and when to start taking those medicines again. Make sure that you understand exactly what your doctor wants you to do. Take pain medicines exactly as directed. If the doctor gave you a prescription medicine for pain, take it as prescribed. If you are not taking a prescription pain medicine, ask your doctor if you can take an [id number] medicine. Ice may also applied to site for 15-20 minutes every hour as needed. (Place light cloth between iceand skin to prevent injury). If you think your pain medicine is making you sick to your stomach: Take your medicine after meals (unless your doctor has told you not to). Ask your doctor for a different pain medicine. Incision care Keep the biopsy site covered and dry for 24 hours. A small amount of bleeding from the biopsy site can be expected. Ask your doctor how much drainage to expect. Follow-up care is a simons part of your treatment and safety. Be sure to make and go to all appointments, and call your doctor if you are having problems. It's also a good idea to know your test resultsand keep a list of the medicines you take. When should you call for help? Call 911 anytime you think you may need emergency care. For example, call if: You have severe trouble breathing. Call your doctor now or seek immediate medical care if: You have a lot of bleeding through the bandage. You have new or worsening pain. You have symptoms of infection, such as: Increased pain, swelling, warmth, or redness. Red streaks leading from the biopsy site. Pus draining from the biopsy site. A fever. Watch closely for any changes in your health, and be sure to contact your doctor if: You're not getting better as expected. You notice a change in your voice. documented in this encounter Assessments Diagnosis Enlarged lymph node Enlargement of lymph nodes Diagnosis Incidental pulmonary nodule Solitary pulmonary nodule Additional Source Comments (unrecognized sect ion and content) No Status Records FoundNo Status Records FoundNo Status Records FoundNo Status Records FoundNo Status Records FoundNo Status Records FoundNo Status Records Found INFORMATION SOURCE (unrecogn ized section and content) DATE CREATED AUTHOR 12/05/2018 [facility] DATE CREATED AUTHOR AUTHOR'S ORGANIZ ATION 12/06/2018 [facility] DATE CREATED AUTHOR AUTHOR'S ORGANIZ ATION 12/31/2018 [facility] DATE CREATED AUTHOR AUTHOR'S ORGANIZ ATION 01/17/2019 Pravin Costa [facility] DATE CREATED AUTHOR AUTHOR'S ORGANIZ ATION 08/21/2019 [facility] DATE CREATED AUTHOR AUTHOR'S ORGANIZ ATION 06/05/2021 [facility] DATE CREATED AUTHOR AUTHOR'S ORGANIZ ATION 08/30/2022 [facility] Reason for Visit (unrecogniz ed section and content) Repeat labs Status Reason Specialty Diagnoses / Procedures Referre d By Contact Referred To Contact [facility] Diagnoses Enlarged lymph node Procedures US BIOPSY LYMPH NODE Bert Wooten MD [address] [facility] [address] [place] [address] Status Reason Specialty Diagnoses / Procedures Referre d By Contact Referred To Contact Closed Radiology Diagnoses Solitary pulmonary nodule Procedures HC CT CHEST W/O CONTRAST Devendra Carr, DO [address] [place] [address] [place] [address] Status Reason Specialty Diagnoses / Procedures Referred By Contact Referred To Contact Pending Review Radiology Diagnoses Solitary pulmonary nodule Procedures HC PET/CT SKULL BASE TO MID THIGH Devendra Carr, DO [address] [place] [address] [facility] [address] [place] [address] Status Reason Specialty Diagnoses / Procedures Referre d By Contact Referred To Contact [facility] Enlarged lymph node Procedures US EXTREMITY LEFT NON VASC LIMITED HC US EXTREM LIMITED NONVASC Bert Wooten MD [address] [facility] [address] [place] [address] Care Teams (unrecognized sec tion and content) Odd Shoe Examiner Relationship Specialty Start Date End Date Devendra Carr DO PCP - General Internal Medicine 06/06/19 FOR RECORDS PERTAINING TO PATIENTS WHO ARE OR HAVE BEEN ENROLLED IN A CHEMICAL DEPENDENCY/SUBSTANCEABUSE PROGRAM, SOME INFORMATION MAY BE OMITTED. This clinical summary was aggregated from multiple sources. Caution should be exercised in using it in the provision of clinical care. This summary normalizes information from multiple sources, and as a consequence, information in this document may materially change the coding, format and clinical context of patient data. In addition, data may be omitted in some cases. CLINICAL DECISIONS SHOULD BE BASED ON THE PRIMARY CLINICAL RECORDS. [employer]. provides no warranty or guarantee of the accuracy or completeness of information in this document.
[2023-09-28 07:09] LABS: Estimated Average Glucose 114 mg/dL; Glycohemoglobin A1C 5.6 % (4.5-6.2)
[2023-09-28 07:32] LABS: Alanine Aminotransferase 40 U/L (16-63); Chol HDL Ratio 3.4; Cholesterol 180 mg/dL (<=200); HDL Cholesterol 53 mg/dL (40-60); LDL Cholesterol Calculated 100.4 mg/dL; Triglycerides 133 mg/dL (<=150); VLDL CHOLESTEROL 26.6 mg/dL
== END 2023-09-28 06:45 | disposition home or self-care (01) ==
LOC: LAB 06:45
PROVIDERS: PCP Internal Medicine; Visit Provider Internal Medicine
DX: E78.01 Familial hypercholesterolemia (principal); R73.9 Hyperglycemia, unspecified
CPT/HCPCS: 36415; 80061; 83036; 84460

== ENCOUNTER 2024-11-28 09:16 | Outpatient (OUT) | payer OTHER, SELFPAY ==
--- OUTSIDE RECORDS SUMMARY | 2024-11-28 09:21 | XMS_ITS | CCD ---
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 Role Phone Devendra Carr Primary Care Provider [phone] BERT WOOTEN Referring Unavailable DEVENDRA CARR Primary Care Unavailable Devendra Carr Primary Care Provider Devendra Carr DO Primary Care Provider DEVENDRA CARR Referring Unavailable DEVENDRA CARR Primary Care Unavailable Devendra Carr DO Primary Care Provider DR DEVENDRA CARR Attending Unavailable BALL, DR VIDALES Consulting Unavailable BALL, DR VIDALES Primary Care Unavailable TRINY, DR VIDALES Admitting Unavailable Devendra Carr Unavailable Desmond Stoll Unavailable Allergies Allergy Classification Reported Allergen(s) Allergy Type Date of Onset Reaction(s) Facility (4 sources) Penicillins Propensity to adverse reactions to drug 0 [facility] Phone: (1 source) Penicillins Drug allergy (disorder) 5 [facility] Repository (7 sources) Substance with penicillin structure and antibacterial mechanism of action (substance) Drug allergy 5 Unknown imgix Other Medications Current Medications Medication Drug Class(es) Dates Sig (Normalized) Sig (Original) amLODIPine 5 mg oral tablet (1 source) Dihydropyridine Calcium Channel Toñito Start: 11-17-2024 take 1 tablet by mouth once daily Amlodipine 5 mg tablet Active 5 MG PO Daily November 17, 2024 12:00am atorvastatin 40 mg oral tablet (17 sources) HMG-CoA Reductase Inhibitor Start: 10-21-2024 take 1 tablet by mouth once daily Atorvastatin 40 mg tablet Active 40 MG PO Daily October 21, 2024 9:26am Start: 03-03-2024 End: 10-21-2024 take 1 tablet by mouth once daily Atorvastatin 40 mg tablet Discontinued 0 .ROUTE .COMPLEX March 03, 2024 1:11pm October 21, 2024 9:27am TAKE 1 TABLET BY MOUTH EVERY DAY Start: 11-04-2023 End: 03-03-2024 take 1 tablet by mouth once daily Atorvastatin 40 mg tablet Discontinued 40 MG PO Daily November 04, 2023 12:00am March 03, 2024 1:11pm Start: 07-20-2019 atorvastatin ( LIPITOR) 40 MG tablet take 5 tablets by mo [facility] every twenty-four hours Atorvastatin Calcium 40 MG 5 mL Orally Once a day for 30 days Active take 1 tablet by john paul every twenty-four hours Atorvastatin Calcium 80 MG 1 tablet Orally Once a day Active cyproheptadine hydrochloride 4 mg oral tablet (11 sources) Start: 07-31-2018 take 1 tablet by mouth three times daily as needed cyproheptadine (PERIACTIN) 4 MG tablet TAKE 1/2 TO 1 TABLET BY MOUTH THREE TIMES DAILY NEEDED FOR ITCHING 0 07/31/2018 Active take 1 tablet by john paul once daily at bedtime Cyproheptadine HCl 4 MG 1 tablet Orally qhs Not-Taking/PRN loratadine 10 mg oral tablet (11 sources) Start: 11-04-2023 take 1 tablet by mouth once daily Loratadine (Claritin) 10 mg tablet Active 10 MG PO Daily November 04, 2023 12:00am take 1 tablet by john paul every twenty-four hours Claritin 10 MG 1 tablet Orally Once a day Active Completed/Discontinued Medications Medication Drug Class(es) Dates Sig (Normalized) Sig (Original) azithromycin 250 mg oral tablet (7 sources) Macrolide Antimicrobial Start: 3 Azithromycin 250 MG as directed Orally daily for 5 days May, Not-Taking/PRN doxycycline hyclate 100 mg oral capsule (6 sources) Tetracycline-class Drug Start: 3 take 1 capsule by mouth every twelve hours Doxycycline Hyclate 100 MG 1 capsule Orally Twice a day for 7 days May, Not-Taking/PRN fludeoxyglucose F 18 injection 12.46 millicurie (1 source) Start: 9 End: 9 fludeoxyglucose F 18 injection 12.46 millicurie levoFLOXacin 500 mg oral tablet (6 sources) Quinolone Antimicrobial Start: 3 take 1 tablet by mouth every twenty-four hours levoFLOXacin 500 MG 1 tablet Orally Once a day for 7 days May, Not-Taking/PRN 10 ml lidocaine hydrochloride 10 mg/ml injection (1 source) Antiarrhythmic, Amide Local Anesthetic Start: 0 End: 0 lidocaine PF 1 % injection methylPREDNISolone 4 mg oral tablet (4 sources) Corticosteroid Start: 4 End: 4 take 1 tablet by mouth once Methylprednisolone (Medrol (Ward)) 4 mg tablets,dose pack Discontinued 0 PO per package directions 02 01November 04, 2023 12:00am December 11, 2023 4:30pm PO PER PKG DIR predniSONE 20 mg oral tablet (6 sources) Start: 4 End: 5 Prednisone 20 mg tablet Discontinued 20 MG PO As Directed 01 04December 11, 2023 4:31pm November 17, 2024 3:34pm 1 tab tid w/ food x 3 days, then bid w/ food x 3 days, then qd w/ food x 3 days Suprep Bowel Prep . (7 sources) Start: 5 Suprep Bowel Prep . as directed Orally [...] Hyperglycemia, unspecified Episodic Disorders of lipid metabolism (12 sources) Pure hypercholesterolemi a; 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 Essential hypertension (2 sources) Hypertensive disorder; Translations: [Essential (primary) hypertension] 11-17-2024 Chronic Hyperplasia of prostate (7 sources) Lower urinary tract symptoms due to benign prostatic hypertrophy; Translations: [Benign prostatic hyperplasia with lower urinary tract symptoms] Chronic Joint disorders and dislocations; trauma-related (4 sources) Derangement of left knee; Translations: [Unspecified internal derangement of left knee] 12-11-2023 Chronic Lymphadenitis (9 sources) Lymphadenopathy; Translations: [Axillary [...] lung; Translations: [Solitary pulmonary nodule] Episodic Other nervous system disorders (3 sources) Paresthesia; Translations: [Paresthesia of skin] 12-11-2023 Episodic Other nervous system disorders (3 sources) Paresthesia of skin; Translations: [Disturbance of skin sensation] 12-11-2023 Episodic Other non-traumatic joint disorders (6 sources) Pain in left knee; Translations: [Left knee pain] 12-11-2023 Episodic Other nutritional; endocrine; and metabolic disorders [...] mass index (BMI) 38.0-38.9, adult Chronic Other nutritional; endocrine; and metabolic disorders (1 source) Obesity; Translations: [Obesity, unspecified] 11-17-2024 Chronic Other nutritional; endocrine; and metabolic disorders (1 source) Obesity, unspecified; Translations: [Obesity, unspecified] 11-17-2024 Chronic Other screening for suspected conditions (not mental disorders or infectious disease) (6 sources) Encounter for screening for malignant neoplasm [...] of malignant neoplasm of digestive organs Episodic Sprains and strains (5 sources) Strain of knee; Translations: [Strain of unspecified muscle(s) and tendon(s) at lower leg level, left leg, initial encounter] 11-04-2023 Episodic Past or Other Problems Problem Classification Problem Date Documented Da te Episodic/Chronic Other lower respiratory disease (1 source) Solitary nodule of lung; Translations: [Incidental pulmonary nodule] Episodic Other lower respiratory disease (1 source) Lung mass Episodic Results Test Name Value Interpretation Reference Range Facility Cholesterol in LDL Calc [Mas s/Vol]on 09-28-2023 Cholesterol in LDL [Mass/Vol] 100.4 mg/dL [facility] Comment on above: <100 mg/dl [id number] 0-129 mg/dl NEAR OR ABOVE [id number] mg/dl BORDERLINE [id number] mg/dl HIGH>190 mg/dl VERY HIGH Cholesterol in VLDL Calc [Ma ss/Vol]on 09-28-2023 Cholesterol in VLDL [Mass/Vol] 26.6 mg/dL [facility] Glucose mean value [Mass/vol ume] in Blood Estimated from glycated hemoglobinon 09-28-2023 Average glucose Estimated from glycated hemoglobin (Bld) [Mass/Vol] 114 mg/dL [facility] Laboratory - Chemistry and C hemistry - challengeon 09-28-2023 ALT [Catalytic activity/Vol] 40 U/L 16-63 [facility] Cholesterol [Mass/Vol] 180 mg/dL <=200 [facility] Cholesterol in HDL [Mass/Vol] 53 mg/dL 40-60 [facility] Comment on above: > or =60 mg/dl - LOW CARDIOVASCULAR RISK<40 mg/dl - HIGH CARDIOVASCULAR RISK Triglyceride [Mass/Vol] 133 mg/dL <=150 [facility] Laboratory - Hematology and Cell countson 09-28-2023 HbA1c (Bld) [Mass fraction] 5.6 % 4.5-6.2 [facility] Comment on above: ADA RECOMMENDED LIMI T 4.0 - 6.0ADA THERAPEUTIC TARGET < 7.0ACTION SUGGESTED> 7.0 Serum or plasma total choles terol/high density lipoprotein (HDL) cholesterol mass cathryn 09-28-2023 Cholesterol.total/C holesterol in HDL [Mass ratio] 3.4 {ratio} [facility] Comment on above: 3.3 - 4.4 LOW RISK4. 4 - 7.1 AVERAGE RISK7.1 - 11.0 MODERATE RISK>11.0 HIGH RISK CBC AUTO DIFFon 06-23-2022 BASO # 0.1 103/ul Normal 0.0-0.1 [facility] Comment on above: Performed By: #### C BC #### [facility] [address] [place] [address] Dr. Yonas Ivan Basophils/100 WBC (Bld) 1.8 % Normal 0.2-2.0 [facility] Comment on above: Performed By: #### C BC #### [facility] [address] [address] [address] Yonas Ivan EO # 0.2 103/ul Normal 0.0-0.7 [facility] Comment on above: Performed By: #### C BC #### [facility] [address] [address] [address] Yonas Ivan Eosinophils/100 WBC (Bld) 2.7 % Normal 0.9-7.0 [facility] Comment on above: Performed By: #### C BC #### [facility] [address] [address] [address] Yonas Ivan Erythrocyte distribution width (RBC) [Ratio] 13.1 % Normal 11.0-15.0 [facility] Comment on above: Performed By: #### C BC #### [facility] [address] [address] [address] Yonas Ivan Hematocrit (Bld) [Volume fraction] 46.8 % Normal 42.0-54.0 [facility] Comment on above: Performed By: #### C BC #### [facility] [address] [place] [address] Dr. Yonas Ivan Hemoglobin (Bld) [Mass/Vol] 15.9 g/dL Normal 14.0-18.0 [facility] Comment on above: Performed By: #### C BC #### [facility] [address] [place] [address] Dr. Yonas Ivan IG # 0.09 10e3/ul Critically high 0.00-0.03 [facility] Comment on above: Performed By: #### C BC #### [facility] [address] [place] [address] Dr. Yoans Iavn IG % 1.2 % Critically high 0.0-0.5 [facility] Comment on above: Performed By: #### C BC #### [facility] [address] [place] [address] Dr. Yonas Ivan LYMPH # 1.5 103/ul Normal 1.2-3.8 [facility] Comment on above: Performed By: #### C BC #### [facility] [address] [place] [address] Dr. Yonas Ivan Lymphocytes/100 WBC (Bld) 21.2 % Normal 20.5-60.0 [facility] Comment on above: Performed By: #### C BC #### [facility] [address] [place] [address] Dr. Yonas Ivan MANUAL DIFF REQ NO Normal [facility] Comment on above: Performed By: #### C BC #### [facility] [address] [place] [address] Dr. Yonas Ivan MCH (RBC) [Entitic mass] 29.3 pg Normal 25.9-34.0 [facility] Comment on above: Performed By: #### C BC #### [facility] [address] [place] [address] Dr. Yonas Ivan MCHC (RBC) [Mass/Vol] 34.0 g/dL Normal 29.9-35.2 [facility] Comment on above: Performed By: #### C BC #### [facility] [address] [address] [address] Yonas Ivan MCV (RBC) [Entitic vol] 86.2 fL Normal 80.0-94.0 [facility] Comment on above: Performed By: #### C BC #### [facility] [address] [address] [address] Yonas Ivan MONO # 0.6 103/ul Normal 0.3-0.8 [facility] Comment on above: Performed By: #### C BC #### [facility] [address] [address] [address] Yonas Ivan Monocytes/100 WBC (Bld) 8.0 % Normal 1.7-12.0 [facility] Comment on above: Performed By: #### C BC #### [facility] [address] [place] [address] Dr. Yonas Ivan NEUT # 4.7 103/ul Normal 1.4-6.5 [facility] Comment on above: Performed By: #### C BC #### [facility] [address] [place] [address] Dr. Yonas Ivan Neutrophils/100 WBC (Bld) 65.1 % Normal 43.0-75.0 [facility] Comment on above: Performed By: #### C BC #### [facility] [address] [place] [address] Dr. Yonas Ivan Platelet mean volume (Bld) [Entitic vol] 9.0 fL Critically low 9.5-13.5 [facility] Comment on above: Performed By: #### C BC #### [facility] [address] [place] [address] Dr. Yonas Ivan PLT 173 103/ul Normal 150-450 [facility] Comment on above: Performed By: #### C BC #### [facility] [address] [place] [address] Dr. Yonas Ivan RBC 5.43 106/ul Normal 4.70-6.10 [facility] Comment on above: Performed By: #### C BC #### [facility] [address] [place] [address] Dr. Yonas Ivan WBC 7.3 103/ul Normal 4.0-11.0 [facility] Comment on above: Performed By: #### C BC #### [facility] [address] [address] [address] Yonas Ivan LIPID PROFILEon 06-23-2022 CHOL-HDL RATIO NORM SEE BELOW Normal [facility] Comment on above: Result Comment: 3.3 - 4.4 LOW RISK 4.4 - 7.1 AVERAGE RISK 7.1 - 11.0 MODERATE RISK >11.0 HIGH RISK Performed By: #### L IPID, CMP #### [facility] [address] [address] [address] Yonas Ivan Cholesterol [Mass/Vol] 256 mg/dL Critically high <=200 [facility] Comment on above: Performed By: #### L IPID, CMP #### [facility] [address] [address] [address] Yonas Ivan Cholesterol in HDL [Mass/Vol] 52 mg/dL Normal 40-60 [facility] Comment on above: Performed By: #### L IPID, CMP #### [facility] [address] [address] [address] Yonas Ivan Cholesterol in LDL [Mass/Vol] 169.8 mg/dL Normal [facility] Comment on above: Performed By: #### L IPID, CMP #### [facility] [address] [address] [address] Yonas Ivan Cholesterol.total/C holesterol in HDL [Mass ratio] 4.9 {ratio} Normal [facility] Comment on above: Performed By: #### L IPID, CMP #### [facility] [address] [address] [address] Yonas Ivan HDL NORMAL > or = 60 mg/dl - LO W CARDIOVASCULAR RISK <40 mg/dl - HIGH CARDIOVASCULAR RISK Normal [facility] Comment on above: Performed By: #### L IPID, CMP #### [facility] [address] [address] [address] Yonas Ivan LDL CALC NORMAL SEE BELOW Normal [facility] Comment on above: Result Comment: <100 mg/dl OPTIMAL 100 - 129 mg/dl NEAR OR ABOVE OPTIMAL 130 - 159 mg/dl BORDERLINE HIGH 160 - 189 mg/dl HIGH >190 mg/dl VERY HIGH Performed By: #### L IPID, CMP #### [facility] [address] [address] [address] Yonas Ivan Triglyceride [Mass/Vol] 171 mg/dL Critically high <=150 [facility] Comment on above: Performed By: #### L IPID, CMP #### [facility] [address] [address] [address] Yonas Ivan VLDL CALC 34.2 mg/dL Normal [facility] Comment on above: Performed By: #### L IPID, CMP #### [facility] [address] [place] [address] Dr. Yonas Ivan PROF 14(COMP METB)on 022 Albumin [Mass/Vol] 4.0 g/dL Normal 3.4-5.0 [facility] Comment on above: Performed By: #### L IPID, CMP #### [facility] [address] [place] [address] Dr. Yonas Ivan Albumin/Globulin [Mass ratio] 1.1 {ratio} Normal [facility] Comment on above: Performed By: #### L IPID, CMP #### [facility] [address] [place] [address] Dr. Yonas Ivan ALP [Catalytic activity/Vol] 67 U/L Normal 46-116 [facility] Comment on above: Performed By: #### L IPID, CMP #### [facility] [address] [place] [address] Dr. Yonas Ivan ALT [Catalytic activity/Vol] 29 U/L Normal 16-63 [facility] Comment on above: Performed By: #### L IPID, CMP #### [facility] [address] [place] [address] Dr. Yonas Ivan Anion gap [Moles/Vol] 9.8 mmol/L Normal [facility] Comment on above: Performed By: #### L IPID, CMP #### [facility] [address] [address] [address] Yonas Ivan AST [Catalytic activity/Vol] 22 U/L Normal 15-37 [facility] Comment on above: Performed By: #### L IPID, CMP #### [facility] [address] [address] [address] Yonas Ivan Bilirubin [Mass/Vol] 0.6 mg/dL Normal 0.2-1.0 [facility] Comment on above: Performed By: #### L IPID, CMP #### [facility] [address] [address] [address] Yonas Ivan Calcium [Mass/Vol] 9.4 mg/dL Normal 8.5-10.1 [facility] Comment on above: Performed By: #### L IPID, CMP #### [facility] [address] [place] [address] Dr. Yonas Ivan Chloride [Moles/Vol] 101 mmol/L Normal 98-107 [facility] Comment on above: Performed By: #### L IPID, CMP #### [facility] [address] [place] [address] Dr. Yonas Ivan CO2 [Moles/Vol] 33.5 mmol/L Critically high 21.0-32.0 [facility] Comment on above: Performed By: #### L IPID, CMP #### [facility] [address] [place] [address] Dr. Yonas Ivan Creatinine [Mass/Vol] 0.97 mg/dL Normal 0.70-1.30 [facility] Comment on above: Performed By: #### L IPID, CMP #### [facility] [address] [place] [address] Dr. Yonas Ivan EGFR-AF ARMENIAN >60 Normal >=[address] [facility] Comment on above: Performed By: #### L IPID, CMP #### [facility] [address] [place] [address] Dr. Yonas Ivan EGFR-NON AF ARMENIAN >60 Normal >=60 [facility] Comment on above: Performed By: #### L IPID, CMP #### [facility] [address] [address] [address] Yonas Ivan Globulin (S) [Mass/Vol] 3.7 g/dL Normal [facility] Comment on above: Performed By: #### L IPID, CMP #### [facility] [address] [address] [address] Yonas Ivan Glucose [Mass/Vol] 105 mg/dL Normal 74-106 [facility] Comment on above: Performed By: #### L IPID, CMP #### [facility] [address] [place] [address] Dr. Yonas Ivan Potassium [Moles/Vol] 4.3 mmol/L Normal 3.5-5.1 [facility] Comment on above: Performed By: #### L IPID, CMP #### [facility] [address] [place] [address] Dr. Yonas Ivan Protein [Mass/Vol] 7.7 g/dL Normal 6.4-8.2 [facility] Comment on above: Performed By: #### L IPID, CMP #### [facility] [address] [place] [address] Dr. Yonas Ivan Sodium [Moles/Vol] 140 mmol/L Normal 136-145 [facility] Comment on above: Performed By: #### L IPID, CMP #### [facility] [address] [place] [address] Dr. Yonas Ivan Urea nitrogen [Mass/Vol] 13.0 mg/dL Normal 7.0-18.0 [facility] Comment on above: Performed By: #### L IPID, CMP #### [facility] [address] [place] [address] Dr. Yonas Ivan Urea nitrogen/Creatinine [Mass ratio] 13.4 mg/mg Normal [facility] Comment on above: Performed By: #### L IPID, CMP #### [facility] [address] [place] [address] Dr. Yonas Ivan PSA, Screeningon 06-05-2021 Prostatic Spec. Ag 1.30 ug/L Normal <4.1 [facility] Comment on above: Result Comment: The [employer] ECLIA assay is used. Results obtained with different assay methods cannot be used interchangeably. Performed By: #### C P, ZFAST, CDP #### [facility] [address] [place] [address] Microbiology Quality Control Technician: Leo Barnes MD #### PSAS, LIPR #### [facility] [address] [place] [address] Microbiology Quality Control Technician: Al Arriaga MD CBC Auto Differentialon 11-2 Absolute Eos # 0.20 [facility] th Absolute Immature Granulocyte NOT REPORTED [facility] Absolute Lymph # 1.30 [facility] He alth Absolute [place] [facility] Basophils (Bld) [#/Vol] 0.10 10*3/uL [facility] Basophils/100 WBC (Bld) 1 % 0 - 2 % [facility] [place] Differential Type YES [facility] ealt Eosinophils/100 WBC (Bld) 3 % 0 - 5 % [facility] Hematocrit (Bld) [Volume fraction] 44.8 % 41 - 53 % [facility] Hemoglobin.gastroin testinal spec 1 Ql (Stl) 15.4 g/dL 13.5 - 17.5 g/dL [facility] [place] Immature Granulocytes NOT REPORTED 0 % [facility] [place] Lymphocytes/100 WBC (Bld) 18 % 13 - 44 % [facility] MCH (RBC) [Entitic mass] 29.8 pg 26 - 34 pg [facility] MCHC (RBC) [Mass/Vol] 34.3 g/dL 31 - 37 g/dL [facility] MCV (RBC) [Entitic vol] 87.0 fL 80 - 100 fL [facility] Monocytes/100 WBC (Bld) 7 % 5 - 9 % [facility] [place] NRBC Automated NOT REPORTED per 100 WBC [facility] ealt Platelet distribution width (Bld) [Ratio] 13.5 % 12.1 - 15.2 % [facility] [place] Platelet Estimate NOT REPORTED [facility] [place] Platelet mean volume (Bld) [Entitic vol] NOT REPORTED 6.0 - 12.0 fL [facility] [place] Platelets (Bld) [#/Vol] 218 10*3/uL [facility] [place] RBC (Bld) [#/Vol] 5.15 10*6/uL 4.5 - 5.9 m/uL M [facility] RBC (Bld) [#/Vol] NOT REPORTED [facility] Segmented neutrophils/100 WBC (Bld) 71 % 39 - 75 % [facility] Segs [facility].40 [facility] [#/Vol] 7.5 10*3/uL [facility] WBC (Bld) [#/Vol] NOT REPORTED [facility] CBC with Diffon 06-04-2021 Abs. Basophil 0.10 k/uL Normal 0.0-0.2 [facility] Comment on above: Performed By: #### C P, ZFAST, CDP #### [facility] [address] [id number] Microbiology Quality Control Technician: Loe Barnes MD #### PSAS, LIPR #### [place] [id number] Microbiology Quality Control Technician: Al Arriaga MD Abs.Neutrophil (Seg) 5.40 k/uL Normal 2.1-6.5 [facility] Comment on above: Performed By: #### C P, ZFAST, CDP #### [facility] [address] [place] [address] Microbiology Quality Control Technician: Leo Barnes MD #### PSAS, LIPR #### [place] [phone] Microbiology Quality Control Technician: Al Arriaga MD Auto Diff Performed YES Normal [facility] Comment on above: Performed By: #### C P, ZFAST, CDP #### [facility] [address] [place] [phone] Microbiology Quality Control Technician: Leo Barnes MD #### PSAS, LIPR #### [facility] [address] [place] [address] [phone] Microbiology Quality Control Technician: Al Arriaga MD Basophils/100 WBC (Bld) 1 % Normal 0-2 [facility] Comment on above: Performed By: #### C P, ZFAST, CDP #### [facility] [address] [place], [place] [phone] Microbiology Quality Control Technician: Leo Barnes MD #### PSAS, LIPR #### [address] [phone] Microbiology Quality Control Technician: Al Arriaga MD Eosinophils (Bld) [#/Vol] 0.20 10*3/uL Normal 0.0-0.4 [facility] Comment on above: Performed By: #### C P, ZFAST, CDP #### [facility] [address] [place], [place] [phone] Microbiology Quality Control Technician: Leo Barnes MD #### PSAS, LIPR #### [address] [phone] Microbiology Quality Control Technician: Al Arriaga MD Eosinophils/100 WBC (Bld) 3 % Normal 0-5 [facility] Comment on above: Performed By: #### C P, ZFAST, CDP #### [facility] [address] [place] [address] Microbiology Quality Control Technician: Leo Barnes MD #### PSAS, LIPR #### [address] [phone] Microbiology Quality Control Technician: Al Arriaga MD Erythrocyte distribution width (RBC) [Ratio] 13.5 % Normal 12.1-15.2 [facility] Comment on above: Performed By: #### C P, ZFAST, CDP #### [facility] [address] [place], [place] [phone] Microbiology Quality Control Technician: Leo Barnes MD #### PSAS, LIPR #### [address] [phone] Microbiology Quality Control Technician: Al Arriaga MD Hematocrit (Bld) [Volume fraction] 44.8 % Normal 41-53 [facility] Comment on above: Performed By: #### C P, ZFAST, CDP #### [facility] [address] [place], [place] [phone] Microbiology Quality Control Technician: Leo Barnes MD #### PSAS, LIPR #### [address] [phone] Microbiology Quality Control Technician: Al Arriaga MD Hemoglobin (Bld) [Mass/Vol] 15.4 g/dL Normal 13.5-17.5 [facility] Comment on above: Performed By: #### C P, ZFAST, CDP #### [facility] [address] [place] [address] Microbiology Quality Control Technician: Leo Barnes MD #### PSAS, LIPR #### [address] [phone] Microbiology Quality Control Technician: Al Arriaga MD Lymphocytes (Bld) [#/Vol] 1.30 10*3/uL Normal 1.0-4.8 [facility] Comment on above: Performed By: #### C P, ZFAST, CDP #### [facility] [address] [place] [address] Microbiology Quality Control Technician: Leo Barnes MD #### PSANoris, LIPR #### [address] [address] Microbiology Quality Control Technician: Al Arriaga MD Lymphocytes/100 WBC (Bld) 18 % Normal 13-44 [facility] Comment on above: Performed By: #### C P, ZFAST, CDP #### [facility] [address] [place], [place] [phone] Microbiology Quality Control Technician: Leo Barnes MD #### PSAS, LIPR #### [address] [address] Microbiology Quality Control Technician: Al Arriaga MD MCH (RBC) [Entitic mass] 29.8 pg Normal 26-34 [facility] Comment on above: Performed By: #### C P, ZFAST, CDP #### [facility] [address] [place] [address] Microbiology Quality Control Technician: Leo Barnes MD #### PSAS, LIPR #### [address] [phone] Microbiology Quality Control Technician: Al Arriaga MD MCHC (RBC) [Mass/Vol] 34.3 g/dL Normal 31-37 [facility] Comment on above: Performed By: #### C P, ZFAST, CDP #### [facility] [address] [place] [address] Microbiology Quality Control Technician: Leo Barnes MD #### PSAS, LIPR #### [place] [phone] Microbiology Quality Control Technician: Al Arriaga MD MCV (RBC) [Entitic vol] 87.0 fL Normal 80-100 [facility] Comment on above: Performed By: #### Len P, ZFAST, CDP #### [facility] [address] [place] [address] Microbiology Quality Control Technician: Leo Barnes MD #### PSANoris, LIPR #### [address] [phone] Microbiology Quality Control Technician: Al Arriaga MD Monocytes (Bld) [#/Vol] 0.50 10*3/uL Normal 0.0-1.0 [facility] Comment on above: Performed By: #### C P, ZFAST, CDP #### [facility] [address] [place] [address] Microbiology Quality Control Technician: Leo Barnes MD #### PSAS, LIPR #### [address] [phone] Microbiology Quality Control Technician: Al Arriaga MD Monocytes/100 WBC (Bld) 7 % Normal 5-9 [facility] Comment on above: Performed By: #### C P, ZFAST, CDP #### [facility] [address] [place] [address] Microbiology Quality Control Technician: Leo Barnes MD #### PSAS, LIPR #### [place] [phone] [place], [place] 7030008 Microbiology Quality Control Technician: Al Arriaga MD Neutrophil (Seg) 71 % Normal 39-75 [facility] Comment on above: Performed By: #### C P, ZFAST, CDP #### [facility] [address] [place] [address] Microbiology Quality Control Technician: Leo Barnes MD #### PSAS, LIPR #### [address] [phone] Microbiology Quality Control Technician: Al Arriaga MD Platelets (Bld) [#/Vol] 218 10*3/uL Normal 140-450 [facility] Comment on above: Performed By: #### C P, ZFAST, CDP #### [facility] [address] [place] [address] Microbiology Quality Control Technician: Leo Barnes MD #### PSAS, LIPR #### [place] [phone] [place], [place] [phone] Microbiology Quality Control Technician: Al Arriaga MD RBC (Bld) [#/Vol] 5.15 10*6/uL Normal 4.5-5.9 [facility] Comment on above: Performed By: #### C P, ZFAST, CDP #### [facility] [address] [place] [address] Microbiology Quality Control Technician: Leo Barnes MD #### PSAS, LIPR #### [place] [id number] [place], [place] [phone] Microbiology Quality Control Technician: lA Arriaga MD WBC (Bld) [#/Vol] 7.5 10*3/uL Normal 3.5-11.0 [facility] Comment on above: Performed By: #### C P, ZFAST, CDP #### [facility] [address] [place], [place] [phone] Microbiology Quality Control Technician: Leo Barnes MD #### PSAS, LIPR #### [address] [address] Microbiology Quality Control Technician: Al Arriaga MD Abs.Imm.Granulocyte NOT REPORTED Normal 0.00-0.30 [facility] Comment on above: Performed By: #### C P, ZFAST, CDP #### [facility] [address] [place], [place] [phone] Microbiology Quality Control Technician: Leo Barnes MD #### PSAS, LIPR #### [address] [address] Microbiology Quality Control Technician: Al Arriaga MD Immature Granulocyte NOT REPORTED Normal 0 [facility] Comment on above: Performed By: #### C P, ZFAST, CDP #### [facility] [address] [place], [place] [phone] Microbiology Quality Control Technician: Leo Barnes MD #### PSAS, LIPR #### [address] [address] Microbiology Quality Control Technician: Al Arriaga MD MPV NOT REPORTED Normal 6.0-12.0 [facility] Comment on above: Performed By: #### C P, ZFAST, CDP #### [facility] [address] [place] [address] Microbiology Quality Control Technician: Leo Barnes MD #### PSAS, LIPR #### [address] [address] Microbiology Quality Control Technician: Al Arriaga MD NRBC Automated NOT REPORTED Normal [facility] Comment on above: Performed By: #### C P, ZFAST, CDP #### [facility] [address] [place], [place] [phone] Microbiology Quality Control Technician: Leo Barnes MD #### PSAS, LIPR #### [facility] [address] [place] [address] Microbiology Quality Control Technician: Al Arriaga MD Platelet Comment NOT REPORTED Normal [facility] Comment on above: Performed By: #### C P, ZFAST, CDP #### [facility] [address] [place] [address] Microbiology Quality Control Technician: Leo Barnes MD #### PSAS, LIPR #### [address] [address] Microbiology Quality Control Technician: Al Arriaga MD RBC morphology finding Nom (Bld) NOT REPORTED Normal [facility] Comment on above: Performed By: #### C P, ZFAST, CDP #### [facility] [address] [place] [address] Microbiology Quality Control Technician: Leo Barnes MD #### PSAS, LIPR #### [facility] [address] [place] [phone] Microbiology Quality Control Technician: Al Arriaga MD WBC Morphology NOT REPORTED Normal [facility] Comment on above: Performed By: #### C P, ZFAST, CDP #### [facility] [address] [place], [place] [phone] Microbiology Quality Control Technician: Leo Barnes MD #### PSAS, LIPR #### [address] [address] Microbiology Quality Control Technician: Al Arriaga MD Comp Metabolic Profon 2020 (cont.) Normal [facility] Comment on above: Result Comment: Aver age GFR for 50-59 years old: 93 mL/min/1.73sq m Chronic Kidney Disease: <60 mL/min/1.73sq m Kidney failure: <15 mL/min/1.73sq m eGFR calculated using average adult body mass. Additional eGFR calculator available at: http://www.[employer].ecoInsight/multiple_crcl_2012.htm Performed By: #### C P, TEENA, CDP #### [facility] [address] [place], [place] [phone] Microbiology Quality Control Technician: Leo Barnes MD #### PSANoris, LIPR #### [facility] [address] [place] [address] Microbiology Quality Control Technician: Al Arriaga MD Albumin [Mass/Vol] 4.5 g/dL Normal 3.5-5.2 [facility] Comment on above: Performed By: #### TEENA Carrillo, CDP #### [facility] [address] [place], [place] [phone] Microbiology Quality Control Technician: Leo Barnes MD #### PSANoris, LIPR #### [address] [address] Microbiology Quality Control Technician: Al Arriaga MD Alkaline Phos 66 U/L Normal 40-129 [facility] Comment on above: Performed By: #### KOMAL CarrilloAST, CDP #### [facility] [address] [place], [place] [phone] Microbiology Quality Control Technician: Leo Barnes MD #### PSANoris, LIPR #### [facility] [address] [place] [address] Microbiology Quality Control Technician: Al Arriaga MD ALT [Catalytic activity/Vol] 21 U/L Normal 5-41 [facility] Comment on above: Performed By: #### Len PTEENA, CDP #### [facility] [address] [place], [place] [phone] Microbiology Quality Control Technician: Leo Barnes MD #### PSANoris, LIPR #### [address] [address] Microbiology Quality Control Technician: Al Arriaga MD Anion gap [Moles/Vol] 7 mmol/L Low 9-17 [facility] Comment on above: Performed By: #### C P, ZFAST, CDP #### [facility] [address] [place] [address] Microbiology Quality Control Technician: Leo Barnes MD #### PSAS, LIPR #### [address] [address] Microbiology Quality Control Technician: Al Arriaga MD AST [Catalytic activity/Vol] 19 U/L Normal <40 [facility] Comment on above: Performed By: #### C P, ZFAST, CDP #### [facility] [address] [place] [address] Microbiology Quality Control Technician: Leo Barnes MD #### PSAS, LIPR #### [address] [address] Microbiology Quality Control Technician: Al Arriaga MD Bilirubin [Mass/Vol] 0.60 mg/dL Normal 0.30-1.20 [facility] Comment on above: Performed By: #### C P, ZFAST, CDP #### [facility] [address] [place] [address] Microbiology Quality Control Technician: Leo Barnes MD #### PSAS, LIPR #### [address] [address] Microbiology Quality Control Technician: Al Arriaga MD BUN/CRE Ratio 19 Normal 9-20 [facility] Comment on above: Performed By: #### C P, ZFAST, CDP #### [facility] [address] [place] [address] Microbiology Quality Control Technician: Leo Barnes MD #### PSAS, LIPR #### [address] [address] Microbiology Quality Control Technician: Al Arriaga MD Calcium [Mass/Vol] 10.0 mg/dL Normal 8.6-10.4 [facility] Comment on above: Performed By: #### Len P, ZFAST, CDP #### [facility] [address] [place], [place] [phone] Microbiology Quality Control Technician: Leo Barnes MD #### PSAS, LIPR #### [address] [phone] Microbiology Quality Control Technician: Al Arriaga MD Chloride [Moles/Vol] 103 mmol/L Normal 98-107 [facility] Comment on above: Performed By: #### Len P ZFAST, CDP #### [facility] [address] [place], [place] [phone] Microbiology Quality Control Technician: Leo Barnes MD #### MARYLU, LIPR #### [address] [phone] Microbiology Quality Control Technician: Al Arriaga MD CO2 [Moles/Vol] 30 mmol/L Normal 20-31 [facility] Comment on above: Performed By: #### Len P ZFAST, CDP #### [facility] [address] [place], [place] [phone] Microbiology Quality Control Technician: Leo Barnes MD #### MARYLU, LIPR #### [address] [phone] Microbiology Quality Control Technician: Al Arriaga MD Creatinine [Mass/Vol] 0.90 mg/dL Normal 0.70-1.20 [facility] Comment on above: Performed By: #### Len P, ZFAST, CDP #### [facility] [address] [place], [place] [phone] Microbiology Quality Control Technician: Leo Barnes MD #### MARYLU, LIPR #### [address] [phone] Microbiology Quality Control Technician: Al Arriaga MD GFR, Amer >60 Normal >60 [facility] Comment on above: Performed By: #### C P, ZFAST, CDP #### [facility] [address] [place], [place] [phone] Microbiology Quality Control Technician: Leo Barnes MD #### PSAS, LIPR #### [address] [phone] Microbiology Quality Control Technician: Al Arriaga MD GFR,non Amer >60 Normal >60 [facility] Comment on above: Performed By: #### C P, ZFAST, CDP #### [facility] [address] [place], [place] [phone] Microbiology Quality Control Technician: Leo Barnes MD #### PSAS, LIPR #### [address] [phone] Microbiology Quality Control Technician: Al Arriaga MD Glucose [Mass/Vol] 102 mg/dL High 70-99 [facility] Comment on above: Performed By: #### C P, ZFAST, CDP #### [facility] [address] [place], [place] [phone] Microbiology Quality Control Technician: Leo Barnes MD #### PSAS, LIPR #### [address] [phone] Microbiology Quality Control Technician: Al Arriaga MD Potassium [Moles/Vol] 4.4 mmol/L Normal 3.7-5.3 [facility] Comment on above: Performed By: #### C P, ZFAST, CDP #### [facility] [address] [place], [place] [phone] Microbiology Quality Control Technician: Leo Barnes MD #### PSAS, LIPR #### [address] [phone] Microbiology Quality Control Technician: Al Arriaga MD Protein [Mass/Vol] 7.4 g/dL Normal 6.4-8.3 [facility] Comment on above: Performed By: #### C P, ZFAST, CDP #### [facility] [address] [place], [place] [phone] Microbiology Quality Control Technician: Leo Barnes MD #### PSAS, LIPR #### [address] [phone] Microbiology Quality Control Technician: Al Arriaga MD Sodium [Moles/Vol] 140 mmol/L Normal 135-144 [facility] Comment on above: Performed By: #### C P, ZFAST, CDP #### [facility] [address] [place], [place] [phone] Microbiology Quality Control Technician: Leo Barnes MD #### PSAS, LIPR #### [address] [phone] Microbiology Quality Control Technician: Al Arriaga MD Urea nitrogen [Mass/Vol] 17 mg/dL Normal 6-20 [facility] Comment on above: Performed By: #### C P, ZFAST, CDP #### [facility] [address] [place], [place] [phone] Microbiology Quality Control Technician: Leo Barnes MD #### PSAS, LIPR #### [address] [phone] Microbiology Quality Control Technician: Al Arriaga MD Albumin/Glob Ratio NOT REPORTED Normal 1.0-2.5 [facility] Comment on above: Performed By: #### C P, ZFAST, CDP #### [facility] [address] [place], [place] [phone] Microbiology Quality Control Technician: Leo Barnes MD #### PSAS, LIPR #### [address] [address] Microbiology Quality Control Technician: Al Arriaga MD Staging: NOT REPORTED Normal [facility] Comment on above: Performed By: #### C P, ZFAST, CDP #### [facility] [address] [place] [address] Microbiology Quality Control Technician: Leo Barnes MD #### PSAS, LIPR #### [facility] [address] [place] [address] Microbiology Quality Control Technician: Al Arriaga MD Comprehensive Metabolic Pane [facility] 06-04-2021 Albumin [Mass/Vol] 4.5 g/dL 3.5 - 5.2 g/dL [facility] Albumin/Globulin Ratio NOT REPORTED [facility] ALP (Bld) [Catalytic activity/Vol] 66 U/L 40 - 129 U/L [facility] ALT [Catalytic activity/Vol] 21 U/L 5 - 41 U/[facility] Anion gap [Moles/Vol] 7 mmol/L Low 9 - 17 mmol/L [facility] AST [Catalytic activity/Vol] 19 U/L <40 [facility] Bilirubin [Mass/Vol] 0.60 mg/dL 0.30 - 1.20 mg/dL [facility] Calcium [Mass/Vol] 10.0 mg/dL 8.6 - 10. 4 mg/dL [facility] Chloride [Moles/Vol] 103 mmol/L 98 - 107 mmol/L [facility] CO2 [Moles/Vol] 30 mmol/L 20 - 31 mmol/L [facility] Creatinine [Mass/Vol] 0.9 mg/dL 0.70 - 1.20 mg/dL [facility] Free PSA/Total PSA [Mass fraction] 7.4 g/dL 6.4 - 8.3 g/dL [facility] GFR >60 >60 mL/min [facility] GFR Non- >60 >60 mL/min [facility] GFR/1.73 sq M.predicted MDRD (S/P/Bld) [Vol rate/Area] [facility] Comment on above: Average GFR for 50-5 9 years old: 93 mL/min/1.73sq m Chronic Kidney Disease: <60 mL/min/1.73sq m Kidney failure: <15 mL/min/1.73sq m eGFR calculated using average adult body mass. Additional eGFR calculator available at: http://www.[employer].ecoInsight/multiple_crcl_2012.htm GFR/1.73 sq M.predicted MDRD (S/P/Bld) [Vol rate/Area] NOT REPORTED [facility] Glucose [Mass/Vol] 102 mg/dL High 70 - 99 mg/dL [facility] Interpretation and review of laboratory results Abnormal [facility] Potassium [Moles/Vol] 4.4 mmol/L 3.7 - 5.3 mmol/L [facility] Sodium [Moles/Vol] 140 mmol/L 135 - 144 mmol/L [facility] Urea nitrogen (BldV) [Mass/Vol] 17 mg/dL 6 - 20 mg/dL [facility] Urea nitrogen/Creatinine (Bld) [Mass ratio] 19 [facility] Lipid Panelon 06-04-2021 Cholesterol [Mass/Vol] 254 mg/dL High <200 [facility] Comment on above: Cholesterol Guidelines: <200 Desirable 200-240 Borderline >240 Undesirable Cholesterol in HDL [Mass/Vol] 47 mg/dL >40 [facility] Comment on above: HDL Guidelines: <40 Undesirable 40-59 Borderline >59 Desirable Cholesterol in LDL [Mass/Vol] 169 mg/dL High 0 - 130 mg/dL [facility] Comment on above: LDL Guidelines: <100 Desirable 100-129 Near to/above Desirable 130-159 Borderline >159 Undesirable Direct (measured) LDL and calculated LDL are not interchangeable tests. Cholesterol in VLDL [Mass/Vol] NOT REPORTED High 1 - 30 mg/dL [facility] Cholesterol.total/C holesterol in HDL [Mass ratio] 5.4 {ratio} High <5 [facility] Interpretation and review of laboratory results Abnormal [facility] Triglyceride [Mass/Vol] 190 mg/dL High <150 [facility] Comment on above: Triglyceride Guidelines: <150 Desirable 150-199 Borderline 200-499 High >499 Very high Based on AHA Guidelines for fasting triglyceride, April 2012. [facility] Lipid Profileon 06-04-2021 Cholesterol [Mass/Vol] 254 mg/dL High <200 [facility] Comment on above: Result Comment: Cholesterol Guidelines: <200 Desirable 200-240 Borderline >240 Undesirable Performed By: #### C P, ZFAST, CDP #### [facility] [address] [place] [address] Microbiology Quality Control Technician: Leo Barnes MD #### PSAS, LIPR #### [facility] [address] [place], [place] [phone] Microbiology Quality Control Technician: Al Arriaga MD Cholesterol in HDL [Mass/Vol] 47 mg/dL Normal >40 [facility] Comment on above: Result Comment: HDL Guidelines: <40 Undesirable 40-59 Borderline >59 Desirable Performed By: #### C P, ZFAST, CDP #### [facility] [address] [place], [place] [phone] Microbiology Quality Control Technician: Leo Barnes MD #### PSAS, LIPR #### [address] [phone] Microbiology Quality Control Technician: Al Arriaga MD Cholesterol in LDL [Mass/Vol] 169 mg/dL High 0-130 [facility] Comment on above: Result Comment: LDL Guidelines: <100 Desirable 100-129 Near to/above Desirable 130-159 Borderline >159 Undesirable Direct (measured) LDL and calculated LDL are not interchangeable tests. Performed By: #### C P, ZFAST, CDP #### [facility] [address] [place], [place] [phone] Microbiology Quality Control Technician: Leo Barnes MD #### PSAS, LIPR #### [address] [phone] Microbiology Quality Control Technician: Al Arriaga MD Cholesterol.total/C holesterol in HDL [Mass ratio] 5.4 {ratio} High <5 [facility] Comment on above: Performed By: #### C P, ZFAST, CDP #### [facility] [address] [place], [place] [phone] Microbiology Quality Control Technician: Leo Barnes MD #### PSAS, LIPR #### [place] [id number] [place], [place] [phone] Microbiology Quality Control Technician: Al Arriaga MD Triglyceride [Mass/Vol] 190 mg/dL High <150 [facility] Comment on above: Result Comment: Triglyceride Guidelines: <150 Desirable 150-199 Borderline 200-499 High >499 Very high Based on AHA Guidelines for fasting triglyceride, April 2012. Performed By: #### C P, ZFAST, CDP #### [facility] [address] [place], [place] [phone] Microbiology Quality Control Technician: Leo Barnes MD #### PSAS, LIPR #### [facility] [address] [place], [place] [phone] Microbiology Quality Control Technician: Al Arriaga MD Cholesterol,VLDL NOT REPORTED Normal 08-13 [facility] Comment on above: Performed By: #### C P, ZFAST, CDP #### [facility] [address] [place], [place] [phone] Microbiology Quality Control Technician: Leo Barnes MD #### MARYLU, LIPR #### [facility] [address] [place], [place] [phone] Microbiology Quality Control Technician: Al Arriaga MD PSA screeningon 06-04-2021 [facility] Patient Fasting?on 1 Patient Fasting? YES [facility] Patient fasting?on 1 Patient fasting? YES Normal [facility] Comment on above: Performed By: #### C P, ZFAST, CDP #### [facility] [address] [place], [place] [phone] Microbiology Quality Control Technician: Leo Barnes MD #### PSAS, LIPR #### [facility] [address] [place], [place] [phone] Microbiology Quality Control Technician: Al Arriaga MD Comprehensive Metabolic Pane larissa 06-04-2020 Albumin [Mass/Vol] 4.8 g/dL 3.5 - 5.2 g/dL [place], [place] Albumin/Globulin [Mass ratio] NOT REPORTED [place], [place] ALP [Catalytic activity/Vol] 79 U/L 40 - 129 U/L [place] ALT [Catalytic activity/Vol] 18 U/L 5 - 41 U/L [place] Anion gap [Moles/Vol] 9 mmol/L 9 - 17 mmol/L [place] AST [Catalytic activity/Vol] 20 U/L <40 [place] Bilirubin Ql (U) 0.80 mg/dL 0.3 - 1.2 mg/dL [place] Bun/Cre Ratio 17 [place] Calcium [Mass/Vol] 10.1 mg/dL 8.6 - 10. 4 mg/dL [place] Chloride [Moles/Vol] 104 mmol/L 98 - 107 mmol/L [place] CO2 [Moles/Vol] 25 mmol/L 20 - 31 mmol/L [place] Creatinine [Mass/Vol] 0.75 mg/dL 0.7 - 1.2 mg/dL [place] GFR >60 >60 mL/min [place] GFR Non- >60 >60 mL/min [place] GFR/1.73 sq M predicted among non-blacks MDRD (S/P/Bld) [Vol rate/Area] NOT REPORTED [place] GFR/1.73 sq M predicted among non-blacks MDRD (S/P/Bld) [Vol rate/Area] [place] Comment on above: Average GFR for 50-5 9 years old: 93 mL/min/1.73sq m Chronic Kidney Disease: <60 mL/min/1.73sq m Kidney failure: <15 mL/min/1.73sq m eGFR calculated using average adult body mass. Additional eGFR calculator available at: http://www.[employer].ecoInsight/multiple_crcl_2012.htm Glucose [Mass/Vol] 92 mg/dL 70 - 99 mg/dL [place] Potassium [Moles/Vol] 4.1 mmol/L 3.7 - 5.3 mmol/L [place] Protein [Mass/Vol] 8.0 g/dL 6.4 - 8.3 g/dL [place], [place] Sodium [Moles/Vol] 138 mmol/L 135 - 144 mmol/L [place] Urea nitrogen [Mass/Vol] 13 mg/dL 6 - 20 mg/dL [place] Lipid Panelon 06-04-2020 Cholesterol [Mass/Vol] 183 mg/dL <200 [place] Comment on above: Cholesterol Guidelines: <200 Desirable 200-240 Borderline >240 Undesirable Cholesterol in HDL [Mass/Vol] 47 mg/dL >40 [place] Comment on above: HDL Guidelines: <40 Undesirable 40-59 Borderline >59 Desirable Cholesterol in LDL [Mass/Vol] 113 mg/dL 0 - 130 mg/dL [place] Comment on above: LDL Guidelines: <100 Desirable 100-129 Near to/above Desirable 130-159 Borderline >159 Undesirable Direct (measured) LDL and calculated LDL are not interchangeable tests. Cholesterol in VLDL [Mass/Vol] NOT REPORTED 1 - 30 mg/dL [place] Cholesterol.total/C holesterol in HDL [Mass ratio] 3.9 {ratio} <5 [place] Triglyceride [Mass/Vol] 115 mg/dL <150 [place] Comment on above: Triglyceride Guidelines: <150 Desirable 150-199 Borderline 200-499 High >499 Very high Based on AHA Guidelines for fasting triglyceride, April 2012. Patient Fasting?on 0 Patient Fasting? YES [place] Flow Cytometry,Nd/Flon 08-21 Flow Cyto,Node/Fluid VS20 1901 Normal [facility] Comment on above: Result Comment: SEE SEPARATE REPORT Performed By: #### F LNF #### [facility] [address] [place] [id number] Microbiology Quality Control Technician: Al Arriaga MD Surgical Pathologyon 020 Surgical Pathology Report [id number] [facility] PATH[facility] [address] [place] [phone] SURGICAL PATHOLOGY CONSULTATION Patient Name: DEEPTHI MARLO [place] Rec: [id number] Path Number: [id number] Collected: 08/18/2019 Received: 08/19/2019 Reported: 08/20/2019 11:37 [...] mpb tm Microscopic Description Microscopic examination performed. [facility] [employer] Phone: Flow Cytometry,Nd/Flon 08-19 Flow Cytom Source LEFT AXILLARY LYMPH NODE Normal [facility] Comment on above: Performed By: #### F LNF #### [facility] [address] [place], [place] [id number] Microbiology Quality Control Technician: Al Arriaga MD Surgical Pathologyon 020 Surgical Pathology (NOTE) [id number] [employer] CONSULTING PATHOLOGISTS [facility] [address] [place] [phone] SURGICAL PATHOLOGY CONSULTATION Patient Name: MARLO LACEY MR#: [id number] Specimen #[id number] Procedures/Addenda FLOW CYTOMETRY REPORT Date Ordered: 08/19/2019 Status: Signed Out Date Complete: 08/19/2019 By: Armando Huggins M.D. Date Reported: 08/20/2019 INTERPRETATION FLOW CYTOMETRIC IMMUNOPHENOTYPING OF LEFT AXILLARY LYMPH NODE IS NEGATIVE FOR B-CELL MONOCLONALITY AND T-CELL ABERRANCY (REACTIVE LYMPHOCYTES). RESULTS-COMMENTS SPECIMEN TYPE: CYTOCENTRIFUGE DIFFERENTIAL CELL COUNT: Lymph Node Tissue Lymphocytes 67% Degenerated Cells 30% Viability: 87% [place]/Hist 3% Flow cytometric immunophenotyping analysis is performed [...] 18. CD103 2 19. FMC7 34 20. [place] 20 21. Lambda 14 This test was developed and its performance characteristics determined by [facility]. It has not [...] tm Microscopic Description Microscopic examination performed. Normal [facility] Comment on above: Performed By: #### P PPVS #### [facility] [address] [place] [address] Microbiology Quality Control Technician: Al Arriaga MD BIOPSY LYMPH NODEon 08-18 [...] procedure including the risk, benefits, and alternatives. [place] protocol was followed. Axial images were obtained [...] Charlie Zavala MD 08/18/19 Final result Normal [facility] Successful ultrasoun d guided core needle left axillary lymph node biopsy. No immediate complications. [employer] Phone: PROCEDURE: ULTRASOUN D GUIDED CORE BIOPSY LYMPH NODE 08/18/2019 HISTORY: ORDERING SYSTEM PROVIDED HISTORY: Enlarged lymph node History of testicular cancer with a hypermetabolic, enlarged left axillary lymph node. Biopsy has been requested. PHYSICIANS: Charlie Zavala MD SEDATION: None TECHNIQUE: Informed consent was obtained after a detailed discussion about the procedure including the risk, benefits, and alternatives. [place]une protocol was followed. Axial images were obtained [...] submitted for both pathology and flow cytometry. [employer] Phone: Fidel, Mhpn Incoming Radiant Results From [facility] - 08/18/2019 2:35 PM EST PROCEDURE: ULTRASOUND GUIDED CORE BIOPSY LYMPH NODE 08/18/2019 HISTORY: ORDERING SYSTEM PROVIDED HISTORY: Enlarged lymph node History of testicular cancer with a hypermetabolic, enlarged left axillary lymph node. Biopsy has been requested. PHYSICIANS: Charlie Zavala MD SEDATION: None TECHNIQUE: Informed consent was obtained after a detailed discussion about the procedure including the risk, benefits, and alternatives. [place]une protocol was followed. Axial images were obtained [...] axillary lymph node biopsy. No immediate complications. [employer] Phone: US EXTREMITY LEFT NON VASC L IMITEDOrdered By: Bert Wooten on 07-30-2019 1. Confirmation of enlarged lymph node in the left axilla with a thickened cortex. 2. In light of the abnormal uptake on PET/CT, consider needle biopsy. The findings were discussed with Dr. Wooten. [employer] Phone: EXAM: US EXTREMITY LEFT NON VASC [...] abnormal lymph node on PET/CT of 07/01/2019. [employer] Phone: Fidel, Mhpn Incoming Radiant Results From [facility] - 07/30/2019 2:09 PM EST EXAM: US [...] The findings were discussed with Dr. Wooten. [employer] Phone: PET CT SKULL BASE TO MID THI GHOrdered By: Devendra Carr on 07-01-2019 Metabolically active enlarged left axillary lymph node measuring 1.5 x 1.0 cm. Recommend tissue sampling. Non-metabolically active right middle lobe 1 cm pulmonary nodule consistent with pulmonary hamartoma. Fatty liver. [employer] Phone: NUCLEAR MEDICINE PET/CT HISTORY: Testicular carcinoma. [...] evidence of abnormal metabolically active bony lesions. [employer] Phone: Fidel, Mhpn Incoming Radiant Results From [facility] - 07/01/2019 7:09 PM EST NUCLEAR MEDICINE [...] nodule consistent with pulmonary hamartoma. Fatty liver. [employer] Phone: CT CHEST WO CONTRASTon 06-12 Indeterminant [...] could relate to incomplete distention or esophagitis. [place] EXAMINATION: CT CHES T WO CONTRAST [...] spurring is noted throughout the thoracic spine. [place] [facility]idel, [facility] Incoming Radiant Results From [facility] - 06/12/2019 4:49 PM EST EXAMINATION: CT [...] could relate to incomplete distention or esophagitis. [place] Comprehensive Metabolic Pane larissa 06-06-2019 Albumin [Mass/Vol] 4.7 g/dL 3.5 - 5.2 g/dL [place] Albumin/Globulin [Mass ratio] NOT REPORTED [place] ALP [Catalytic activity/Vol] 67 U/L 40 - 129 U/L [place] ALT [Catalytic activity/Vol] 21 U/L 5 - 41 U/L [place] Anion gap [Moles/Vol] 12 mmol/L 9 - 17 mmol/L [place] AST [Catalytic activity/Vol] 18 U/L <40 [place] Bilirubin Ql (U) 0.45 mg/dL 0.3 - 1.2 mg/dL [place] Bun/Cre Ratio 17 [place], [place] Calcium [Mass/Vol] 10.4 mg/dL 8.6 - 10. 4 mg/dL [place] Chloride [Moles/Vol] 101 mmol/L 98 - 107 mmol/L [place] CO2 [Moles/Vol] 27 mmol/L 20 - 31 mmol/L [place] Creatinine [Mass/Vol] 0.88 mg/dL 0.7 - 1.2 mg/dL [place] GFR >60 >60 mL/min [place] GFR Non- >60 >60 mL/min [place] GFR/1.73 sq M predicted among non-blacks MDRD (S/P/Bld) [Vol rate/Area] [place] Comment on above: Average GFR for 50-5 9 years old: 93 mL/min/1.73sq m Chronic Kidney Disease: <60 mL/min/1.73sq m Kidney failure: <15 mL/min/1.73sq m eGFR calculated using average adult body mass. Additional eGFR calculator available at: http://www.[employer].ecoInsight/multiple_crcl_2012.htm GFR/1.73 sq M predicted among non-blacks MDRD (S/P/Bld) [Vol rate/Area] NOT REPORTED [place] Glucose [Mass/Vol] 109 mg/dL High 70 - 99 mg/dL [place] Potassium [Moles/Vol] 4.5 mmol/L 3.7 - 5.3 mmol/L [place] Protein [Mass/Vol] 8.0 g/dL 6.4 - 8.3 g/dL [place] Sodium [Moles/Vol] 140 mmol/L 135 - 144 mmol/L [place] Urea nitrogen [Mass/Vol] 15 mg/dL 6 - 20 mg/dL [place] Lipid Panelon 06-06-2019 Cholesterol [Mass/Vol] 264 mg/dL High <200 [place] Comment on above: Cholesterol Guidelines: <200 Desirable 200-240 Borderline >240 Undesirable Cholesterol in HDL [Mass/Vol] 50 mg/dL >40 [place] Comment on above: HDL Guidelines: <40 Undesirable 40-59 Borderline >59 Desirable Cholesterol in LDL [Mass/Vol] 180 mg/dL High 0 - 130 mg/dL [place] Comment on above: LDL Guidelines: <100 Desirable 100-129 Near to/above Desirable 130-159 Borderline >159 Undesirable Direct (measured) LDL and calculated LDL are not interchangeable tests. Cholesterol in VLDL [Mass/Vol] NOT REPORTED High 1 - 30 mg/dL [place] Cholesterol.total/C holesterol in HDL [Mass ratio] 5.3 {ratio} High <5 [place] Triglyceride [Mass/Vol] 168 mg/dL High <150 [place] Comment on above: Triglyceride Guidelines: <150 Desirable 150-199 Borderline 200-499 High >499 Very high Based on AHA Guidelines for fasting triglyceride, April 2012. Otheron 06-06-2019 Interpretation and review of laboratory results Abnormal [place] Patient Fasting?on 9 Patient Fasting? YES [place] TSH without Reflexon 019 TSH Qn 2.56 m[IU]/L [place] CNOVon 12-30-2018 CNOV Office Visit (GENSAV ) AGUSTÍN LACEY ([id number]) 1965 M Date Time Provider Department 12/30/18 9:00 AM SUNNY PACHECO During your visit today, we recorded the following information about you: Referring Provider: SUNNY PACHECO [[id number]] Allergies As of Date: 12/30/2018 Noted Allergy [...] by SUNNY PACHECO MD on 12/30/18 Normal [facility] PROGRESSon 12-30-2018 Protein mass conc HNO ID: [id number] Author: Sunny Pacheco Service: General Surgery Author Type: Physician Type: Progress Notes Filed: 12/30/2018 12:46 PM Note Text: [facility] General Surgery Sunny Pacheco M.D., F.A.C.S. [facility] [address] [place] [address] NAME: AGUSTÍN LACEY [facility] NO: [id number] DATE OF SERVICE: 12/30/2018 PLACE OF ENCOUNTER: [place] Now [id number] weeks from incisional hernia right lower quadrant from old appendectomy. He has done quite well. Abdominal wall is quite stable. No pain patterns. Returning to work without restrictions on January 15. Call or return as needed otherwise. The patient is quite pleased with the results. SUNNY PACHECO M.D. BB/102 Audio #: [id number] cc: Dr. Bernarda Delacruz Date Dictated: 12/30/2018 09:22:40 Date Typed: 12/30/2018 12:09:13 Date Revised: Normal [facility] CNOVon 12-09-2018 CNOV Office Visit (GENSAV ) AGUSTÍN LACEY ([id number]) 1965 Date Time Provider Department 12/09/18 10:15 AM SUNNY PACHECO During your visit today, we recorded the following information about you: Referring Provider: SUNNY PACHECO [[id number]] Allergies As of Date: 12/09/2018 Noted Allergy [...] by SUNNY PACHECO MD on 12/09/18 Normal [facility] PROGRESSon 12-09-2018 Protein mass conc HNO ID: [id number] Author: Sunny Pacheco Service: General Surgery Author Type: Physician Type: Progress Notes Filed: 12/09/2018 4:26 PM Note Text: [facility] General Surgery Sunny Pacheco M.D., F.A.C.S. Chaitanya Gurerero [facility] [address] [address] NAME: AGUSTÍN LACEY [facility]IN[facility] NO: [id number] DATE OF SERVICE: 12/09/2018 PLACE OF ENCOUNTER: [facility] Doing extremely well. No pain. Thick healing ridge throughout repair, as expected. All wounds progressing nicely. No avoid heavy lifting and straining for another three weeks and to return at that time. May become more active otherwise. Continue to lose weight. SUNNY PACHECO M.D. BB/089 Audio #: [id number] Date Dictated: 12/09/2018 10:39:41 Date Typed: 12/09/2018 14:35:16 Date Revised: Normal [facility] CNOVon 11-28-2018 CNOV Office Visit (GENSAV ) AGUSTÍN LACEY ([id number]) 1965 M Date Time Provider Department 11/28/18 10:00 AM SUNNY PACHECO GENSACruz During your visit today, we recorded the following information about you: Referring Provider: SUNNY PACHECO [[id number]] Allergies As of Date: 11/28/2018 Noted Allergy [...] Status:Closed by SUNNY PACHECO MD on 11/28/18 [facility] PROGRESSon 11-28-2018 Protein mass conc HNO ID: [id number] Author: Sunny Pacheco Service: General Surgery Author Type: Physician Type: Progress Notes Filed: 11/30/2018 8:15 AM Note Text: [facility] General Surgery Sunny Pacheco M.D., FFinn. Chaitanya Guerrero [facility] [address] [place], [place] [address] NAME: AGUSTÍN LACEY [facility] NO: [id number] DATE OF SERVICE: 11/28/2018 PLACE OF ENCOUNTER: [facility] One week status post repair of [...] p.r.n. SUNNY PACHECO M.D. 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 No Advance Directive: Current Advance Directive: None Roll Hand Attempted to Assist with AD Completion: Yes [...] None Has the Patient Been in a Chcf Facility in the Past 30 days? No [...] 22, 2018 TIME: 12:37 PM PAGER/CONTACT #: [phone] [facility] PROGRESSon 11-22-2018 Protein mass conc HNO ID: [id number] Author: Randall Jones Jr. Service: General Surgery Author Type: Physician Type: Progress Notes Filed: 11/22/2018 6:38 AM Note Text: Brief Note Doing well, pain well controlled. Hasn't gotten up out of bed. EXAM: abd soft, abdominal binder in place IMPRESSION: s/p lap incisional hernia PLAN: advance activities, possible home this afternoon. [facility] ANES Tricia 11-21-2018 ANES POST HNO ID: [id number] Author: Little Rose Service: Anesthesiology Author Type: Physician Type: Anesthesia PostOp Filed: 11/21/2018 7:36 PM Note Text: POST ANESTHESIA EVALUATION NOTE SERVICE DATE: 11/21/2018 SERVICE TIME: 1936 : 1965 Vitals: 11/21/18 1156 11/21/18 1651 11/21/18 183 Temp: 36.3 ?C (97.3 ?F) 36.1 ?C (97 ?F) 36.4 ?C (97.5 ?F) 11/21/18174411/21/18 1800 11/21/18181411/21/18 183 BP: 119/67 111/66 124/79 120/70 11/21/18174411/21/18 1800 11/21/18181411/21/18 183 Pulse: 71 70 73 72 11/21/18174411/21/18 1800 11/21/18181411/21/18 183 Resp: 16 16 16 16 11/21/18174411/21/18179911/21/18181411/21/181835 SpO2: [...] 21, 2018 TIME: 7:36 PM PAGER/CONTACT #: [facility] ANES PREOPon 11-21-2018 ANES PREOP HNO ID: [id number] Author: Little Rose Service: Anesthesiology Author Type: [...] November 21, 2018 TIME: 12:29 PM CSN: [id number] Normal [facility] OPERATIVE NOon 11-21-2018 OPERATIVE NO HNO ID: [id number] Author: Sunny Pacheco Service: General Surgery Author Type: Physician Type: Operative Report Filed: 11/24/2018 9:16 AM Note Text: [facility] - Operative Report AGUSTÍN LACEY : 1965 AGE: 53. SEX: M PATIENT TYPE: A [facility]: [facility] LOCATION: [facility] ATTENDING PHYSICIAN: Sunny Pacheco M.D. CSN NUMBER: [id number] DATE OF SURGERY/PROCEDURE: 11/21/2018 INCISION/PROCEDURE START TIME: 2:04 PM INCISION CLOSE/PROCEDURE END TIME: 4:40 PM PREOPERATIVE DIAGNOSIS: Incisional hernia; right lower quadrant, status post remote open appendectomy. POSTOPERATIVE DIAGNOSIS: Incisional hernia; right lower quadrant, status post remote open appendectomy. SURGEON: Sunny Pacheco M.D. PAN DEVULCANIZER HELPER: Stelal CORCORAN SURGERY/PROCEDURE: Laparoscopic and open repair of [...] I was present throughout the entire procedure. assistant women's basketball coach, DELMI Douglas was responsible for exposure, retraction, and assistance with wound closure and camera operation. Sunny Pacheco M.D. BB:[id number] /[id number] Normal [facility] SURGICAL PATHOLOGYon 05-10-2 019 SURGICAL PATHOLOGY Specimen originated from [facility] Specimen #: [id number] Submitting Physician: SUNNY PACHECO FINAL DIAGNOSIS Soft [...] reveal any areas of induration or nodularity. Robot Designer sections are submitted as follows: A1 skin, A2 membranous tissue. Gross examination performed at [facility], [address] [place] [address] BF/lbk 11/24/2018 Date of Report: 11/26/2018 Date of Procedure: 11/21/2018 Date of Receipt: 11/21/2018 Submitted by: SUNNY PACHECO Location: AV5E Diagnostic interpretation performed at [facility], [address] [place] [address]. CLIA Number: [id number] [facility] Comment on above: Performed By: #### S #### See report for performing lab information. NURSING PROGon 11-14-2018 Protein mass conc HNO ID: [id number] Author: Chey Wilks (Rn) HERLINDA Silva Service: Anesthesiology Author Type: Registered Nurse Type: Nursing Progress Note Filed: 11/14/2018 1:27 PM Note Text: PACC Nurse Progress Note History AND Physical: PACC Visit Date: 10/30/2018 Labs Within Last 6 Months: CBC: Date 10/30/2018 BMP/CMP: Date 10/30/2018 Labs in EPIC and within acceptable anesthesia guidelines Imaging Within [...] Silva RN November 14, 2018 12:02 PM Normal [facility] CBC and Differentialon 10-30 Abs Baso 0.10 k/uL Normal <0.11 [facility] Comment on above: Performed By: #### C BCDIF, CMP #### [place] [address] [place] [phone] Abs [place] 0.61 k/uL Normal <0.87 [facility] Comment on above: Performed By: #### C BCDIF, CMP #### [place] [phone] Abs Neut 5.19 k/uL Normal 1.45-7.50 [facility] Comment on above: Performed By: #### C BCDIF, CMP #### [place] [phone] Absolute nRBC <0.01 Normal <0.01 [facility] Comment on above: Performed By: #### C BCDIF, CMP #### [place] [phone] Basophils/100 WBC (Bld) 1.3 % Normal [facility] Comment on above: Performed By: #### C BCDIF, CMP #### [place] [phone] DTYPE Auto Diff Normal [facility] Comment on above: Performed By: #### C BCDIF, CMP #### [place] [address] Eosinophils #/vol (Bld) 0.21 10*3/uL Normal <0.46 [facility] Comment on above: Performed By: #### C BCDIF, CMP #### [place] [phone] Eosinophils/100 WBC (Bld) 2.7 % Normal [facility] Comment on above: Performed By: #### C BCDIF, CMP #### [place] [address] Erythrocyte distribution width Ratio (RBC) 13.2 % Normal 11.5-15.0 [facility] Comment on above: Performed By: #### C BCDIF, CMP #### [place] [address] Hematocrit Volume Fraction (Bld) 45.5 % Normal 39.0-51.0 [facility] Comment on above: Performed By: #### C BCDIF, CMP #### [place] [address] Hemoglobin mass conc (Bld) 15.1 g/dL Normal 13.0-17.0 [facility] Comment on above: Performed By: #### C BCDIF, CMP #### [place] [address] Lymphocytes #/vol (Bld) 1.77 10*3/uL Normal 1.00-4.00 [facility] Comment on above: Performed By: #### C BCDIF, CMP #### [place] [address] Lymphocytes/100 WBC (Bld) 22.5 % Normal [facility] Comment on above: Performed By: #### C BCDIF, CMP #### [place] [address] MCH Entitic mass (RBC) 29.6 pG Normal 26.0-34.0 [facility] Comment on above: Performed By: #### C BCDIF, CMP #### [place] [address] MCHC mass conc (RBC) 33.2 g/dL Normal 30.5-36.0 [facility] Comment on above: Performed By: #### C BCDIF, CMP #### [place] [address] [place] [phone] MCV Entitic volume (RBC) 89.2 fL Normal 80.0-100.0 [facility] Comment on above: Performed By: #### C BCDIF, CMP #### [place] [phone] Monocytes/100 WBC (Bld) 7.7 % Normal [facility] Comment on above: Performed By: #### C BCDIF, CMP #### [place] [phone] Neutrophils/100 WBC (Bld) 65.8 % Normal [facility] Comment on above: Performed By: #### C BCDIF, CMP #### [place] [phone] NRBCs 0.0 /100 WBC Normal 0 [facility] Comment on above: Performed By: #### C BCDIF, CMP #### [place] [phone] Platelet mean volume Entitic volume (Bld) 9.9 fL Normal 9.0-12.7 [facility] Comment on above: Performed By: #### C BCDIF, CMP #### [place] [phone] Platelets #/vol (Bld) 241 10*3/uL Normal 150-400 [facility] Comment on above: Performed By: #### C BCDIF, CMP #### [place] [phone] RBC #/vol (Bld) 5.10 10*6/uL Normal 4.20-6.00 [facility] Comment on above: Performed By: #### C BCDIF, CMP #### [facility] [address] [place], [place] [address] WBC #/vol (Bld) 7.88 10*3/uL Normal 3.70-11.00 [facility] Comment on above: Performed By: #### C GILLIAN STACY #### [facility] [address] [place], [place] [address] CT ABD/PEL W IVCONon 019 CT ABD/PEL W IVCON * * *Final Report* * * DATE OF EXAM: Oct 30 2018 3:15PM LN 0530 - CT ABD/PEL W IVCON / [...] any questions regarding this interpretation, please call [phone]. If you are unable to reach us at the number above, please feel free to contact [facility] at [phone]. [id number] Normal [facility] Comp Metabolic Panelon 10-30 Albumin mass conc 4.5 g/dL Normal 3.9-4.9 [facility] Comment on above: Performed By: #### C BCDIF, CMP #### [facility] [address] [place], [place] [address] ALP enzyme act/vol 54 U/L Normal 38-113 [facility] Comment on above: Performed By: #### C BCDIF, CMP #### [facility] [address] [place], [place] [address] ALT enzyme act/vol 29 U/L Normal 10-54 [facility] Comment on above: Performed By: #### C BCDIF, CMP #### [facility] [address] [place], [place] [address] Anion gap molar conc 13 mmol/L Normal 9-18 [facility] Comment on above: Performed By: #### C BCDIF, CMP #### [facility] [address] [place] [address] AST enzyme act/vol 29 U/L Normal 14-40 [facility] Comment on above: Performed By: #### C BCDIF, CMP #### [place] [address] [place] [address] Bilirubin mass conc 0.5 mg/dL Normal 0.2-1.3 [facility] Comment on above: Performed By: #### C BCDIF, CMP #### [place] [address] [place] [phone] Calcium mass conc 9.4 mg/dL Normal 8.5-10.2 [facility] Comment on above: Performed By: #### C BCDIF, CMP #### [facility] [facility] [address] [id number] Chloride molar conc 100 mmol/L Normal 97-105 [facility] Comment on above: Performed By: #### C BCDIF, CMP #### [facility] [address] [place], [place] [address] CO2 molar conc 27 mmol/L Normal 22-30 [facility] Comment on above: Performed By: #### C BCDIF, CMP #### [facility] [address] [place], [place] [address] Creatinine mass conc 0.89 mg/dL Normal 0.73-1.22 [facility] Comment on above: Performed By: #### C BCDIF, CMP #### [facility] [address] [place] [address] eGFR- Amer. >60 Normal [facility] Comment on above: Performed By: #### C BCHERNANDEZF, CMP #### [facility] [address] [place] [address] GFR/1.73 sq M predicted among non-blacks MDRD vol rate/area (S/P/Bld) mL/min/{1.73_m2} Normal [facility] Comment on above: Result Comment: eGFR [...] reflect actual GFR. Performed By: #### C BCHERNANDEZF, CMP #### [facility] [address] [address] Glucose mass conc 75 mg/dL Normal 74-99 [facility] Comment on above: Result Comment: The [place] Diabetes Association (ADA) provides guidance for cutoff [...] Standards of Medical Care in Diabetes 2016, [place] [employer]. Diabetes Care. 2016.39(Suppl 1). Performed By: #### C BCDIF, CMP #### [facility] [address] [address] Potassium molar conc 4.3 mmol/L Normal 3.7-5.1 [facility] Comment on above: Performed By: #### C BCDIF, CMP #### [facility] [address] [place], [place] [id number] Protein mass conc 7.5 g/dL Normal 6.3-8.0 [facility] Comment on above: Performed By: #### C BCDIF, CMP #### [facility] [address] [address] Sodium molar conc 140 mmol/L Normal 136-144 [facility] Comment on above: Performed By: #### C BCDIF, CMP #### [address] [place] [id number] Urea nitrogen mass conc 12 mg/dL Normal 9-24 [facility] Comment on above: Performed By: #### C BCDIF, CMP #### [place] [address] HISTORY PHYSICALon HISTORY PHYSICAL HNO ID: [id number] Author: Khadijah Skaggs Service: ? Author Type: [...] fevers. 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 No neurological symptoms or problems. Respiratory: No history of current cough or dyspnea, or pneumonia in the past 6 weeks. No history of respiratory/pulmonary symptoms or problems. Cardiovascular: No history of HTN requiring medication, no history of angina, CHF, PR, cardiac surgery or stents. Denies rest pain, [...] 30, 2018 TIME: 11:05 AM PAGER/CONTACT #: Carli [facility] PROCEDUREon 10-30-2018 Protein mass conc HNO ID: [id number] Author: Rossy Hunt Ct Service: ? Author Type: ? Type: Procedures [...] DEPARTMENT: CT; Exam(s) Completed: Abdomen/Pelvis SIGNATURE: Rossy Hunt Ct PATIENT NAME: Agustín Lacey DATE: October 30, 2018 TIME: 3:12 PM Normal [facility] CNOVon 10-17-2018 CNOV Office Visit (GENSAV ) AGUSTÍN LACEY ([id number]) 1965 M Date Time Provider Department 10/17/18 1:15 PM SUNNY PACHECO During your visit today, we recorded the following information about you: Weight Height 113.9 kg 1.727 m Referring Provider: DEVENDRA CARR [[id number]] Allergies As of Date: 10/17/2018 Noted Allergy Reaction PENICILLIN 10/17/2018 16 - Unknown Comments: As a child Date Reviewed: 10/17/2018 Reviewed by: Sunny Pacheco - Fully Assessed Reason for Visit: Consult [173] Cmt: incisional hernia Primary Visit Diagnosis:Incisional hernia, without obstruction or gangrene [K43.2] Order(s):CT ABD/PEL W IVCON [[id number]] Order #: [id number] FUTURE iv contrast (will be provided with [...] Status:Closed by SUNNY PACHECO MD on 10/17/18 [facility] HOSPon 10-17-2018 HOSP Patient:Nicho Lacey joshua MRN: Height:5' [...] % 10/30/2018 51.0 39.0 Progress Notes ([facility]): Nel Garcia 11/07/2018 9:33 AM Signed [...] schedule CT Scan. Will follow up. Nel Garcia 11/07/2018 11:31 AM Signed Patient states that he is not interested in scheduling at this time. Patient states that he has had this for many years, PCP aware, and nodule is stable. Patient states that he follows with PCP for this, and will continue to do so. Nothing further needed at this time. Progress Notes ([facility]): Inés Sen COORD 11/05/2018 3:53 PM Signed Patient called inquiring about his medical leave forms faxed yesterday to Dr Pacheco's office, patient states forms have to be completed within 15 days, he is requesting to speak with Moran assistant professor sculpture, please return his call at [phone]. Thank you. Cande Ortiz COORD 11/06/2018 11:11 AM Signed Spoke with patient and he will have the forms sent to [phone]. Sveta Estevez MARCI 11/17/2018 10:04 AM Signed FMLA forms recvd in [place], will complete and have Dr Pacheco sign after surgery on 11-21-18. Normal [facility] PROGRESSon 10-17-2018 Protein mass conc HNO ID: [id number] Author: Sunny Pacheco Service: General Surgery Author Type: Physician Type: Progress Notes Filed: 10/20/2018 8:09 AM Note Text: [facility] General Surgery Sunny Pacheco M.D., F.A.C.S. Chaitanya Guerrero [facility] [address] [place], [place] [address] NAME: AGUSTÍN LACEY [facility] NO: [id number] DATE OF SERVICE: 10/17/2018 PLACE OF ENCOUNTER: [place] HISTORY OF PRESENT ILLNESS: Referred by Dr. Devendra Carr D.O. at the [facility]. Mr. Lacey is here with his . He is a 54-year- old man with modest abdominal obesity at 5'8 and 261 pounds. 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 He lives in [place], [place]. No history of cigarettes. Enjoys reasonably good health. Available [facility] records are verified, confirmed and updated. He is here for a hernia in the right lower quadrant abdominal wall, incisional, from an appendectomy he had performed through a large McBurney's incision about six months ago in 03/2018 at [place], [place]. Those operative records are reviewed. His [...] with surgical alternative. To be performed at [facility]. SUNNY PACHECO M.D. BB/102 Audio #: [id number] cc: Devendra Carr D.O. [address] [place] [id number] Date Dictated: 10/17/2018 15:14:15 Date Typed: 10/18/2018 00:56:31 Date Revised: Normal [facility] Coding Summary.on 07-14-2018 Coding Summary. CODING DATE: 07/14/2018 FINAL [facility] STATUS: Home (Routine DC) PAYOR: Commercial Insurance [...] Travis Date Saved: 07/14/2018 12:19 pm Normal [facility] ED Note-Physicianon 07-12-20 ED Note-Physician Basic Information [...] HAD AN OPEN APPENDECTOMY ON 04/02 AT [facility]. HE STATES HE DID NOT FEEL WELL [...] AND CT CT REVIEWED CASE DISCUSSED WITH DAIRY CHEMIST SURGEON HE WILL SEE THE PATIENT IN [...] QUIROZ In 3 days 07/14/[address] [place] [address]- Business (1) Additional Instructions: please call the office in the AM Dr Quiroz will see you for follow up if symptoms worsen, please return to the ED DEVENDRA CARR Within 1 to 2 days [address] [place] [address]- Business (1) Additional Instructions: Return to ED [...] Lymph Auto: 21.9 % (07/11/18 19:10:00 EST) [place] Auto: 7.2 % (07/11/18 19:10:00 EST) Eos Auto: 3.8 % (07/11/18 19:10:00 EST) Basophil Auto: 2 % (07/11/18 19:10:00 EST) Neutro Absolute: 5.7 E9/L (07/11/18 19:10:00 EST) Lymph Absolute: 1.9 E9/L (07/11/18 19:10:00 EST) [place] Absolute: 0.6 E9/L (07/11/18 19:10:00 EST) Eos [...] No Signed By: Theodore Gee MD Normal [facility] Comment on above: Result Comment: Elec tronically Signed By: Natacha Shaffer DO\.br\Date and Time Signed: 07/12/18 03:41 EST Auto Diffon 07-11-2018 Basophils/100 WBC (Bld) 2.0 % Normal 0.0-2.0 [facility] Comment on above: Order Comment: Order Added by Discern Expert. Performed By: #### 2 012624, [id number], 2368900, [id number] #### [facility] Laboratory [address] [place] [address] Basophils/Leukocyte s Auto (Bld) [Pure # fraction] 0.2 E9/L Normal 0.0-0.2 [facility] Comment on above: Order Comment: Order Added by Discern Expert. Performed By: #### 2 766707, 0285985, 1794200, [id number] #### [facility] Laboratory [address] [place] [address] Eosinophils/100 WBC (Bld) 3.8 % Normal 0.0-8.0 [facility] Comment on above: Order Comment: Order Added by Discern Expert. Performed By: #### 2 486562, 2179622, 5878821, [id number] #### [facility] Laboratory [address] [place] [address] Eosinophils/Leukocy sandeep Auto (Bld) [Pure # fraction] 0.3 E9/L Normal 0.0-0.5 [facility] Comment on above: Order Comment: Order Added by Discern Expert. Performed By: #### 2 571972, 9920832, 9767933, [id number] #### [facility] Laboratory [address] [place] [address] Lymphocytes/100 WBC (Bld) 21.9 % Normal 14.0-50.0 [facility] Comment on above: Order Comment: Order Added by Discern Expert. Performed By: #### 2 336452, 1559342, 3017128, [id number] #### [facility] Laboratory [address] [place] [address] Lymphocytes/Leukocy sandeep Auto (Bld) [Pure # fraction] 1.9 E9/L Normal 1.0-4.0 [facility] Comment on above: Order Comment: Order Added by Discern Expert. Performed By: #### 2 479409, 8103758, 2377385, 59323377 #### [facility] Laboratory [address] [place] [address] Monocytes/100 WBC (Bld) 7.2 % Normal 4.0-14.0 [facility] Comment on above: Order Comment: Order Added by Discern Expert. Performed By: #### 2 171118, 0389695, 7741098, 80793948 #### [facility] Laboratory [address] [place] [address] Monocytes/Leukocyte s Auto (Bld) [Pure # fraction] 0.6 E9/L Normal 0.2-1.0 [facility] Comment on above: Order Comment: Order Added by Discern Expert. Performed By: #### 2 885975, 9349073, 2853093, 38611798 #### [facility] Laboratory [address] [place] [address] Neutrophils/100 WBC (Bld) 65.1 % Normal 36.0-75.0 [facility] Comment on above: Order Comment: Order Added by Discern Expert. Performed By: #### 2 008886, 4645254, 5082923, 84740230 #### [facility] Laboratory [address] [place] [address] Neutrophils/Leukocy sandeep Auto (Bld) [Pure # fraction] 5.7 E9/L Normal 2.0-7.5 [facility] Comment on above: Order Comment: Order Added by Discern Expert. Performed By: #### 2 507375, 4523498, 6613272, 83874514 #### [facility] Laboratory [address] [place] [address] CBC w/ Auto Diffon 8 Erythrocyte distribution width (RBC) [Ratio] 14.2 % Normal 10.9-14.2 [facility] Comment on above: Performed By: #### 2 138113, 6095631, 8396903, 66458790 #### [facility] Laboratory [address] [place] [address] Hematocrit (Bld) [Volume fraction] 43.1 % Normal 37.7-49.0 [facility] Comment on above: Performed By: #### 2 021759, 0368040, 8761966, 56308144 #### [facility] Laboratory [address] [place] [address] Hemoglobin (Bld) [Mass/Vol] 14.8 g/dL Normal 13.5-17.5 [facility] Comment on above: Performed By: #### 2 125102, 8202669, 2476720, 18041524 #### [facility] Laboratory [address] [place] [address] MCH (RBC) [Entitic mass] 29.9 pg Normal 27.0-34.0 [facility] Comment on above: Performed By: #### 2 197915, 6163204, 2076007, [id number] #### [facility] Laboratory [address] [place] [address] MCHC (RBC) [Mass/Vol] 34.3 g/dL Normal 31.4-39.3 [facility] Comment on above: Performed By: #### 2 921251, 6523241, 4500825, 95513045 #### [facility] Laboratory [address] [place] [address] MCV (RBC) [Entitic vol] 87.1 fL Normal 80.0-100.0 [facility] Comment on above: Performed By: #### 2 311738, 0162298, 2492529, 05516483 #### [facility] Laboratory [address] [place] [address] Platelet mean volume (Bld) [Entitic vol] 7.2 fL Normal 6.4-10.8 [facility] Comment on above: Performed By: #### 2 320723, 0123081, 0409499, 54235823 #### [facility] Laboratory [address] [place] [address] Platelets (Bld) [#/Vol] 202.0 E9/L Normal 150.0-500.0 [facility] Comment on above: Performed By: #### 2 455461, 4009659, 5490857, 47252174 #### [facility] Laboratory [address] [place], [place] [address] RBC (Bld) [#/Vol] 5.0 E12/L Normal 4.3-5.9 [facility] Comment on above: Performed By: #### 2 916249, 4469139, 4664466, 05176606 #### [facility] Laboratory [address] [place] [address] WBC corrected for nucl RBC Auto (Bld) [#/Vol] 8.8 E9/L Normal 4.0-11.0 [facility] Comment on above: Performed By: #### 2 183349, 8686853, 9131955, 50423138 #### [facility] Laboratory [address] [place] [address] CMPon 07-11-2018 Albumin [Mass/Vol] 4.1 g/dL Normal 3.3-5.0 [facility] Comment on above: Performed By: #### 2 662643, 8694202, 6223576, 35143298 #### [facility] Laboratory [address] [place], [place] [address] Albumin [Mass/Vol] 1.4 g/dL Normal 1.1-2.2 [facility] Comment on above: Performed By: #### 2 531375, 6303181, 8303398, 98556772 #### [facility] Laboratory [address] [place], [place] [address] ALP [Catalytic activity/Vol] 49 Int._Unit/L Normal 21-98 [facility] Comment on above: Performed By: #### 2 108545, 7931711, 0712385, 29665326 #### [facility] Laboratory [address] [place] [address] ALT No additional P-5'-P [Catalytic activity/Vol] 32 Int._Unit/L Normal 6-46 [facility] Comment on above: Performed By: #### 2 571647, 0603549, 1882835, 87873503 #### [facility] Laboratory [address] [place] [address] AST [Catalytic activity/Vol] 27 Int._Unit/L Normal 5-43 [facility] Comment on above: Performed By: #### 2 382639, 9139351, 6611157, 46085274 #### [facility] Laboratory [address] [place] [address] Bilirubin [Mass/Vol] 0.6 mg/dL Normal 0.0-1.1 [facility] Comment on above: Performed By: #### 2 913437, 5459478, 0067967, 78070199 #### [facility] Laboratory [address] [place] [address] Creatinine [Mass/Vol] 0.9 mg/dL Normal 0.5-1.3 [facility] Comment on above: Performed By: #### 2 191986, 6964165, 1927141, 12627979 #### [facility] Laboratory [address] [place] [address] Globulin (S) [Mass/Vol] 3.0 g/dL Normal 1.4-4.0 [facility] Comment on above: Performed By: #### 2 991103, 2145223, 6968925, 03605693 #### [facility] Laboratory [address] [place] [address] Protein [Mass/Vol] 7.1 g/dL Normal 6.0-7.8 [facility] Comment on above: Performed By: #### 2 616173, 3403274, 7821843, 62199240 #### [facility] Laboratory [address] [place] [address] Urea nitrogen [Mass/Vol] 14 mg/dL Normal 5-21 [facility] Comment on above: Performed By: #### 2 916419, 4243363, 9679856, 00215788 #### [facility] Laboratory [address] [place] [address] Urea nitrogen/Creatinine [Mass ratio] 16 No Units Normal 10-20 [facility] Comment on above: Performed By: #### 2 876242, 0723176, 0653060, [id number] #### [facility] Laboratory [address] [place] [address] Anion gap [Moles/Vol] 13 mmol/L Normal 6-16 [facility] Comment on above: Performed By: #### 2 587343, 5074664, 5356238, 82466241 #### [facility] Laboratory [address] [place] [address] Calcium [Mass/Vol] 9.2 mg/dL Normal 8.9-11.1 [facility] Comment on above: Performed By: #### 2 386931, 7100254, 6540071, 55081764 #### [facility] Laboratory [address] [place] [address] Chloride [Moles/Vol] 100 mmol/L Low 101-111 [facility] Comment on above: Performed By: #### 2 804443, 8955674, 9008344, 89936514 #### [facility] Laboratory [address] [place] [address] CO2 [Moles/Vol] 26 mmol/L Normal 21-31 [facility] Comment on above: Performed By: #### 2 371184, 3529635, 3706646, 88012076 #### [facility] Laboratory [address] [place] [address] Glucose [Mass/Vol] 89 mg/dL Normal 55-199 [facility] Comment on above: Result Comment: If t his glucose result represents a fasting glucose, interpretation should refer to the following reference range: 55-99 mg/dL Performed By: #### 2 532536, 9692901, 7482477, 93265553 #### [facility] Laboratory [address] [place] [address] Potassium [Moles/Vol] 3.8 mmol/L Normal 3.5-5.3 [facility] Comment on above: Performed By: #### 2 741795, 9041083, 8348188, 95643392 #### [facility] Laboratory [address] [place] [address] Sodium [Moles/Vol] 135 mmol/L Normal 135-145 [facility] Comment on above: Performed By: #### 2 200005, 5055979, 0786678, 16669999 #### [facility] Laboratory [address] [place] [address] ED Clinical Summaryon 2017 ED Clinical Summary [address] [address] ED Clinical Summary Person Information Name: AGUSTÍN LACEY [facility] Age: 53 Years : 1965 12:00 AM Sex: Male Language: Bermudian PCP: DEVENDRA CARR DO Marital Status: Phone: [phone] Visit Id: Visit Reason: Abdominal swelling; Rash; [...] 07/11/2018 9:18 PM 07/11/2018 9:18 PM ADDRESS: [address] [place] [id number] PHYS DOC NOTES: MEDICAL INFORMATION: Prescriptions Given: PATIENT EDUCATION INFORMATION: Instructions: Open Appendectomy, Care After Follow up: With: Address: When: [address], [address] [place] [address] Business (1) In 3 days 07/14/2018 Comments: please call the office in the AM Dr Quiroz will see you for follow up if symptoms worsen, please return to the ED With: Address: When: DEVENDRA CARR [address] [facility] [place] [id number] [facility] ([employer] Within 1 to 2 days Comments: Return to ED if symptoms worsen DIAGNOSIS: 1:Post-op pain Normal [facility] ED Patient Education Noteon 07-11-2018 ED Patient [...] instructed by your caregiver. ? Only take sdtx-mql-bcxtexe or prescription medicines for pain, discomfort, or [...] Document Reviewed: 01/08/2012 ExitCare? Patient Information ?2014 [employer]. This information is not intended to replace advice given to you by your health care provider. Make sure you discuss any questions you have with your health care provider. Normal [facility] ED Patient Summaryon 018 ED Patient Summary [address] [address] Patient Discharge Instructions Person Information Name: AGUSTÍN LACEY Age: 53 Years Arrival Date: 07/11/2018 4:20 PM Discharge Diagnosis: 1:Post-op pain Primary Care Physician: DEVENDRA CARR DO Provider Information Primary Provider: Natacha Shaffer DO Advanced Dog Catcher:None The exam and treatment you received in the Emergency Department were for an urgent problem and are not intended as complete care. It is important that you follow up with a doctor, nurse practitioner, or physician?s psych assistant for ongoing care. If your symptoms become worse or you do not improve as expected and you are unable to reach your usual health care provider, you should return to the Emergency Department. We are available 24 hours a day. DEEPTHI AGUSTÍN Fiona has been given the following list of patient education materials, prescriptions and follow-up instructions: Follow-up Instructions: With: Address: When: Bert QUIROZ [address] [facility], [address] [place] [address] Business (1) In 3 days 07/14/2018 Comments: please call the office in the AM Dr Quiroz will see you for follow up if symptoms worsen, please return to the ED With: Address: When: DEVENDRA CARR [address] [place] [address] Business (1) Within 1 to 2 [...] opioids can be used to help relieve mqiqpbmo-ky-rblxpz pain and are often prescribed following a [...] be struggling with addiction, tell your health care transition manager and ask for guidance or call [facility]?S National Helpline at 9-724-279-SGUY. c Source: US Department of Health and Human Services/Center for Disease Control & Prevention [facility] Medications Given: Medication Dose Route No medications found. Medication Information: Comment: Pharmacy Information: PRISCILLA Nguyen Thank you for choosing [facility] Patient Education Materials: Open Appendectomy Care After [...] instructed by your caregiver. ? Only take vkuj-few-swfsijj or prescription medicines for pain, discomfort, or [...] 09/22/2012 Document Reviewed: 01/08/2012 ExitCare? Patient Information ?2015 [employer]. This information is not intended to replace advice given to you by your health care provider. Make sure you discuss any questions you have with your health care provider. DEEPTHI Riley WILLIAM D , have received the following patient education materials/instructions and have verbalized understanding: Patient Education Materials: Open Appendectomy, Care After Follow-up Instructions: With: Address: When: Bert QUIROZ [address], [address] [place] [address] Business (1) In 3 days 07/14/2018 Comments: please call the office in the AM Dr Quiroz will see you for follow up if symptoms worsen, please return to the ED With: Address: When: DEVENDRA CARR [address] [facility], [place] [address] Business (1) Within 1 to 2 days Comments: Return to ED if symptoms worsen Prescriptions: Patient Signature Date Clinician/Nurse Signature ___ Date 07/11/18 21:18:59 Normal [facility] eGFRon 07-11-2018 GFR/1.73 sq M predicted among blacks MDRD (S/P/Bld) [Vol rate/Area] mL/min/{1.73_m2} Normal >=59 [facility] Comment on above: Order Comment: Order added by Discern Expert. Result Comment: eGFR is race adjusted. AA=. Performed By: #### 2 [id number] #### [facility] Laboratory [address] [place] [address] GFR/1.73 sq M predicted among non-blacks MDRD (S/P/Bld) [Vol rate/Area] mL/min/{1.73_m2} Normal >=59 [facility] Comment on above: Order Comment: Order added by Discern Expert. 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 Kidney failure is indicated at less than 15 mL/min/1.73m2. Performed By: #### 2 [id number] #### [facility] Laboratory [address] [place] [address] Coding Summary.on 06-09-2018 Coding Summary. 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: Commercial Insurance [...] Hua CphT Date Saved: 06/09/2018 07:37 am Normal [facility] Vital Signs Date Time Vital Sign Value Performing Clinician Facility 11-17-2024 15:38-0400 Body height 172.72 cm [facility] 11-17-2024 15:38-0400 Body mass index (BMI) [Ratio] 38.1 kg/m2 [facility] 11-17-2024 15:38-0400 Body weight 113.85 kg [facility] 11-17-2024 15:38-0400 Diastolic blood pressure 80 mm[Hg] [facility] 11-17-2024 15:38-0400 Heart rate 68 /min [facility] 11-17-2024 15:38-0400 Respiratory rate 12 /min [facility] 11-17-2024 15:38-0400 Systolic blood pressure 140 mm[Hg] [facility] 02-12-2024 16:00-0400 Body height 172.72 cm [facility] 02-12-2024 16:00-0400 Body mass index (BMI) [Ratio] 38.5 kg/m2 [facility] 02-12-2024 16:00-0400 Body weight 114.78 kg [facility] 02-12-2024 16:00-0400 Diastolic blood pressure 75 mm[Hg] [facility] 02-12-2024 16:00-0400 Heart rate 76 /min [facility] 02-12-2024 16:00-0400 Respiratory rate 12 /min [facility] 02-12-2024 16:00-0400 Systolic blood pressure 140 mm[Hg] [facility] 12-11-2023 15:39-0400 Body height 172.72 cm [facility] 12-11-2023 15:39-0400 Body mass index (BMI) [Ratio] 38.5 kg/m2 [facility] 12-11-2023 15:39-0400 Body weight 114.81 kg [facility] 12-11-2023 15:39-0400 Diastolic blood pressure 86 mm[Hg] [facility] 12-11-2023 15:39-0400 Heart rate 74 /min [facility] 12-11-2023 15:39-0400 Respiratory rate 12 /min [facility] 12-11-2023 15:39-0400 Systolic blood pressure 146 mm[Hg] [facility] 11-04-2023 13:36-0400 Body height 172.72 cm [facility] 11-04-2023 13:36-0400 Body mass index (BMI) [Ratio] 38.5 kg/m2 [facility] 11-04-2023 13:36-0400 Body weight 114.75 kg [facility] 11-04-2023 13:36-0400 Diastolic blood pressure 76 mm[Hg] [facility] 11-04-2023 13:36-0400 Heart rate 77 /min [facility] 11-04-2023 13:36-0400 SaO2% (BldA) [Mass fraction] 97 % [facility] 11-04-2023 13:36-0400 Systolic blood pressure 130 mm[Hg] [facility] 06-24-2023 15:30-0500 Body height 172.72 cm Devendra Ball Other [employer] Other 06-24-2023 15:30-0500 Body mass index (BMI) [Ratio] 38.22 kg/m2 Devendra Ball Other [employer] Other 06-24-2023 15:30-0500 Body weight 114.04 kg Devendra Ball Other [employer] Other 06-24-2023 15:30-0500 Diastolic blood pressure 80 mm[Hg] Devendra Ball Other [employer] Other 06-24-2023 15:30-0500 Respiratory rate 12 /min Devendra Ball Other [employer] Other 06-24-2023 15:30-0500 Systolic blood pressure 136 mm[Hg] Devendra [employer] Other [employer] Other 08-18-2019 14:32-0500 BP Diastolic 89 mm[Hg] [facility] [employer] Work Phone: 08-18-2019 14:32-0500 BP Systolic 167 mm[Hg] [facility] [employer] Phone: 08-18-2019 14:32-0500 Pulse (Heart Rate) 78 /min [facility] [employer] Phone: 08-18-2019 14:32-0500 Pulse Oximetry 98 % [facility] [employer] Phone: 08-18-2019 14:32-0500 Respiratory Rate 16 /min [facility] [employer] Phone: Encounters Encounter Date Encounter Type Care Provider Facility Start: 11-17-2024 End: 11-17-2024 ambulatory [facility] Work Phone: Start: 11-17-2024 End: 11-17-2024 Encounter for general adult medical examination without abnormal findings [facility] Start: 11-17-2024 End: 11-17-2024 Patient encounter procedure [facility] Work Phone: Start: 11-15-2024 Patient encounter status [facility] Start: 02-12-2024 End: 02-12-2024 ambulatory [facility] Work Phone: Start: 02-12-2024 End: 02-12-2024 Patient encounter procedure [facility] Work Phone: Start: 12-11-2023 End: 12-11-2023 ambulatory [facility] Work Phone: Start: 12-11-2023 End: 12-11-2023 Patient encounter procedure [facility] Work Phone: Start: 11-04-2023 End: 11-04-2023 ambulatory [facility] Work Phone: Start: 11-04-2023 End: 11-04-2023 Patient encounter procedure [facility] Physician [facility] Work Phone: Start: 09-28-2023 Non-patient / Non-visit [facility] Physician [facility] Work Phone: Start: 08-22-2023 End: 08-22-2023 ambulatory Devendra Carr Other [employer] Other Start: 08-22-2023 Telephone encounter Devendra Carr [facility] Start: 07-30-2023 End: 07-30-2023 ambulatory Desmond Stoll Other [employer] Other Start: 07-30-2023 Telephone encounter Desmond Bravo [employer] [facility] Start: 07-12-2023 End: 07-12-2023 ambulatory Devendra Carr Other [employer] Other Start: 07-12-2023 Telephone encounter Devendra Carr [facility] Start: 06-24-2023 End: 06-24-2023 ambulatory Devendra Carr Other [employer] Other Start: 06-24-2023 Encounter for genera l adult medical examination without abnormal findings Devendra Carr [facility] Start: 06-24-2023 Periodic preventive med est patient 40-64yrs Devendra Carr [facility] Start: 06-24-2023 Telephone encounter Devendra PROCTOR G [facility] Start: 06-04-2023 End: 06-04-2023 ambulatory Devendra Carr Other [employer] Other Start: 06-04-2023 Office outpatient visit 15 minutes Devendra Carr [facility] Start: 05-20-2023 End: 05-20-2023 ambulatory Devendra Carr Other [employer] Other Start: 05-20-2023 Office outpatient visit 15 minutes Devendra Carr [facility] Start: 06-28-2022 Encounter for genera l adult medical examination without abnormal findings DR DEVENDRA CARR [facility] Start: 06-23-2022 End: 06-24-[address] DEVENDRA CARR Facility:[facility] Start: 06-23-2022 End: 06-24-2022 Encounter for general adult medical examination without abnormal findings DR DEVENDRA CARR Facility:[facility] Start: 06-04-2021 End: 06-05-2021 ambulatory DEVENDRA CARR [facility] Start: 06-04-2021 End: 06-04-2021 Subsequent hospital visit by physician Devendra Carr DO Work Phone: [facility] Start: 06-04-2020 End: 06-04-2020 Subsequent hospital visit by physician Devendra Carr [facility] Laboratory Start: 08-18-2019 End: 08-21-2019 Patient encounter procedure BRET WOOT[facility] Start: 08-18-2019 End: 08-20-2019 Subsequent hospital visit by physician Matias Gustafson [facility] Ultrasound Comment on above: Enlarged lymph node Start: 07-30-2019 End: 08-01-2019 Subsequent hospital visit by physician Mercy Esqueda [facility] Ultrasound Comment on above: Enlarged lymph node Start: 07-01-2019 End: 07-01-2019 [facility] Comment on above: Lung nodule Start: 06-12-2019 End: 06-14-2019 Subsequent hospital visit by physician [facility] Cat Scan Room [facility] CT Scan Comment on above: Incidental pulmonary nodule Start: 06-06-2019 End: 06-06-2019 Subsequent hospital visit by physician Devendra Carr [facility] Laboratory Procedures Date Procedure Procedure Detail Performing Clinician Start: 06-23-[address] BONNY CARR Comment on above: Performed By: #### P [facility] #### [facility] [address] [address] [address] Yonas Ivan Start: 06-04-2021 PSA screening Devendra Carr DO Work Phone: Comment on above: The [employer] ECLIA as say is used. Results obtained with different assay methods cannot be used interchangeably. Start: 06-04-2021 Comprehensive metabo lic panel Devendra Carr DO Work Phone: Start: 06-04-2021 Lipid panel Devendra piper DO Work Phone: Start: 06-04-2021 PATIENT FASTING? Bonny Carr DO Work Phone: Start: 06-04-2020 [object Object] Randi Carr Comment on above: The [employer] ECLIA as say is used. Results obtained with different assay methods cannot be used interchangeably. Start: 06-04-2020 Comprehensive metabo lic panel Devendra Carr Work Phone: Start: 06-04-2020 Lipid panel Devendra Quick all Work Phone: Start: 06-04-2020 PATIENT FASTING? Bonny mazariegos [facility] Work Phone: Start: 06-04-2020 PSA screening Devendra Carr Work Phone: Start: 08-18-2019 Bx/exc lymph node ne edle superficial BERT KUIVINEN Start: 08-18-2019 Protein total xcpt refractometry urine BERT KUIVINEN Start: 08-18-2019 Bx/exc lymph node ne edle superficial Bert P Kuivinen Work Phone: Start: 08-18-2019 Level iv surg pathol ogy gross&microscopic exam BERT KUIVINEN Start: 08-18-2019 Level iv surg pathol ogy [...] Phone: Start: 06-06-2019 PATIENT FASTING? Benjam in [facility] Work Phone: Start: 06-06-2019 End: 06-06-2019 PSA screening Devendra Carr Work Phone: Comment on above: The [employer] ECLIA as say is used. Results obtained with different assay methods cannot be used interchangeably. Plan of Treatment Date Care Activity Detail Author Start: 11-17-2024 Patient referral [facility] Work Phone: Start: 06-06-2024 Lipid screen Lipid screen [place], [place] Start: 06-04-2021 Lipid panel Lipid screen [facility] Start: 03-15-2021 Influenza vaccination Flu vaccine (# 1) [facility] Start: 06-06-2020 Lipid panel Lipid screen [place], [place] Start: 06-06-2020 Lipid screen Lipid screen [facility] Work Phone: Start: 03-15-2020 Influenza vaccination Flu vaccine (# 1) [place], [place] Start: 03-15-2019 Influenza vaccination Flu vaccine (# 1) [place], [place] Start: 2013 Colon cancer screen colonoscopy Colon cancer screen colonoscopy [place], [place] Start: 2013 Screening for malign ant neoplasm of colon Colon cancer screen colonoscopy [place], [place] Start: 2013 Shingles Vaccine (1 of 2) Kennedy gles Vaccine (1 of 2) [facility] Start: 2008 Screening for malign ant neoplasm of colon Colon cancer screen colonoscopy [facility] Start: 2003 Diabetes screen Diabetes screen [facility] [employer] Phone: Start: 1982 DTaP/Tdap/Td vaccine (1 - Tdap) DTaP/Tdap/Td vaccine (1 - Tdap) [facility] Start: 1978 HIV screen HIV screen [place], [place] Start: 1978 HIV screening HIV screen [facility] Start: 1975 COVID-19 Vaccine (1) COVID-19 Vaccin e (1) [facility] Start: 1974 DTaP/Tdap/Td vaccine (1 - Tdap) DTaP/Tdap/Td vaccine (1 - Tdap) [place], [place] Start: 1963 Hepatitis C screen Hepatitis C scree n [place], [place] Start: 1963 Hepatitis C screening Hepatitis C sc reen [facility] Comprehensive metabo lic 2000 panel - Serum or Plasma [facility] End: 08-18-2019 Flow cytometry leukemia/lymphoma nodes or fluids Flow cytometry leukemia/lymphoma nodes or fluids Lab Routine Once for 1 Occurrences starting 08/18/2019 until 08/18/2019 [facility] Work Phone: Comment on above: Once for 1 Occurrenc es starting 08/18/2019 until 08/18/2019 Flow cytometry leukemia/lymphoma nodes or fluids Flow cytometry leukemia/lymphoma nodes or fluids Lab Routine 08/18/2019 2:09 PM EST [facility] Work Phone: End: 06-04-2020 HbA1c (Bld) [Mass fraction] Hemoglobin A1C Lab Routine Once for 1 Occurrences starting 06/04/2020 until 06/04/2020 [place], [place] Comment on above: Once for 1 Occurrenc es starting 06/04/2020 until 06/04/2020 HbA1c (Bld) [Mass fraction] Hemoglobin A1C Lab Routine 06/04/2020 8:05 AM EST [place], [place] Patient referral [facility] Work Phone: XR Knee - left 4 Views [facility] Immunizations Immunization Date Immunization Notes Care Provider Bin dodson 10-21-2020 COVID-19 Vaccine Pfi zer - Documentation Purposes Only Devendra Carr Other [facility] 09-30-2020 COVID-19 Vaccine Pfi zer - Documentation Purposes Only Devendra Carr Other [facility] Payers Date Payer Category Payer Unknown [employer] xxxxxxxxx 2014-Present [phone] [address] [place] [address] xxxxxxxxx [id number] 1965 Unknown [id number] 1963 Unknown [id number] 1963 Unknown [id number] 1959 Unknown [id number] Unknown [id number] Unknown [id number] Social History Date Type Detail Facility Tobacco smoking status PAIS Unknown if ever smoked [employer] Start: 1965 Sex Assigned At Not on file [facility] [employer] Start: 08-18-2019 End: 11-17-2024 Tobacco smoking status NHIS Never smoker [employer] Phone: Start: 07-30-2019 End: 08-18-2019 Alcohol intake Ex-drinker (finding) [employer] Phone: Start: 07-30-2019 End: 08-18-2019 Tobacco use and exposure Never used [employer] Sex Assigned At Sex Assigned At Bir th [employer] Other Start: 1965 Sex Assigned At Male F [facility] Start: 11-17-2024 Sex Male (finding) [facility] Clinical Notes 05-20-2023 to 08-22-2023 Note Date & Type Note Facility 08-22-2023 Evaluation note Encounter Date Diagnosis Assessment Notes Aug, Hyperlipidemia type II (ICD-10 - E78.01) Aug, Hyperglycemia (ICD-10 - R73.9) [facility] [employer] Other 12-29-2023 Evaluation note* Encounter Date Diagnosis Assessment Notes Treatment Notes Treatment Clinical Notes Jun, Hyperlipidemia type II (ICD-10 - E78.01) [facility] [employer] Other 12-11-2023 Evaluation note* Encounter Date Diagnosis Assessment Notes Treatment Notes Treatment Clinical Notes Jun, Wellness examination (ICD-10 - Z00.00) [...] (ICD-10 - Z12.5) Yearly ALEXANDER and PSA [employer] Other 11-21-2023 Evaluation note* Encounter Date Diagnosis Assessment Notes Treatment Notes Treatment Clinical Notes May, Acute bronchitis due to other specified organisms (ICD-10 - J20.8) Instructed to use Robitussin or Mucinex for cough, saline or Flonase NS for congestion, Tylenol for pain and fever. Switched to Levofloxacin due to Doryx not on health plan formulary [employer] Other 11-06-2023 Evaluation note* Encounter Date Diagnosis Assessment Notes Treatment Notes Treatment Clinical Notes May, Acute bronchitis due to other [...] index [BMI] 36.0-36.9, adult (ICD-10 - Z68.36) [employer] Other Evaluation note* Diagnosis Lung nodule Solitary pulmonary nodule documented in this encounter [employer] Phone: evaluation note* Diagnosis Enlarged lymph node Enlargement of lymph nodes documented in this encounter [employer] Phone: evaluation noteNo [facility]Nort [employer] Other Evaluation note* Diagnosis Onset Date Resolution Status Strain of left knee acute [facility] Work Phone: Evaluation note* Diagnosis Onset Date Resolution Status Strain of left knee acute Internal derangement of left knee acute Left knee pain acute Paresthesias acute [facility] Work Phone: Evaluation note* Diagnosis Onset Date Resolution Status Internal derangement of left knee acute Left knee pain acute Paresthesias acute Left knee pain acute Paresthesias acute [facility] Work Phone: Evaluation note* Diagnosis Onset Date Resolution Status Admit Date Hypercholesterolemia acute November 17, 2024 3:14pm Hypertension acute November 17 3:14pm Obesity acute November 17, 2024 3:14pm Screening PSA (prostate spec ific antigen) acute November 17, 2024 3:14pm Wellness examination acute November 17, 2024 3:14pm Screening for colon cancer noneactiv e November 17, 2024 3:14pm [facility] Work Phone: History general Narrative - Reported* Type Description Date Medical History Hepatic steatosis Medical History Pulmonary nodule Medical History Malignant neoplasm of descended left testis Medical History Lipoma of [...] LEFT 08/2014 Hospitalization History see surgical history [facility] Other Hospital Discharge instructionsAmbulatory Orders* Referral to Gastroenterology Location: None Selected [facility] Work Phone: Summary Purpose Family History Relationship Condition Age at Onset Recorded Date/T tee father Heart disease Unknown Malignant neoplasm Unknown Advance Directives Documents on File Type Date 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 Advance Directives and Living Will Power of Employment Educational Coord Documents on File Type Date 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 Advance Directives and Living Will Power of Employment Educational Coord Documents on File Type Date 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 ACP-Advance Directive ACP-Power of Employment Educational Coord Advance Directive Response Recorded Date/ Time Advance Directives No November 03 024 1:34pm Procedure Findings Note HNO ID: [id number] Author: Ynes Pacheco Service: General Surgery Author Type: Physician Type: Brief Op Note Filed: 11/21/2018 5:05 PM Note Text: BRIEF OPERATIVE / PROCEDURE NOTE LOG ID: [id number] SURGERY/PROCEDURE DATE: 11/21/2018 INCISION/PROCEDURE START TIME: 2:04 PM INCISION CLOSE/PROCEDURE END TIME: 4:40 PM SURGEON(S)/PROCEDURALIST(S) AND PAN DEVULCANIZER HELPER(S): Surgeon(s) and Role: * Sunny Pacheco - Primary Physician Chemical Sprayer: Anastasia Douglas (Pa) SURGERY/PROCEDURE(S): lap and open [...] 21, 2018 TIME: 4:57 PM PAGER/CONTACT #: [phone] Reason for Referral Status Reason Specialty Diagnoses / Procedures Referre d By Contact Referred To Contact [facility] Enlarged lymph node Procedures US BIOPSY LYMPH NODE Bert Wooten MD [address] [place], [place] [id number] Status Reason Specialty Diagnoses / Procedures Referre d By Contact Referred To Contact [facility] Incidental pulmonary nodule Procedures CT CHEST WO CONTRAST Devendra Carr, DO [address] [id number] Status Reason Specialty Diagnoses / Procedures Referre d By Contact Referred To Contact [facility] Lung nodule Procedures PET CT SKULL BASE TO MID THIGH Devendra Carr, DO [address] [place] [address] Status Reason Specialty Diagnoses / Procedures Referre d By Contact Referred To Contact [facility] Enlarged lymph node Procedures US EXTREMITY LEFT NON VASC LIMITED HC US EXTREM LIMITED NONVASC Bert Wooten P, MD [address] [facility] [facility] [place] [address] Reason *Waiting for appt He is being referred for screening colonoscopy Diagnosis 1 Colon cancer cheryl sanabria (Z12.11) Diagnosis 2 Hx of colonic polyp (Z86.010) Diagnosis 3 Family history of co larissa cancer (Z80.0) Referral Organization [facility] Referring Provider First Name Devendra Referring Provider Last Name [facility] Referring Provider Specialty Internal Me dicine Referred Organization [facility] Gastroenterolo gy Referred Provider Desmond Stoll Referred Address [address] [facility],[facility] [address] ,[place], [place],[address] Referred Provider Specialty Gastroentero logy Referral Priority Routine General Notes Mr. Lacey is belenina sanabria referred for a screening colonoscopy. He is [...] your doctor if you can take an leqi-cgl-megnagr medicine. Ice may also applied to site [...] Diagnosis Incidental pulmonary nodule Solitary pulmonary nodule Chief Complaint and Reason for Visit Chief Complaint pulled muscle Reason for Visit Strain of left knee Chief Complaint pulled muscle left knee pain Reason for Visit Strain of left knee Internal derangement of left knee Left knee pain Paresthesias Chief Complaint left knee pain skintag removal Reason for Visit Internal derangement of left knee Left knee pain Paresthesias Left knee pain Paresthesias Chief Complaint Admit Date Biometric Screening November 17, 2024 3:14pm Reason for Visit Admit Date Hypercholesterolemia November 17, 2024 3:14p m Hypertension November 17, 2024 3:14pm Obesity November 17, 2024 3:14pm Screening PSA (prostate specific antigen ) November 17, 2024 3:14pm Wellness examination November 17, 2024 3:14p m Screening for colon cancer November 17, 2024 3:14pm Additional Source Comments (unrecognized sect ion and content) No Status Records FoundNo Status Records FoundNo Status Records FoundNo Status Records FoundNo Status Records FoundNo Status Records FoundNo Status Records Found INFORMATION SOURCE (unrecogn ized section and content) DATE CREATED AUTHOR 12/05/2018 [facility] DATE CREATED AUTHOR AUTHOR'S ORGANIZ ATION 12/06/2018 [facility] DATE CREATED AUTHOR AUTHOR'S ORGANIZ ATION 12/31/2018 [facility] DATE CREATED AUTHOR AUTHOR'S ORGANIZ ATION 01/17/2019 [facility] DATE CREATED AUTHOR AUTHOR'S ORGANIZ ATION 08/21/2019 [facility] DATE CREATED AUTHOR AUTHOR'S ORGANIZ ATION 06/05/2021 [facility] DATE CREATED AUTHOR AUTHOR'S ORGANIZ ATION 08/30/2022 [facility] Reason for Visit (unrecogniz ed section and content) Status Reason Specialty Diagnoses / Procedures Referre d By Contact Referred To Contact Open Radiology Diagnoses Enlarged lymph node Procedures US BIOPSY LYMPH NODE Bert Wooten MD [address] [facility] [address] [place] [address] Status Reason Specialty Diagnoses / Procedures Referre d By Contact Referred To Contact Closed Radiology Diagnoses Solitary pulmonary nodule Procedures HC CT CHEST W/O CONTRAST Devendra Carr DO [address] [place] [address] [facility] [address] [place] [address] Status Reason Specialty Diagnoses / Procedures Referred By Contact Referred To Contact Pending Review Radiology Diagnoses Solitary pulmonary nodule Procedures HC PET/CT SKULL BASE TO MID THIGH Devendra Carr DO [address] [place] [address] [facility] [address] [place] [address] Status Reason Specialty Diagnoses / Procedures Referre d By Contact Referred To Contact Open Diagnoses Enlarged lymph node Procedures US EXTREMITY LEFT NON VASC LIMITED HC US EXTREM LIMITED NONVASC Bert Wooten MD [address] [facility] [address] [place] [id number] Care Teams (unrecognized sec tion and content) Team Status: Active Member Role Status Dates Devendra Carr DO Primary Care Provider Active Team Status: Inactive Member Role Status Dates Devendra Carr DO Primary Care Provide r, Attending Provider Active Start: December 11, 2023 End: December 11, 2023 Team Status: Inactive Member Role Status Dates Devendra Carr DO Primary Care Provide r, Attending Provider Active Start: February 12, 2024 End: February 12, 2024 [employer] Relationship Specialty Start Date End Date Devendra Carr DO PCP - General Internal Medicine 06/06/19 Team Status: Active Member Role Status Dates Devendra Carr DO Primary Care Provide r, Attending Provider Active Start: September 28, 2023 Team Status: Inactive Member Role Status Dates Devendra Carr DO Primary Care Provider Active Start: November 04, 2023 End: November 04, 2023 Lois Hernandez APRN [employer] Attending Provider Act daniel Start: November 04, 2023 End: November 04, 2023 Team Status: Inactive Member Role Status Dates Devendra Carr DO Primary Care Provide r, Attending Provider Active Start: November 17, 2024 End: November 17, 2024 Goals (unrecognized section and content) Goals may be documented in a n alternate section FOR RECORDS PERTAINING TO PATIENTS WHO ARE [...] BE BASED ON THE PRIMARY CLINICAL RECORDS. [facility] [employer] [facility]. provides no warranty or guarantee of the accuracy or completeness of information in this document.
[2024-11-28 09:33] LABS: Basophils Absolute Auto 0.1 10^3/uL (0.0-0.1); Basophils Percent Auto 1.7 % (0.2-2.0); Eosinophils Absolute Auto 0.2 10^3/uL (0.0-0.7); Eosinophils Percent Auto 3.1 % (0.9-7.0); Hematocrit 42.9 % (42.0-54.0); Hemoglobin 14.7 g/dL (14.0-18.0); Immature Granulocytes Abs Auto 0.05 10^3/uL (0.00-0.03); Immature Granulocytes Pct Auto 0.7 % (0.0-0.5); Lymphocytes Absolute Auto 1.8 10^3/uL (1.2-3.8); Lymphocytes Percent Auto 25.8 % (20.5-60.0); Mean Corpuscular HGB Conc 34.3 g/dL (29.9-35.2); Mean Corpuscular Hemoglobin 29.6 pg (25.9-34.0); Mean Corpuscular Volume 86.5 fL (80.0-94.0); Mean Platelet Volume 9.2 fL (9.5-13.5); Monocytes Absolute Auto 0.6 10^3/uL (0.3-0.8); Monocytes Percent Auto 8.7 % (1.7-12.0); Neutrophils Absolute Auto 4.1 10^3/uL (1.4-6.5); Platelet Count 192 10^3/uL (150-450); Red Blood Count 4.96 10^6/uL (4.70-6.10); Red Cell Distribution Width 12.9 % (11.0-15.0); White Blood Count 6.9 10^3/uL (4.0-11.0)
[2024-11-28 10:35] LABS: Alanine Aminotransferase 32 U/L (16-63); Albumin Globulin Ratio 1.1; Albumin Level 3.7 g/dL (3.4-5.0); Alkaline Phosphatase 68 U/L (46-116); Anion Gap 13.5; Aspartate Amino Transferase 20 U/L (15-37); BUN Creatinine Ratio 13.7; Bilirubin Total 0.7 mg/dL (0.2-1.0); Carbon Dioxide 28.5 mmol/L (21.0-32.0); Chloride 104 mmol/L (98-107); Chol HDL Ratio 2.8; Cholesterol 150 mg/dL (<=200); Estimated GFR (African America >60 (>=60 mL/min/1.73m^2); Estimated GFR (Non-African Ame >60 (>=60 mL/min/1.73m^2); Globulin 3.4 g/dL; Glucose 106 mg/dL (74-106); HDL Cholesterol 53 mg/dL (40-60); LDL Cholesterol Calculated 75.4 mg/dL; Sodium 142 mmol/L (136-145); Total Protein 7.1 g/dL (6.4-8.2); Triglycerides 108 mg/dL (<=150); VLDL CHOLESTEROL 21.6 mg/dL
[2024-11-28 10:42] LABS: Prostate Specific Antigen Scrn 1.79 ng/mL (<=4.00)
== END 2024-11-28 09:17 | disposition home or self-care (01) ==
LOC: LAB 09:18
PROVIDERS: PCP Internal Medicine; Visit Provider Internal Medicine
DX: Z00.00 Encounter for general adult medical examination without abnormal findings (principal); Z12.5 Encounter for screening for malignant neoplasm of prostate
CPT/HCPCS: 36415; 80053; 80061; 85025; G0103